=== PATIENT | male | born 1960 | race Caucasian/White ===

== ENCOUNTER → 2019-08-29 11:00 | Outpatient (CLI) | payer BC, SELFPAY ==
--- NOTE | 2019-08-29 11:55 | NEURO_ITS ---
NCS and/or EMG Patient Report Ordering Doctor: Garrett Arora DATE OF SERVICE: 08/29/19 Breezy Smith is a 58-year-old male presents for electrodiagnostic testing of the left upper limb. He reports pain in the left wrist for the past 3 months. Electrodiagnostic findings: Left median motor nerve demonstrates prolonged di stal latency with normal amplitude and reduced conduction velocity. Left ulnar motor nerve demonstrates normal distal latency with an almost 20% drop in conduction across the elbow. Borderline prolonged left median F-wave. Prolonged left median sensory latency at the wrist. On needle EMG, all muscles tested in the left upper limb showed no evidence of denervation with normal motor unit action potentials. Electrodiagnostic impression: This is an abnormal study in the left upper limb. 1. Electrodiagnostic findings demonstrate left-sided median mononeuropathy. This is consistent with a mild to moderate left carpal tunnel syndrome 2. Electrodiagnostic findings demonstrate left-sided ulnar neuropathy, consistent with a mild cubital tunnel syndrome. 3. No electrodiagnostic evidence for cervical radiculopathy. If there are any further questions, please do not hesitate to contact me
== END ==
LOC: PSN 11:02
PROVIDERS: Family Provider Family Medicine; PCP Family Medicine; Referring Provider Family Medicine; Visit Provider Family Medicine
DX: M25.532 Pain in left wrist (principal); R20.0 Anesthesia of skin; R20.2 Paresthesia of skin; R29.898 Other symptoms and signs involving the musculoskeletal system
CPT/HCPCS: 95886; 95909

== ENCOUNTER → 2020-08-27 | Outpatient (CLI) | payer BC, SELFPAY ==
[2020-08-27 14:03] VITALS: BMI 32.3
== END | disposition home or self-care (01) ==
LOC: LABSPEC 15:09
PROVIDERS: PCP Family Medicine; Visit Provider Physician Assistant
DX: Z20.828 Contact with and (suspected) exposure to other viral communicable diseases (principal)
CPT/HCPCS: 87635; U0003

== ENCOUNTER 2023-09-01 23:32 | Emergency (ER) | payer BC, SELFPAY ==
[2023-09-01 23:32] VITALS: BP 150/92; PULSE 77; RESP 18; TEMP 36.6; O2SAT 98; BMI 32.6
--- NOTE | 2023-09-01 23:51 | ED.VIS.BACK ---
HPI History of Present Illness Chief Complaint: Back Detail of Chief Complaint: Left-sided back pain over the latissimus dorsi muscle. Informant: patient Onset/Context/Timing Onset: Days (Onset this past August 27) Context: Sudden Onset Chronic pain exacerbated by: Not applicable Injury: - (No injury the patient is aware of) Timing: Intermittent (Documented HPI narrative) Quality: Dull Location: Thoracic Current Severity: Mild Maximum Severity: Moderate Worsened by: improves with Movement, Bending and Lifting; worse with Ambulation or Night time pain Relieved by: Nothing (Initially ibuprofen now nothing) Associated Symptoms Associated Symptoms: Negative for Numbness, Tingling, Radiation to Right Leg, Radiation to Left Leg, Fever, Abdominal Pain, Dysuria, Unable to Ambulate, Unable to Transfer, Urinary Retention, Urinary Incontinence, Constipation or Fecal Incontinence Narrative Narrative: Patient is a 62-year-old male who lives alone. He presents with left-sided back pain over the latissimus dorsi muscle. Movement of his arm and torso increases pain. Nothing alleviates his pain presently. He states Tuesday evening he took several ibuprofen tablets that he was prescribed by his PCP. Tuesday upon awakening he was pain-free. He now presents because the pain has gotten worse and not improving with ibuprofen. He denies fever, chills night sweats. He denies recent upper respiratory symptoms. He denies history of VTE. He denies leg pain, swelling or discoloration. He denies dyspnea or dyspnea on exertion. He denies abdominal pain, nausea, vomiting or diarrhea. Denies constipation. He denies history of trauma. He has not noted a rash. Prior similar symptoms: No Recent Illness/Hospitalization: No [facility] Medical History Arthritis Chronic neck and back pain HTN (hypertension) Shoulder pain Stroke Home Medications Lisinopril 40 mg PO BID 05/11/17 [History Last Taken Unknown] Metoprolol Tartrate 200 mg PO BREAKFAST 05/11/17 [History Last Taken Unknown] hydrochlorothiazide 25 mg tablet 25 mg PO DAILY 05/11/17 [History Last Taken Unknown] paroxetine HCl 10 mg tablet (Paxil) 10 mg PO DAILY 05/11/17 [History Last Taken Unknown] hydrocodone-acetaminophen 5-325mg 5mg-325mg 1 tab PO Q6H PRN PRN Pain 3 days #10 TABLETS 09/01/23 [Rx Last Taken Unknown] Allergy/AdvReac Type Severity Reaction Status Date / Time Penicillins Allergy Unknown Verified 09/01/23 23:32 Family History Other Hypertension Social History (Updated 09/01/23 @ 23:[address] Chris Gorman MD) household members: none Smoking Status: Current every day smoker tobacco type: cigarettes alcohol intake: never ROS ROS ED Constitutional Constitutional ED: Denies chills, fever(s), subjective or sweats Cardiovascular Cardiovascular: Denies chest pain, orthopnea, palpitations, paroxysmal nocturnal dyspnea or racing heartbeat Respiratory/Chest Respiratory/Chest: Reports other Details: He denies pleuritic pain. ; Denies dyspnea, dyspnea on exertion, orthopnea, paroxysmal nocturnal dyspnea or sputum Gastrointestinal Gastrointestinal: Denies abdominal pain, constipation, diarrhea, melena, nausea or vomiting Genitourinary Genitourinary ED: Denies dysuria, hematuria or urinary frequency Musculoskeletal Musculoskeletal: Reports back pain; Denies arthralgias, myalgias or neck pain Integumentary Denies rash Hematologic/Lymphatic Hematologic/Lymphatic: Denies easy bleeding or easy bruising EXAM Physical Exam Const Vital Signs: 09/01/23 23:32 Temperature 97.9 F Temperature Source Temporal Pulse Rate 77 Respiratory Rate 18 Blood Pressure 150/92 H Blood Pressure Mean 111 Pulse Ox 98 Oxygen Delivery Method Room Air Positive well nourished, well developed and obese General Appearance ED: well developed and NAD; Negative for pallor Nutritional Appearance: obese HEENT Reports moist mucous membranes HEENT Narrative: Head is atraumatic normocephalic. Ears reveal dry skin. Nares patent. Eyes PERRL and EOMs intact bilaterally General Eye ED: Negative for pale conjunctiva or scleral icterus Neck no lymphadenopathy, supple and no JVD Resp normal respiratory effort and clear to auscultation bilaterally Resp Narrative: He does have pain ovation over the left latissimus dorsi muscle. Having him pulled down against resistance because of discomfort. Having him push and pull against resistance also causes some discomfort. Pain is reproducible. Cardio regular rate, regular rhythm, S1 normal heart sound, S2 normal heart sound and no murmurs GI normal to inspection, nondistended, normoactive bowel sounds, soft to palpation, non-tender, non-distended and no masses Back/Spine normal to inspection; Negative for no thoracic nor lumbar tenderness General Back: CVA tenderness; Negative for scar(s) Cervical Spine: Negative for cervical spine tenderness Lumbar Spine / Lower Back: Negative for ROM limited Extremity normal to inspection and no clubbing, cyanosis or edema Neuro oriented x3 and no sensory deficits noted Sensorium / Orientation: alert Psych mental status grossly normal Skin no rashes or lesions noted and no wounds General Skin Exam: Negative for jaundice or pallor MDM MDM MDM Narrative Medical decision making narrative: Patient has muscular pain that was initially alleviated with ibuprofen. He presents now because he is not getting relief. Pain is reproducible and worse with movement. Since he drove himself he was given a prescription for [place] which she can take at home. He also was encouraged apply ice. If he has no improvement after 2 to 3 days she follow-up with his PCP. He does have history of chronic back pain. Per prior records he has no contraindication to NSAIDs. History & Record Review Additional record(s) reviewed:: Prior ED visit and Prior labs Treatment and Re-Evaluation Narrative: Since patient drove himself and he already has already taken 800 mg ibuprofen he was prescribed [place]. Discharge Plan Triage Chief Complaint: Back ED Provider: Chris Gorman Dx/Rx/DC Orders Clinical Impression: Strain of latissimus dorsi muscle Instructions: ED Back Sprain/Strain Prescriptions: New hydrocodone-acetaminophen [hydrocodone-acetaminophen] 5-325 mg tablet 1 tab PO Q6H PRN PRN (Reason: Pain) 3 Days Qty: 10 0RF No Action hydrochlorothiazide 25 MG tablet 25 mg PO DAILY Lisinopril 40 mg PO BID Metoprolol Tartrate 200 mg PO BREAKFAST paroxetine HCl [Paxil] 10 MG tablet 10 mg PO DAILY Primary Care Provider: Garrett Arora Referrals: Garrett Arora MD [Primary Care Provider] - 3-5 Days if not improving Activity Restrictions/Additional Instructions: 1. Apply ice to your back 6-10 times a day 2. Continue taking the ibuprofen you were prescribed by your doctor 3. Take the hydrocodone as instructed. Disposition Disposition: Home, Self Care
[2023-09-02 00:24] VITALS: PULSE 75; RESP 16; O2SAT 98
== END 2023-09-02 00:24 | disposition home or self-care (01) ==
LOC: ED 09-02
PROVIDERS: Emergency Provider Emergency Medicine; PCP Family Medicine; Visit Provider Emergency Medicine
DX: S29.012A Strain of muscle and tendon of back wall of thorax, initial encounter (principal); X58.XXXA Exposure to other specified factors, initial encounter; I10 Essential (primary) hypertension; G89.29 Other chronic pain; Z79.899 Other long term (current) drug therapy; F17.210 Nicotine dependence, cigarettes, uncomplicated
CPT/HCPCS: 99282

== ENCOUNTER → 2025-02-07 | Outpatient (CLI) | payer BC, SELFPAY ==
[2025-02-07 11:42] LABS: Bacteria 0 SEEN /hpf (None Seen); Mucous, Urine 0 SEEN /hpf (<or=2+); Red Blood Cells-Urine 0 SEEN /hpf (0-5); Squamous Epithelial Cells - UA 0 SEEN /hpf (0-5); White Blood Cells 0 SEEN /hpf (0-5)
[2025-02-07 12:18] LABS: Absolute Lymphocyte Count 2.21 X10^3/uL (0.83-4.51); Absolute Neutrophil Count 4.2 X10^3/uL (2.0-7.7); Basophil# 0.05 X10^3/uL; Basophil% 0.7 % (0-1); Eosinophil# 0.38 X10^3/uL; Eosinophils% 5.1 % (0-5); Hematocrit 38.4 % (40-54); Hemoglobin 13.8 g/dL (13.0-16.5); Lymphocyte # 2.21 X10^3/ul (0.83-4.51); Lymphocyte % 29.7 % (19-41); Mean Corp Hgb Conc 35.9 g/dL (32-36); Mean Corpuscular Hgb 32.6 pg (27.0-32.0); Mean Corpuscular Volume 90.8 fL (80-94); Mean Platelet Vol. 9.9 fl (6.2-12.0); Monocyte% 8.1 % (0-10); NRBC Flagged by Analyzer 0 % (0-5); Neutrophil # 4.19 X10^3/uL (2.7-7.7); Neutrophil % 56.1 % (47-70); Platelet Count 228 K/mm3 (150-450); RBC Distribution Width CV 12.1 % (11.6-14.6); RBC Distribution Width SD 40.1 fl (35.1-43.9); Red Blood Count 4.23 M/mm3 (4.6-6.2); White Blood Count 7.5 K/mm3 (4.4-11.0)
[2025-02-07 13:05] LABS: Hemoglobin A1c 6.2 % (<=5.6)
[2025-02-07 13:13] LABS: ALB/GLOB Ratio 1.4 RATIO (0.9-2.4); AST(SGOT) 29 U/L (<=37); Alanine Aminotransfer ALT/SGPT 34 U/L (<=46); Albumin, Serum 4.2 g/dL (3.4-4.8); Alkaline Phosphatase 80 U/L (40-129); Anion Gap 12 (5-15); BUN 21 mg/dL (4-19); BUN/Creat Ratio 18.9 RATIO (10-20); Calcium,Total 9.2 mg/dL (7.6-11.0); Chloride 104 mmol/L (98-108); Cholesterol 149 mg/dL (<=200); Creatinine, Serum 1.13 mg/dL (0.70-1.20); EST Glomerular Filtration Rate 73 (>60); Globulin 3.1 g/dL (2.2-4.2); Glucose 155 mg/dL (70-99); High Density Lipoprotein 31 mg/dL; Low Density Lipoprotein Calc. 53 mg/dL; PSA,Total- Diagnostic 0.66 ng/mL (0.00-4.00); Potassium 3.8 mmol/L (3.3-5.1); Protein, Total 7.2 g/dL (5.9-8.4); Sodium Level 139 mmol/L (133-145); Total Bilirubin 0.47 mg/dL (0.00-1.30); Triglycerides 326 mg/dL; Very Low Density Lipoprotein 65 mg/dL (5-40); cholesterol:hdl ratio screen 4.76
[2025-02-07 13:31] LABS: Color, Urine Yellow (Yellow); Glucose, Dipstick Normal (Normal); Ketone-Dipstick Negative (Negative); Leukocyte Esterase-Dipstick Negative /ul (Negative); Nitrite-Dipstick Negative (Negative); Occult Blood-Urine Negative /ul (Negative); Protein-Dipstick 15 mg/dl (Negative); Urine Bilirubin Dipstick Negative (Negative); Urine Clarity Clear (Clear); Urine Urobilinogen Normal (Normal)
[2025-02-07 14:17] LABS: Microalbumin,Random Urine < 12.0 mg/L (NO RANGE EST.); Microalbumin:Creatinine Ratio UNABLE TO CALCULATE mg/g CRE
== END | disposition home or self-care (01) ==
PROVIDERS: PCP Family Medicine; Referring Provider Family Medicine; Visit Provider Family Medicine
DX: E11.9 Type 2 diabetes mellitus without complications (principal); I10 Essential (primary) hypertension; E78.5 Hyperlipidemia, unspecified; F41.1 Generalized anxiety disorder; Z79.899 Other long term (current) drug therapy
CPT/HCPCS: 36415; 80053; 80061; 81001; 82043; 82570; 83036; 84153; 84443; 85025

== ENCOUNTER 2025-04-12 17:54 | Emergency (ER) | payer BC, SELFPAY ==
[2025-04-12 17:55] VITALS: BP 154/78; PULSE 78; RESP 16; TEMP 37.3; O2SAT 94; BMI 33.9
--- OUTSIDE RECORDS SUMMARY | 2025-04-12 19:10 | XMS RPT_ITS | CCD ---
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 by: Garrett Andrews MD - Fully Assessed Reason for Visit: Results [95] Prescriptions as of 02/08/2025 - amLODIPine (NORVASC) 5 mg tablet Take 1 tablet by mouth once daily. - metoprolol succinate ER (TOPROL XL) 200 mg 24 hr tablet Take one tab a day with 100 mg dose for total of 300 mg a day. - PARoxetine (PAXIL) 10 mg tablet Take 1 tablet by mouth once daily. - triamterene-hydroCHL OROthiazide (DYAZIDE) 37.5-25 mg per capsule Take 1 capsule by mouth once daily. - metoprolol succinate ER (TOPROL XL) 100 mg Take one daily with the 200 mg strength for total of 300 mg a day - lisinopril (ZESTRIL) 40 mg tablet Take 1 tablet by mouth two times a day. - atorvastatin (LIPITOR) 40 mg tablet Take 1 tablet by mouth once daily. 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] 12/08/2016 Hypertensive retinopathy [H35.039] 12/08/2016 Leg cramp [R25.2] 06/02/2017 Well adult exam [Z00.00] 06/10/2017 Screening for colon cancer [Z12.11] 06/10/2017 Type 2 diabetes mellitus without complication, *10/16/2017 ED (erectile dysfunction) of organic origin [N5*01/24/2019 DESIRE (generalized anxiety disorder) [F41.1] 09/26/2014 Carpal tunnel syndrome, left [G56.02] 09/10/2019 Ulnar neuropathy of left upper extremity [G56.2*09/10/2019 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.816] 05/01/2020 History of COVID-19 [Z86.16] 09/29/2021 Ex-smoker [Z87.891] 12/10/2022 Seborrheic dermatitis of scalp [L21.9] 01/25/2024 Medication management [Z79.899] 08/01/2024 Foot callus [L84] 02/06/2025 Numbness and tingling in right hand [R20.0, R20*02/06/2025 Right wrist pain [M25.531] 02/06/2025 Encounter Status:Closed by KARIN YEAGER on 02/08/25 Normal [facility] Calculated very low density lipoprotein (VLDL) cholesterol measurementOrdered By: Garrett Andrews on 02-07-2025 Calculated very low density lipoprotein (VLDL) cholesterol measurement 65 mg/dL High 5-40 [facility] Carbon dioxide, total [Moles /volume] in Central venous bloodOrdered By: Garrett Andrews on 02-07-2025 CO2 [Moles/Vol] 23.0 mmol/L 21.0-32.0 [facility] Chloride assayOrdered By: Earl Andrews on 02-07-2025 Chloride [Moles/Vol] 104 mmol/L 98-108 [facility] Comprehensive Metabolic Prof ilon 02-07-2025 Albumin [Mass/Vol] 4.2 g/dL Normal 3.4-4.8 [facility] Comment on above: Performed By: #### L 100.0100, L400.0001, L502.0250, L501.9940, L501.9520, L500.4050, L500.4100, L501.9985 #### [facility] [address] [place], [address] Albumin/Globulin [Mass ratio] 1.4 {ratio} Normal 0.9-2.4 [facility] Comment on above: Performed By: #### L 100.0100, L400.0001, L502.0250, L501.9940, L501.9520, L500.4050, L500.4100, L501.9985 #### [facility] [address] [place], [address] ALK PHOS 80 U/L Normal 40-129 [facility] Comment on above: Performed By: #### L 100.0100, L400.0001, L502.0250, L501.9940, L501.9520, L500.4050, L500.4100, L501.9985 #### [facility] [address] [place], [address] ALT [Catalytic activity/Vol] 34 U/L Normal <=46 [facility] Comment on above: Performed By: #### L 100.0100, L400.0001, L502.0250, L501.9940, L501.9520, L500.4050, L500.4100, L501.9985 #### [facility] [address] [place], [address] AST [Catalytic activity/Vol] 29 U/L Normal <=37 [facility] Comment on above: Performed By: #### L 100.0100, L400.0001, L502.0250, L501.9940, L501.9520, L500.4050, L500.4100, L501.9985 #### [facility] [address] [place], [address] Bilirubin [Mass/Vol] 0.47 mg/dL Normal 0.00-1.30 [facility] Comment on above: Performed By: #### L 100.0100, L400.0001, L502.0250, L501.9940, L501.9520, L500.4050, L500.4100, L501.9985 #### [facility] [address] [place], [address] BUN/CRE 18.9 RATIO Normal 10-20 [facility] Comment on above: Performed By: #### L 100.0100, L400.0001, L502.0250, L501.9940, L501.9520, L500.4050, L500.4100, L501.9985 #### [facility] [address] [place], [address] Calcium [Mass/Vol] 9.2 mg/dL Normal 7.6-11.0 [facility] Comment on above: Performed By: #### L 100.0100, L400.0001, L502.0250, L501.9940, L501.9520, L500.4050, L500.4100, L501.9985 #### [facility] [address] [place], [address] Chloride [Moles/Vol] 104 mmol/L Normal 98-108 [facility] Comment on above: Performed By: #### L 100.0100, L400.0001, L502.0250, L501.9940, L501.9520, L500.4050, L500.4100, L501.9985 #### [facility] [address] [place], [address] CO2 [Moles/Vol] 23.0 mmol/L Normal 21.0-32.0 [facility] Comment on above: Performed By: #### L 100.0100, L400.0001, L502.0250, L501.9940, L501.9520, L500.4050, L500.4100, L501.9985 #### [facility] [address] [place], [address] Creatinine [Mass/Vol] 1.13 mg/dL Normal 0.70-1.20 [facility] Comment on above: Performed By: #### L 100.0100, L400.0001, L502.0250, L501.9940, L501.9520, L500.4050, L500.4100, L501.9985 #### [facility] [address] [place], [address] GAP 12 Normal 5-15 [facility] Comment on above: Performed By: #### L 100.0100, L400.0001, L502.0250, L501.9940, L501.9520, L500.4050, L500.4100, L501.9985 #### [facility] [address] [place], [address] GFR/1.73 sq M.predicted among non-blacks MDRD (S/P/Bld) [Vol rate/Area] 73 mL/min/{1.73_m2} Normal >60 [facility] Comment on above: Result Comment: mL/m in/1.73m2 CKD-EPI Creatinine Equation (2020) Performed By: #### L 100.0100, L400.0001, L502.0250, L501.9940, L501.9520, L500.4050, L500.4100, L501.9985 #### [facility] [address] [place], [address] Globulin (S) [Mass/Vol] 3.1 g/dL Normal 2.2-4.2 [facility] Comment on above: Performed By: #### L 100.0100, L400.0001, L502.0250, L501.9940, L501.9520, L500.4050, L500.4100, L501.9985 #### [facility] [address] [place], [address] Glucose [Mass/Vol] 155 mg/dL High 70-99 [facility] Comment on above: Performed By: #### L 100.0100, L400.0001, L502.0250, L501.9940, L501.9520, L500.4050, L500.4100, L501.9985 #### [facility] [address] [place], [address] Potassium [Moles/Vol] 3.8 mmol/L Normal 3.3-5.1 [facility] Comment on above: Performed By: #### L 100.0100, L400.0001, L502.0250, L501.9940, L501.9520, L500.4050, L500.4100, L501.9985 #### [facility] [address] [place], [address] Sodium [Moles/Vol] 139 mmol/L Normal 133-145 [facility] Comment on above: Performed By: #### L 100.0100, L400.0001, L502.0250, L501.9940, L501.9520, L500.4050, L500.4100, L501.9985 #### [facility] [address] [place], [address] T PROT 7.2 g/dL Normal 5.9-8.4 [facility] Comment on above: Performed By: #### L 100.0100, L400.0001, L502.0250, L501.9940, L501.9520, L500.4050, L500.4100, L501.9985 #### [facility] [address] [place], [address] Urea nitrogen [Mass/Vol] 21 mg/dL High 4-19 [facility] Comment on above: Performed By: #### L 100.0100, L400.0001, L502.0250, L501.9940, L501.9520, L500.4050, L500.4100, L501.9985 #### [facility] [address] [place], [address] Eosinophil percentageOrdered By: Garrett Andrews on 02-07-2025 Eosinophils/100 WBC (Bld) 5.1 % High 0-5 [facility] Erythrocyte distribution wid th ratioOrdered By: Garrettsimeon Andrews on 02-07-2025 Erythrocyte distribution width (RBC) [Ratio] 12.1 % 11.6-14.6 [facility] Erythrocyte distribution wid th standard deviationOrdered By: Garrett Andrews on 02-07-2025 Erythrocyte distribution width (RBC) [Ratio] 40.1 fl 35.1-43.9 [facility] Glomerular filtration rate ( GFR) estimation/1.73 sq m using serum, plasma, or whole bOrdered By: Garrett Andrews on 02-07-2025 GFR/1.73 sq M.predicted among non-blacks MDRD (S/P/Bld) [Vol rate/Area] 73 mL/min/{1.73_m2} >60 [facility] Comment on above: mL/min/1.73m2 CKD-EP I Creatinine Equation (2020) Hematocrit Auto (Bld) [Volum e fraction]Ordered By: Garrett Andrews on 02-07-2025 Hematocrit (Bld) [Volume fraction] 38.4 % Low 40-54 [facility] Hemoglobin A1con 02-07-2025 HbA1c (Bld) [Mass fraction] 6.2 % High <=5.6 [facility] Comment on above: Result Comment: Norm al < 5.7 % Prediabetic 5.7 - 6.4 % Diabetic >or= 6.5 % Please note range changes. Performed By: #### L 100.0100, L400.0001, L502.0250, L501.9940, L501.9520, L500.4050, L500.4100, L501.9985 #### [facility] [address] [place], [place], [id number] Hemoglobin A1c percentageOrd ered By: Garrett Andrews on 02-07-2025 HbA1c (Bld) [Mass fraction] 6.2 % High <5.7 [facility] Comment on above: Normal < 5.7 % Predi abetic 5.7 - 6.4 % Diabetic >or= 6.5 % Please note range changes. Hemoglobin measurementOrdere d By: Garrett Andrews on 02-07-2025 Hemoglobin (Bld) [Mass/Vol] 13.8 g/dL 13.0-16.5 [facility] Immature granulocytes/100 WB C Auto (Bld)Ordered By: Garrett Andrews on 02-07-2025 Immature granulocytes/100 WBC (Bld) 0.300 % 0.0-0.9 [facility] Comment on above: IG% - Immature Granu locytes (promyelocytes, myelocytes and metamyelocytes) > 1% indicates that a LEFT SHIFT is Present. Ketones Test strip Ql (U)Ord ered By: Garrett Andrews on 02-07-2025 Ketones Ql (U) Negative Negative [facility] LDL calc ser/plasOrdered By: Garrett Andrews on 02-07-2025 Cholesterol in LDL [Mass/Vol] 53 mg/dL [facility] Comment on above: Vwwsluhqnq=376-878 m g/dL & Higher Tkkr=043 mg/dL or greater Laboratory - Chemistry and C hemistry - challengeOrdered By: Garrett Andrews on 02-07-2025 AST [Catalytic activity/Vol] 29 U/L <38 [facility] Lipid Profileon 02-07-2025 CHOL:HDL 4.76 Normal [facility] Comment on above: Performed By: #### L 100.0100, L400.0001, L502.0250, L501.9940, L501.9520, L500.4050, L500.4100, L501.9985 #### [facility] [address] [place], [address] Cholesterol [Mass/Vol] 149 mg/dL Normal <=200 [facility] Comment on above: Result Comment: Chol esterol level, Desirable <200 mg/dL Borderline high cholesterol 200-239 mg/dL High cholesterol >=240 mg/dL Recommendations of the NCEP Adult Treatment Panel for the following risk-cutoff thresholds for the [place] population. Performed By: #### L 100.0100, L400.0001, L502.0250, L501.9940, L501.9520, L500.4050, L500.4100, L501.9985 #### [facility] [address] [place], [place], [id number] Cholesterol in HDL [Mass/Vol] 31 mg/dL Low [facility] Comment on above: Result Comment: Josie onal Cholesterol Education Program (NCEP) guidelines: <40 mg/dL: Low HDL-cholesterol (major risk factor for CHD) >= 60 mg/dL: High HDL-cholesterol (negative risk factor for CHD) HDL-cholesterol is affected by a number of factors, e.g. smoking, exercise, hormones, sex and age. Performed By: #### L 100.0100, L400.0001, L502.0250, L501.9940, L501.9520, L500.4050, L500.4100, L501.9985 #### [facility] [address] [place], [place], [id number] Cholesterol in LDL [Mass/Vol] 53 mg/dL Normal [facility] Comment on above: Result Comment: Bord sdepne=140-966 mg/dL Higher Idri=181 mg/dL or greater Performed By: #### L 100.0100, L400.0001, L502.0250, L501.9940, L501.9520, L500.4050, L500.4100, L501.9985 #### [facility] [address] [place], [address] Cholesterol in VLDL [Mass/Vol] 65 mg/dL High 5-40 [facility] Comment on above: Performed By: #### L 100.0100, L400.0001, L502.0250, L501.9940, L501.9520, L500.4050, L500.4100, L501.9985 #### [facility] [address] [place], [place], [id number] Triglyceride [Mass/Vol] 326 mg/dL High [facility] Comment on above: Result Comment: The drugs N-Acetylcysteine and Metamizole may falsely depress this assay. Normal range: <150 mg/dL Borderline High: 150-199 mg/dL High: 200-499 mg/dL Very High: >500 mg/dL Performed By: #### L 100.0100, L400.0001, L502.0250, L501.9940, L501.9520, L500.4050, L500.4100, L501.9985 #### [facility] [address] [place], [place], [id number] MCV (mean corpuscular volume ) determinationOrdered By: Garrett Andrews on 02-07-2025 MCV (RBC) [Entitic vol] 90.8 fL 80-94 [facility] Mean corpuscular hemoglobin (MCH) determinationOrdered By: Garrett Andrews on 02-07-2025 MCH (RBC) [Entitic mass] 32.6 pg High 27.0-32.0 [facility] Mean corpuscular hemoglobin concentration (MCHC) determinationOrdered By: Garrett Andrews on 02-07-2025 MCHC (RBC) [Mass/Vol] 35.9 g/dL 32-36 [facility] Mean platelet volume determi nationOrdered By: Garrett Andrews on 02-07-2025 Platelet mean volume (Bld) [Entitic vol] 9.9 fL 6.2-12.0 [facility] Microalb:Creat Ratio,Random URon 02-07-2025 Creatinine [Mass/Vol] 145.00 mg/dL Normal 39.00-259.00 [facility] Comment on above: Performed By: #### L 100.0100, L400.0001, L502.0250, L501.9940, L501.9520, L500.4050, L500.4100, L501.9985 #### [facility] [address] [place], [place], [id number] MALB:CREAT UNABLE TO CALCULATE Normal [facility] Comment on above: Performed By: #### L 100.0100, L400.0001, L502.0250, L501.9940, L501.9520, L500.4050, L500.4100, L501.9985 #### [facility] [address] [place], [place], [id number] MICROALBUMIN,UR < 12.0 Normal NO RANGE EST. [facility] Comment on above: Performed By: #### L 100.0100, L400.0001, L502.0250, L501.9940, L501.9520, L500.4050, L500.4100, L501.9985 #### [facility] [address] [place], [place], [id number] Microalbumin/creat ratio urO rdered By: Garrett Andrews on 02-07-2025 Urine microalbumin/creatinine ratio measurement UNABLE TO CALCULATE mg/g CRE [facility] Microscopic analysis of urin e for red blood cells (RBC)Ordered By: Garrett Andrews on 02-07-2025 Microscopic analysis of urine for red blood cells (RBC) 0 SEEN /hpf 0-5 [facility] Monocyte percentageOrdered B y: Garrett Andrews on 02-07-2025 Monocytes/100 WBC (Bld) 8.1 % 0-10 W [facility] Mucus LM Ql (Urine sed)Order ed By: Garrett Andrews on 02-07-2025 Mucus Ql (Urine sed) 0 SEEN /hpf [facility] Neutrophil percentageOrdered By: Garrett Andrews on 02-07-2025 Neutrophils/100 WBC (Bld) 56.1 % 47-70 [facility] Nitrite Test strip Ql (U)Ord ered By: Garrett Andrews on 02-07-2025 Nitrite Ql (U) Negative Negative [facility] Nucleated red blood cell per centageOrdered By: Garrett Andrews on 02-07-2025 Nucleated RBC/100 WBC (Bld) [Ratio] 0 % 0-5 [facility] PSA,Total- Diagnosticon 01-24 PSA, DIAGNOSTIC 0.66 ng/mL Normal 0.00-4.00 [facility] Comment on above: Result Comment: This test was performed using the [employer] tPSA method. Measured values of a patient??sample can vary depending on the testing procedure used. PSA values determined on patient samples by different testing procedures cannot be used interchangeably. If there is a change in PSA assays while monitoring therapy, sequential testing should be performed to confirm baseline values. Performed By: #### L 100.0100, L400.0001, L502.0250, L501.9940, L501.9520, L500.4050, L500.4100, L501.9985 #### [facility] [address] [place], [address] Platelet countOrdered By: Earl Andrews on 02-07-2025 Platelets (Bld) [#/Vol] 228 10*3/uL 150-450 [facility] Potassium measurement (mass/ volume)Ordered By: Garrett Andrews on 02-07-2025 Potassium (Unsp spec) [Mass/Vol] 3.8 mmol/L 3.3-5.1 [facility] Protein Test strip Ql (U)Ord ered By: Garrett Andrews on 02-07-2025 Protein Ql (U) 15 mg/dl High Negative [facility] RBC Auto (Bld) [#/Vol]Ordere d By: Garrett Andrews on 02-07-2025 RBC (Bld) [#/Vol] 4.23 10*6/uL Low 4.6-6.2 [facility] Random urine creatinine lux urement (mass/volume)Ordered By: Garrett Andrews on 02-07-2025 Creatinine Unsp time (U) [Mass/Vol] 145.00 mg/dL 39.00-259.00 [facility] Screening total cholesterol/ high density lipoprotein (HDL) cholesterol ratioOrdered By: Garrett Andrews on 02-07-2025 Cholesterol.total/Choles terol in HDL [Mass ratio] 4.76 {ratio} [facility] Serum creatinine measurement (mass/volume)Ordered By: Garrett Andrews on 02-07-2025 Creatinine [Mass/Vol] 1.13 mg/dL 0.70-1.20 [facility] Serum globulin measurementOr dered By: Garrett Andrews on 02-07-2025 Globulin (S) [Mass/Vol] 3.1 g/dL 2.2-4.2 [facility] Serum glucose measurement (m ass/volume)Ordered By: Garrett Andrews on 02-07-2025 Glucose [Mass/Vol] 155 mg/dL High 70-99 [facility] Serum or plasma alanine moyer otransferase (ALT) measurementOrdered By: Garrett Andrews on 02-07-2025 ALT [Catalytic activity/Vol] 34 U/L <47 [facility] Serum or plasma albumin lux urement (mass/volume)Ordered By: Garrett Andrews on 02-07-2025 Albumin [Mass/Vol] 4.2 g/dL 3.4-4.8 [facility] Serum or plasma albumin/glob ulin mass ratioOrdered By: Garrett Andrews on 02-07-2025 Albumin/Globulin [Mass ratio] 1.4 {ratio} 0.9-2.4 [facility] Serum or plasma alkaline sally sphatase measurementOrdered By: Garrett Andrews on 02-07-2025 ALP [Catalytic activity/Vol] 80 U/L 40-129 [facility] Serum or plasma calcium lux urement (mass/volume)Ordered By: Garrett Andrews on 02-07-2025 Calcium [Mass/Vol] 9.2 mg/dL 7.6-11.0 [facility] Serum or plasma cholesterol in HDL measurement (mass/volume)Ordered By: Garrett Andrews on 02-07-2025 Cholesterol in HDL [Mass/Vol] 31 mg/dL Low >40 [facility] Comment on above: National Cholesterol Education Program (NCEP) guidelines:<40 mg/dL: Low HDL-cholesterol (major risk factor for CHD)>= 60 mg/dL: High HDL-cholesterol (negative risk factor for CHD)HDL-cholesterol is affected by a number of factors, e.g. smoking, exercise, hormones, sex and age. Serum or plasma cholesterol measurement (mass/volume)Ordered By: Garrett Andrews on 02-07-2025 Cholesterol [Mass/Vol] 149 mg/dL <201 [facility] Comment on above: Cholesterol level, D esirable <200 mg/dLBorderline high cholesterol 200-239 mg/dLHigh cholesterol >=240 mg/dLRecommendations of the NCEP Adult Treatment Panel for the following risk-cutoff thresholds for the [place] population. Serum or plasma urea nitroge n measurement (mass/volume)Ordered By: Garrett Andrews on 02-07-2025 Urea nitrogen [Mass/Vol] 21 mg/dL High 4-19 [facility] Sodium levelOrdered By: Kevyn Andrews on 02-07-2025 Sodium [Moles/Vol] 139 mmol/L 133-145 [facility] Squamous epithelial cells de tection in urine sediment by light microscopyOrdered By: Garrett Andrews on 02-07-2025 Epithelial cells.squamous LM Ql (Urine sed) 0 SEEN /hpf 0-5 [facility] TSH DL <= 0.005 mIU/L QnOrde red By: Garrett Andrews on 02-07-2025 TSH Qn 1.020 uIU/mL 0.300-4.200 [facility] Thyroid Stim Hormone (TSH)on 02-07-2025 TSH 1.020 uIU/mL Normal 0.300-4.200 [facility] Comment on above: Performed By: #### L 100.0100, L400.0001, L502.0250, L501.9940, L501.9520, L500.4050, L500.4100, L501.9985 #### [facility] [place], [address] Total proteinOrdered By: Monty Andrews on 02-07-2025 Protein [Mass/Vol] 7.2 g/dL 5.9-8.4 [facility] Triglycerides measurementOrd ered By: Garrett Andrews on 02-07-2025 Triglyceride [Mass/Vol] 326 mg/dL High <199 [facility] Comment on above: The drugs N-Acetylcy steine and Metamizole may falsely depress this assay. Normal range: <150 mg/dLBorderline High: 150-199 mg/dLHigh: 200-499 mg/dLVery High: >500 mg/dL Urinalysis, Completeon 02-07 BACTERIA 0 SEEN Normal None Seen [facility] Comment on above: Order Comment: Urine , Random Performed By: #### L 100.0100, L400.0001, L502.0250, L501.9940, L501.9520, L500.4050, L500.4100, L501.9985 #### [facility] [address] [place], [address] EPI,SQUAMOUS 0 SEEN Normal 0-5 [facility] Comment on above: Order Comment: Urine , Random Performed By: #### L 100.0100, L400.0001, L502.0250, L501.9940, L501.9520, L500.4050, L500.4100, L501.9985 #### [facility] [address] [place], [address] Mucus Ql (Urine sed) 0 SEEN Normal [facility] Comment on above: Order Comment: Urine , Random Performed By: #### L 100.0100, L400.0001, L502.0250, L501.9940, L501.9520, L500.4050, L500.4100, L501.9985 #### [facility] [address] [place], [address] RBC 0 SEEN Normal 0-5 [facility] Comment on above: Order Comment: Urine , Random Performed By: #### L 100.0100, L400.0001, L502.0250, L501.9940, L501.9520, L500.4050, L500.4100, L501.9985 #### [facility] [address] [place], [address] WBC 0 SEEN Normal 0-[address] [place] [address] Comment on above: Order Comment: Urine , Random Performed By: #### L 100.0100, L400.0001, L502.0250, L501.9940, L501.9520, L500.4050, L500.4100, L501.9985 #### [facility] [place], [address] Urine albumin measurement [facility] detection limit of 20 mg/L or less (mass/volume)Ordered By: Garrett Andrews on 02-07-2025 Albumin DL <= 20 mg/L (U) [Mass/Vol] < 12.0 mg/L NO RANGE EST. [facility] Urine clarityOrdered By: Monty Andrews on 02-07-2025 Clarity (U) Clear Clear [facility] Urine color determinationOrd ered By: Garrett Andrews on 02-07-2025 Color (U) Yellow Yellow [facility] Urine glucose detectionOrder ed By: Garrett Andrews on 02-07-2025 Glucose Ql (U) Normal mg/dl Normal [facility] Urine leukocyte esterase det ection by dipstickOrdered By: Garrett Andrews on 02-07-2025 Leukocyte esterase Test strip Ql (U) Negative Negative [facility] Urine pHOrdered By: Garrett Andrews on 02-07-2025 pH (U) 6.0 [pH] 5.0 - 8.0 [facility] Urine sediment bacteria coun t by microscopy (number/high power field)Ordered By: Garrett Andrews on 02-07-2025 Bacteria LM.HPF (Urine sed) [#/Area] 0 /[HPF] None Seen [facility] Urine specific gravity measu rementOrdered By: Garrett Andrews on 02-07-2025 Specific gravity (U) [Rel density] 1.020 1.002-1.030 [facility] Urine urobilinogen measureme ntOrdered By: Garrett Andrews on 02-07-2025 Urobilinogen Ql (U) Normal mg/dl Normal [facility] White blood cell (WBC) count Ordered By: Garrett Andrews on 02-07-2025 WBC (Bld) [#/Vol] 7.5 10*3/uL 4.4-11.0 [facility] White blood cell countOrdere d By: Garrett Andrews on 02-07-2025 White blood cell count 0 SEEN /hpf 0-5 W [facility] CNOVon 02-06-2025 CNOV Office Visit (FAMPWS) BREEZY SMITH ([id number]) 1960 M Date Time Provider Department 02/06/25 10:00 AM [facility] During your visit today, we recorded the following information about you: Pulse Respiration Blood pressure Weight 72/minute 16/minute 128/78 103 kg Height 1.715 m Garrett Andrews MD 02/06/2025 4:09 PM Signed Chief Complaint Patient presents with: Physical HPI Breezy Smith is a 64 year old male who presents here today for Physical. Patient with hx of DM2, HTN, hyperlipidemia, former smoker and those as below. Patient has been doing ok. No new issues or concerns. Past medical history, appointments, medications, allergies reviewed. 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 Mild concentric left ventricular hypertrophy (LVH) 04/16/2014 Seborrheic dermatitis of scalp 01/25/2024 Senile nuclear sclerosis 04/03/2014 Type 2 diabetes mellitus without complication, without long-term current use of insulin (HCC) 10/16/2017 a1c 6.5% oct 2020 Ulnar neuropathy of left upper extremity 09/10/2019 Previous Surgical History PAST SURGICAL HISTORY Procedure Laterality Date 2-D ECHO (TTE); COMPLETE 04/15/2014 EF=55%, mild concentric LVH and diastolic dysfunction TONSILLECTOMY HX Bilateral 1967 US CAROTID 03/28/2014 IC WNL, right carotid bulb mod stenosis near origin of Rt EC Family History FAMILY HISTORY Problem Relation Age of Onset No Ocular Disease Father Cancer Father Diabetes Father Hypertension Father No Ocular Disease Mother Cancer Mother Hypertension Mother Cataract Sister Diabetes Sister Hypertension Sister No Ocular Disease Brother Cancer Brother Hypertension Brother No Ocular Disease Maternal Grandmother Hypertension Maternal Grandmother Cataract Maternal Grandfather Cancer Maternal Grandfather Hypertension Maternal Grandfather No Ocular Disease Paternal Grandmother Hypertension Paternal Grandmother No Ocular Disease Paternal Grandfather Hypertension Paternal Grandfather No Ocular Disease Brother Cancer Brother Hypertension Brother Patient Allergies ALLERGIES Allergen Reactions Bees Anaphylaxis Wasps Anaphylaxis Penicillins Other: See Comments Pt states took when young just made him real sick Current Medications Current Outpatient Medications on File Prior to Visit Medication Sig metoprolol succinate ER (TOPROL XL) 100 mg Take one daily with the 200 mg strength for total of 300 mg a day lisinopril (ZESTRIL) 40 mg tablet Take 1 tablet by mouth two times a day. atorvastatin (LIPITOR) 40 mg tablet Take 1 tablet by mouth once daily. meloxicam (MOBIC) 7.5 mg tablet Take 1 tablet by mouth once daily. amLODIPine (NORVASC) 5 mg tablet Take 1 tablet by mouth once daily. metoprolol succinate ER (TOPROL XL) 200 mg 24 hr tablet Take one tab a day with 100 mg dose for total of 300 mg a day. PARoxetine (PAXIL) 10 mg tablet Take 1 tablet by mouth once daily. triamterene-hydroCHL OROthiazide (DYAZIDE) 37.5-25 mg per capsule Take 1 capsule by mouth once daily. ketoconazole (NIZORAL) 2 % shampoo Apply to affected area two times a week. ibuprofen (MOTRIN) 800 mg tablet TAKE 1 TABLET BY MOUTH EVERY 8 HOURS NEEDED FOR PAIN No current facility-administere d medications on file prior to visit. Social History Social History Tobacco Use Smoking status: Former Current packs/day: 0.00 Average packs/day: 0.5 packs/day for 15.0 years (7.5 ttl pk-yrs) Types: Cigarettes Start date: 09/2004 Quit date: 09/2019 Years since quittin.3 Smokeless tobacco: Never Vaping Use Vaping status: Never Used Substance Use Topics Alcohol use: Yes Alcohol/week: 2.0 standard drinks of alcohol Types: 2 Cans of Beer (12oz) per week Drug use: No Review of Symptoms REVIEW OF SYSTEMS GENERAL: No weight loss, malaise or fevers HEENT: Negative for frequent or significant headaches, No changes in hearing or vision, no nose bleeds or other nasal problems NECK: Negative for lumps, goiter, pain and significant neck swelling RESPIRATORY: Negative for cough, hemoptysis, wheezing, COPD, dyspnea or shortness of breath CARDIOVASCULAR: Negative for chest pain, leg swelling, hypertension, CHF (more content not included)... Normal [facility] CNNURSEon 10-31-2024 [facility] Nurse Visit (FAMPWS) BREEZY SMITH ([id number]) 1960 M Date Time Provider Department 10/31/24 10:00 AM [place] [facility] During your visit today, we recorded the following information about you: Ada Louise LPN 10/31/2024 10:14 AM Signed Patient presents for Shingrix vaccine. No problems at this time. Tolerated injection well. Ada Louise LPN Allergies As of Date: 10/31/2024 Noted Allergy Reaction BEES 03/26/2014 10 - Anaphylaxis WASPS 07/16/2014 10 - Anaphylaxis PENICILLINS 03/26/2014 14 - Other: See Comments Comments: Pt states took when young just made him real sick Date Reviewed: 09/20/2024 Reviewed by: Lucia Last MA - Fully Assessed Reason for Visit: Imm/Inj [58] Primary Visit Diagnosis:Encounter for immunization [Z23] Prescriptions as of 10/31/2024 - meloxicam (MOBIC) 7.5 mg tablet Take 1 tablet by mouth once daily. - amLODIPine (NORVASC) 5 mg tablet Take 1 tablet by mouth once daily. - lisinopril (ZESTRIL) 40 mg tablet Take 1 tablet by mouth two times a day. - metoprolol succinate ER (TOPROL XL) 100 mg Take one daily with the 200 mg strength for total of 300 mg a day - metoprolol succinate ER (TOPROL XL) 200 mg 24 hr tablet Take one tab a day with 100 mg dose for total of 300 mg a day. - PARoxetine (PAXIL) 10 mg tablet Take 1 tablet by mouth once daily. - triamterene-hydroCHL OROthiazide (DYAZIDE) 37.5-25 mg per capsule Take 1 capsule by mouth once daily. - atorvastatin (LIPITOR) 40 mg tablet Take 1 tablet by mouth once daily. - ketoconazole (NIZORAL) 2 % shampoo Apply to affected area two times a week. 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] 12/08/2016 Hypertensive retinopathy [H35.039] 12/08/2016 Leg cramp [R25.2] 06/02/2017 Well adult exam [Z00.00] 06/10/2017 Screening for colon cancer [Z12.11] 06/10/2017 Type 2 diabetes mellitus without complication, *10/16/2017 ED (erectile dysfunction) of organic origin [N5*01/24/2019 DESIRE (generalized anxiety disorder) [F41.1] 09/26/2014 Carpal tunnel syndrome, left [G56.02] 09/10/2019 Ulnar neuropathy of left upper extremity [G56.2*09/10/2019 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.816] 05/01/2020 History of COVID-19 [Z86.16] 09/29/2021 Ex-smoker [Z87.891] 12/10/2022 Seborrheic dermatitis of scalp [L21.9] 01/25/2024 Medication management [Z79.899] 08/01/2024 Encounter Status:Closed by ADA LOUISE on 10/31/24 [facility] ([id number]) 1960 Date Time Provider Department 09/24/24 [facility] During your visit today, we recorded the following information about you: Tip Jones APRN.[facility] 09/24/2024 11:59 AM Signed Please let patient know his xray show degenerative arthritis. Lucia Last MA 09/24/2024 1:34 PM Signed Pt notified and asking if you had any recommendations for the pain he is having- states he can hardly use his hand. Please advise JOVANNY Chang Danielle, APRN.[facility] 09/24/2024 2:12 PM Signed Please let patient know I have sent in a short course of meloxicam which is an antiinflammatory. DO not take with ibuprofen. I have also have ordered PT. Lucia Last MA 09/24/2024 2:21 PM Signed Pt notified and verbalized understanding Lucia Last MA Allergies As of Date: 09/24/2024 Noted Allergy Reaction BEES 03/26/2014 10 - Anaphylaxis WASPS 07/16/2014 10 - Anaphylaxis PENICILLINS 03/26/2014 14 - Other: See Comments Comments: Pt states took when young just made him real sick Date Reviewed: 09/20/2024 Reviewed by: Workman, Lucia, MA - Fully Assessed Reason for Visit: Results [95] Primary Visit Diagnosis:Right hand pain [M79.641] Order(s):meloxicam (MOBIC) 7.5 mg tabletTake 1 tablet by mouth once daily.Disp: 30 tabletRfl: 0 CONSULT TO PHYSICAL THERAPY [90] Order #: [id number]: 1 FUTURE Prescriptions as of 09/24/2024 - meloxicam (MOBIC) 7.5 mg tablet Take 1 tablet by mouth once daily. - amLODIPine (NORVASC) 5 mg tablet Take 1 tablet by mouth once daily. - lisinopril (ZESTRIL) 40 mg tablet Take 1 tablet by mouth two times a day. - metoprolol succinate ER (TOPROL XL) 100 mg Take one daily with the 200 mg strength for total of 300 mg a day - metoprolol succinate ER (TOPROL XL) 200 mg 24 hr tablet Take one tab a day with 100 mg dose for total of 300 mg a day. - PARoxetine (PAXIL) 10 mg tablet Take 1 tablet by mouth once daily. - triamterene-hydroCHL OROthiazide (DYAZIDE) 37.5-25 mg per capsule Take 1 capsule by mouth once daily. - atorvastatin (LIPITOR) 40 mg tablet Take 1 tablet by mouth once daily. - ketoconazole (NIZORAL) 2 % shampoo Apply to affected area two times a week. 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] 12/08/2016 Hypertensive retinopathy [H35.039] 12/08/2016 Leg cramp [R25.2] 06/02/2017 Well adult exam [Z00.00] 06/10/2017 Screening for colon cancer [Z12.11] 06/10/2017 Type 2 diabetes mellitus without complication, *10/16/2017 ED (erectile dysfunction) of organic origin [N5*01/24/2019 DESIRE (generalized anxiety disorder) [F41.1] 09/26/2014 Carpal tunnel syndrome, left [G56.02] 09/10/2019 Ulnar neuropathy of left upper extremity [G56.2*09/10/2019 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.816] 05/01/2020 History of COVID-19 [Z86.16] 09/29/2021 Ex-smoker [Z87.891] 12/10/2022 Seborrheic dermatitis of scalp [L21.9] 01/25/2024 Medication management [Z79.899] 08/01/2024 Prescriptions ordered this encounter Disp Refills Start End MELOXICAM 7.5 MG TABLET 30 t* 0 09/24/2024 Route: ORAL Sig: Take 1 tablet by mouth once daily. Encounter Status:Closed by WORKMAN LUCIA DELGADILLO on 09/24/24 [facility] CNOVon 09-20-2024 CNOV [facility] KULDIPBREEZY ([id number]) 1960 M Date Time Provider Department 09/20/24 9:00 AM TIP JONES During your visit today, we recorded the following information about you: Pulse Respiration Blood pressure Weight 60/minute 14/minute 131/76 102.1 kg Tip Jones APRN.[facility] 09/20/2024 9:00 AM Signed Chief Complaint Patient presents with: Wrist Pain: Right wrist X 6 months HPI Breezy Smith is a 63 year old male who presents here today for Above Complaints.. Patient presents for right hand pain x6 months. Reports shooting pains through his hands intermittently throughout the day. Patient reports he has been resting his hand and wrist but continues to have pain. Also reports weakness with lifting and physician internist and is unable to grasp even a coffee mug as well as swelling. Reports he had a similar situation a few years ago and was told one of the metacarpals was very degenerative. Currently using ibuprofen Past medical history, appointments, medications, allergies reviewed. 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 Mild concentric left ventricular hypertrophy (LVH) 04/16/2014 Seborrheic dermatitis of scalp 01/25/2024 Senile nuclear sclerosis 04/03/2014 Type 2 diabetes mellitus without complication, without long-term current use of insulin (HCC) 10/16/2017 a1c 6.5% oct 2020 Ulnar neuropathy of left upper extremity 09/10/2019 Previous Surgical History PAST SURGICAL HISTORY Procedure Laterality Date 2-D ECHO (TTE); COMPLETE 04/15/2014 EF=55%, mild concentric LVH and diastolic dysfunction TONSILLECTOMY HX Bilateral 1968 US CAROTID 03/28/2014 IC WNL, right carotid bulb mod stenosis near origin of Rt EC Family History FAMILY HISTORY Problem Relation Age of Onset No Ocular Disease Father Cancer Father Diabetes Father Hypertension Father No Ocular Disease Mother Cancer Mother Hypertension Mother Cataract Sister Diabetes Sister Hypertension Sister No Ocular Disease Brother Cancer Brother Hypertension Brother No Ocular Disease Maternal Grandmother Hypertension Maternal Grandmother Cataract Maternal Grandfather Cancer Maternal Grandfather Hypertension Maternal Grandfather No Ocular Disease Paternal Grandmother Hypertension Paternal Grandmother No Ocular Disease Paternal Grandfather Hypertension Paternal Grandfather No Ocular Disease Brother Cancer Brother Hypertension Brother Patient Allergies ALLERGIES Allergen Reactions Bees Anaphylaxis Wasps Anaphylaxis Penicillins Other: See Comments Pt states took when young just made him real sick Current Medications Current Outpatient Medications on File Prior to Visit Medication Sig amLODIPine (NORVASC) 5 mg tablet Take 1 tablet by mouth once daily. lisinopril (ZESTRIL) 40 mg tablet Take 1 tablet by mouth two times a day. metoprolol succinate ER (TOPROL XL) 100 mg Take one daily with the 200 mg strength for total of 300 mg a day metoprolol succinate ER (TOPROL XL) 200 mg 24 hr tablet Take one tab a day with 100 mg dose for total of 300 mg a day. PARoxetine (PAXIL) 10 mg tablet Take 1 tablet by mouth once daily. triamterene-hydroCHL OROthiazide (DYAZIDE) 37.5-25 mg per capsule Take 1 capsule by mouth once daily. atorvastatin (LIPITOR) 40 mg tablet Take 1 tablet by mouth once daily. ketoconazole (NIZORAL) 2 % shampoo Apply to affected area two times a week. ibuprofen (MOTRIN) 800 mg tablet TAKE 1 TABLET BY MOUTH EVERY 8 HOURS NEEDED FOR PAIN No current facility-administere d medications on file prior to visit. Social History Social History Tobacco Use Smoking status: Former Current packs/day: 0.00 Average packs/day: 0.5 packs/day for 15.0 years (7.5 ttl pk-yrs) Types: Cigarettes Start date: 09/2004 Quit date: 09/2019 Years since quittin.9 Smokeless tobacco: Never Vaping Use Vaping status: Never Used Substance Use Topics Alcohol use: Yes Alcohol/week: 2.0 standard drinks of alcohol Types: 2 Cans of Beer (12oz) per week Drug use: No Review of Symptoms REVIEW OF SYSTEMS SEE HPI EXAM: BP 131/76 Pulse 60 Resp 14 Wt 102.1 kg (225 lb) BMI 34.90 kg/m? General Appearance: Well appearing, alert, (more content not included)... Normal [facility] 09-20-2024 STEFAN Telephone (FAMPWS) BREEZY SMITH ([id number]) 1960 M Date Time Provider Department 09/20/24 GARRETT ANDREWS During your visit today, we recorded the following information about you: Cheyanne Malhotra RN 09/20/2024 8:18 AM Signed Patient calling with concern for right hand discomfort x 6 months. Has worsened over last month. Denies injury. Experiences right thumb numbness at times. Also experiences posterior hand discomfort when opens hand up; states it feels like it's burning like fire. No swelling, redness or temp change to right hand or arm. States he has been wearing an lawson bandage to his right hand and has been using his left hand mostly. Appt scheduled for today, for evaluation. Cheyanne Malhotra RN Allergies As of Date: 09/20/2024 Noted Allergy Reaction BEES 03/26/2014 10 - Anaphylaxis WASPS 07/16/2014 10 - Anaphylaxis PENICILLINS 03/26/2014 14 - Other: See Comments Comments: Pt states took when elijah just made him real sick Date Reviewed: 08/01/2024 Reviewed by: Garrett Andrews MD - Fully Assessed Prescriptions as of 09/20/2024 - amLODIPine (NORVASC) 5 mg tablet Take 1 tablet by mouth once daily. - lisinopril (ZESTRIL) 40 mg tablet Take 1 tablet by mouth two times a day. - metoprolol succinate ER (TOPROL XL) 100 mg Take one daily with the 200 mg strength for total of 300 mg a day - metoprolol succinate ER (TOPROL XL) 200 mg 24 hr tablet Take one tab a day with 100 mg dose for total of 300 mg a day. - PARoxetine (PAXIL) 10 mg tablet Take 1 tablet by mouth once daily. - triamterene-hydroCHL OROthiazide (DYAZIDE) 37.5-25 mg per capsule Take 1 capsule by mouth once daily. - atorvastatin (LIPITOR) 40 mg tablet Take 1 tablet by mouth once daily. - ketoconazole (NIZORAL) 2 % shampoo Apply to affected area two times a week. 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] 12/08/2016 Hypertensive retinopathy [H35.039] 12/08/2016 Leg cramp [R25.2] 06/02/2017 Well adult exam [Z00.00] 06/10/2017 Screening for colon cancer [Z12.11] 06/10/2017 Type 2 diabetes mellitus without complication, *10/16/2017 ED (erectile dysfunction) of organic origin [N5*01/24/2019 DESIRE (generalized anxiety disorder) [F41.1] 09/26/2014 Carpal tunnel syndrome, left [G56.02] 09/10/2019 Ulnar neuropathy of left upper extremity [G56.2*09/10/2019 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.816] 05/01/2020 History of COVID-19 [Z86.16] 09/29/2021 Ex-smoker [Z87.891] 12/10/2022 Seborrheic dermatitis of scalp [L21.9] 01/25/2024 Medication management [Z79.899] 08/01/2024 Encounter Status:Closed by CHEYANNE MALHOTRA on 09/20/24 [facility] XR WRIST 3V PA/LAT/OBL RTon 09-20-2024 XR WRIST 3V PA/LAT/OBL RT * * *Final Report* * * DATE OF EXAM: Sep 20 2024 9:20AM WOX [id number] - XR WRIST 3V PA/LAT/OBL RT / PROCEDURE REASON: multiple diagnoses * * * * Physician Interpretation * * * * PROCEDURE: Right wrist INDICATION: Right hand pain Right hand weakness .Pt. states Rt wrist pain, radial side, for 1 month. No injury. TECHNIQUE: XR WRIST 3V PA/LAT/OBL RT COMPARISON: None FINDINGS: Mild radiocarpal and moderate 1st CMC joint osteoarthrosis. No erosion or focal soft tissue swelling. No fracture or dislocation. IMPRESSION: Degenerative changes Landscape Contractor: QUINCY Transcribe Date/Time: Sep 24 2024 11:22A Dictated by : PEE WRIGHT MD This examination was interpreted and the report reviewed and electronically signed by: PEE WRIGHT MD on Sep 24 2024 11:23AM EST [id number] Normal [facility] BREEZY SMITH ([id number]) 1960 M Date Time Provider Department 08/02/24 NOEMI DICKENS [facility] During your visit today, we recorded the following information about you: Noemi Dickens PA-C 08/02/2024 8:11 AM Signed Let patient know that his A1c is 6.2% which is stable. Cholesterol looks good. His trigs have improved. LDL still in great range. Continue current management Thanks. RADHA Hernandez Sherill A, LPN 08/02/2024 8:42 AM Signed Patient notified of results and provider's instructions. Patient verbalizes understanding. Karin Yeager LPN Allergies As of Date: 08/02/2024 Noted Allergy Reaction BEES 03/26/2014 10 - Anaphylaxis WASPS 07/16/2014 10 - Anaphylaxis PENICILLINS 03/26/2014 14 - Other: See Comments Comments: Pt states took when young just made him real sick Date Reviewed: 08/01/2024 Reviewed by: Garrett Andrews MD - Fully Assessed Reason for Visit: Results [95] Prescriptions as of 08/02/2024 - amLODIPine (NORVASC) 5 mg tablet Take 1 tablet by mouth once daily. - lisinopril (ZESTRIL) 40 mg tablet Take 1 tablet by mouth two times a day. - metoprolol succinate ER (TOPROL XL) 100 mg Take one daily with the 200 mg strength for total of 300 mg a day - metoprolol succinate ER (TOPROL XL) 200 mg 24 hr tablet Take one tab a day with 100 mg dose for total of 300 mg a day. - PARoxetine (PAXIL) 10 mg tablet Take 1 tablet by mouth once daily. - triamterene-hydroCHL OROthiazide (DYAZIDE) 37.5-25 mg per capsule Take 1 capsule by mouth once daily. - atorvastatin (LIPITOR) 40 mg tablet Take 1 tablet by mouth once daily. - ketoconazole (NIZORAL) 2 % shampoo Apply to affected area two times a week. 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] 12/08/2016 Hypertensive retinopathy [H35.039] 12/08/2016 Leg cramp [R25.2] 06/02/2017 Well adult exam [Z00.00] 06/10/2017 Screening for colon cancer [Z12.11] 06/10/2017 Type 2 diabetes mellitus without complication, *10/16/2017 ED (erectile dysfunction) of organic origin [N5*01/24/2019 DESIRE (generalized anxiety disorder) [F41.1] 09/26/2014 Carpal tunnel syndrome, left [G56.02] 09/10/2019 Ulnar neuropathy of left upper extremity [G56.2*09/10/2019 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.816] 05/01/2020 History of COVID-19 [Z86.16] 09/29/2021 Ex-smoker [Z87.891] 12/10/2022 Seborrheic dermatitis of scalp [L21.9] 01/25/2024 Medication management [Z79.899] 08/01/2024 Encounter Status:Closed by KARIN YEAGER on 08/02/24 [facility] CNOVon 08-01-2024 CNOV Office Visit (FAMPWS) BREEZY SMITH ([id number]) 1960 M Date Time Provider Department 08/01/24 9:40 AM [facility] During your visit today, we recorded the following information about you: Pulse Respiration Blood pressure Weight 64/minute 16/minute 128/74 101.2 kg Garrett Andrews MD 08/01/2024 4:37 PM Signed Chief Complaint Patient presents with: F/U 6 months HPI Breezy Smith is a 63 year old male who presents here today for 6 month follow up. Patient has been doing well. No issues or concerns. Would like the shingrix and flu vaccinations. Patient with hx of DM2, HTN, hyperlipidemia, former smoker and those as below. Component Ref Range AND Units 6 mo ago (01/25/24) 11 mo ago (08/09/23) 1 yr ago (12/10/22) 2 yr ago (06/01/22) 2 yr ago (11/25/21) 3 yr ago (05/23/21) 3 yr ago (11/15/20) Hemoglobin A1C 4.3 - 5.6 % 6.2 High 6.0 High CM 6.0 High CM 6.3 High CM 6.2 High CM 6.4 High CM 6.5 High Patient sees Optometry Dr. Fuentes; Past medical history, appointments, medications, allergies reviewed. 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 Mild concentric left ventricular hypertrophy (LVH) 04/16/2014 Senile nuclear sclerosis 04/03/2014 Type 2 diabetes mellitus without complication, without long-term current use of insulin (HCC) 10/16/2017 a1c 6.5% oct 2020 Ulnar neuropathy of left upper extremity 09/10/2019 Previous Surgical History PAST SURGICAL HISTORY Procedure Laterality Date 2-D ECHO (TTE); COMPLETE 04/15/2014 EF=55%, mild concentric LVH and diastolic dysfunction TONSILLECTOMY HX Bilateral 1967 US CAROTID 03/28/2014 IC WNL, right carotid bulb mod stenosis near origin of Rt EC Family History FAMILY HISTORY Problem Relation Age of Onset No Ocular Disease Father Cancer Father Diabetes Father Hypertension Father No Ocular Disease Mother Cancer Mother Hypertension Mother Cataract Sister Diabetes Sister Hypertension Sister No Ocular Disease Brother Cancer Brother Hypertension Brother No Ocular Disease Maternal Grandmother Hypertension Maternal Grandmother Cataract Maternal Grandfather Cancer Maternal Grandfather Hypertension Maternal Grandfather No Ocular Disease Paternal Grandmother Hypertension Paternal Grandmother No Ocular Disease Paternal Grandfather Hypertension Paternal Grandfather No Ocular Disease Brother Cancer Brother Hypertension Brother Patient Allergies ALLERGIES Allergen Reactions Bees Anaphylaxis Wasps Anaphylaxis Penicillins Other: See Comments Pt states took when young just made him real sick Current Medications Current Outpatient Medications on File Prior to Visit Medication Sig atorvastatin (LIPITOR) 40 mg tablet Take 1 tablet by mouth once daily. amLODIPine (NORVASC) 5 mg tablet Take 1 tablet by mouth once daily. metoprolol succinate ER (TOPROL XL) 100 mg Take one daily with the 200 mg strength for total of 300 mg a day metoprolol succinate ER (TOPROL XL) 200 mg 24 hr tablet Take one tab a day with 100 mg dose for total of 300 mg a day. PARoxetine (PAXIL) 10 mg tablet Take 1 tablet by mouth once daily. triamterene-hydroCHL OROthiazide (DYAZIDE) 37.5-25 mg per capsule Take 1 capsule by mouth once daily. lisinopril (ZESTRIL) 40 mg tablet Take 1 tablet by mouth two times a day. ketoconazole (NIZORAL) 2 % shampoo Apply to affected area two times a week. ibuprofen (MOTRIN) 800 mg tablet TAKE 1 TABLET BY MOUTH EVERY 8 HOURS NEEDED FOR PAIN No current facility-administere d medications on file prior to visit. Social History Social History Tobacco Use Smoking status: Former Current packs/day: 0.00 Average packs/day: 0.5 packs/day for 15.0 years (7.5 ttl pk-yrs) Types: Cigarettes Start date: 09/2004 Quit date: 09/2019 Years since quittin.8 Smokeless tobacco: Never Vaping Use Vaping status: Never Used Substance Use Topics Alcohol use: Yes Alcohol/week: 2.0 standard drinks of alcohol Types: 2 Cans of Beer (12oz) per week Drug use: No Review of Symptoms REVIEW OF SYSTEMS GENERAL: No weight loss, malaise or fevers NECK: Negative for lumps, goiter, pain and significant neck swelling RESPIRATORY: Negative for cough, hemoptysi (more content not included)... Normal [facility] HbA1c (Bld)on 08-01-2024 Average glucose Estimated from glycated hemoglobin (Bld) [Mass/Vol] 131 mg/dL Normal [facility] Comment on above: Order Comment: Brynn mascorro Type: BLOOD SPECIMENOrdering Facility: [facility] Address: [address] [place] [address] Result Comment: eAG: (Estimated average glucose) is a calculated value from HgbA1c and is construction representative of the average blood glucose level in the last 2-3 month period. Performed By: #### 5 5454-3 ####[facility] LABCLIA [id number] [facility] [id number] [address] [place] HbA1c (Bld) [Mass fraction] 6.2 % High 4.3-5.6 [facility] Comment on above: Order Comment: Brynn mascorro Type: BLOOD SPECIMENOrdering Facility: [facility] Address: [address] [place] [address] Result Comment: Amer ican Diabetes Association guidelines indicate that patients with HgbA1c in the range 5.7-6.4% are at increased risk for development of diabetes, and intervention by lifestyle modification may be beneficial. HgbA1c greater or equal to 6.5% is considered diagnostic of diabetes. Performed By: #### 5 5454-3 ####[facility] LABCLIA [id number] [address] OF [place] LIPID PANEL, NONFASTINGon Cholesterol [Mass/Vol] 144 mg/dL Normal <200 [facility] Comment on above: Order Comment: Speci men Type: BLOOD SPECIMENOrdering Facility: [facility] Address: [address] [place] [address] Result Comment: <200 mg/dL, Desirable 200-239 mg/dL, Borderline high >239 mg/dL, High Performed By: #### L IPNF ####[facility] LABIA [id number] [address] STATES OF [facility] HDL CHOLESTEROL, NF 38 mg/dL Low >39 [facility] Comment on above: Order Comment: Brynn [facility] Type: BLOOD SPECIMENOrdering Facility: [facility] Address: [address] [place] [address] Result Comment: 40-5 9 mg/dL, Acceptable >59 mg/dL, High: Negative risk factor for coronary heart disease <40 mg/dL, Low: Positive risk factor for coronary heart disease Performed By: #### L IPNF ####[facility] LABIA [id number] [address] STATES OF [place] LDL CHOLESTEROL, NF 78 mg/dL Normal <100 [facility] Comment on above: Order Comment: Lini [facility] Type: BLOOD SPECIMENOrdering Facility: [facility] Address: [address] [place] [address] Result Comment: <100 mg/dL, Optimal 100-129 mg/dL, Near optimal/above optimal 130-159 mg/dL, Borderline high 160-189 mg/dL, High >189 mg/dL, Very high Secondary prevention optimal LDL Cholesterol levels are recommended to be < 70 mg/dL Performed By: #### L IPNF ####[facility] LABCLIA [id number] [place] [address] [place] LDL/HDL RATIO, NF 2.05 mg/dL Normal <2.54 [facility] Comment on above: Order Comment: Speci men Type: BLOOD SPECIMENOrdering Facility: [facility] Address: [address] [place] [address] Result Comment: Refe rence: 1. National Cholesterol Education Program ATP III Guideline At-A-Glance Quick Desk Reference: National Heart, Lung, and Blood [place]. National Institutes of Health. 2001: NIH Publication No. 01-3305. 2. An International Atherosclerosis Society position paper: global recommendations for the management of dyslipidemia: executive summary, Atherosclerosis. 2014: 232(2):410-413. Performed By: #### L IPNF ####[facility] LABIA [id number] [place] [address] [place] NON HDL CHOL, NF 106 mg/dL Normal <130 [facility] Comment on above: Order Comment: Speci men Type: BLOOD SPECIMENOrdering Facility: [facility] Address: [address] [place] [address] Result Comment: <130 mg/dL, Optimal 130-159 mg/dL, Near optimal/above optimal 160-189 mg/dL, Borderline high 190-219 mg/dL, High >219 mg/dL, Very high Secondary prevention optimal non HDL Cholesterol levels are recommended to be <100 mg/dL Performed By: #### L IPNF ####[facility] LABIA [id number] [address] STATES OF [place] T CHOL/HDL RATIO NF 3.79 mg/dL Normal <5.10 [facility] Comment on above: Order Comment: Speci men Type: BLOOD SPECIMENOrdering Facility: [facility] Address: [address] [place] [address] Performed By: #### L IPNF ####[facility] LABIA [id number] [place] [address] [place], [place] 141 mg/dL Normal <150 [facility] Comment on above: Order Comment: Speci men Type: BLOOD SPECIMENOrdering Facility: [facility] Address: [address] [place] [address] Result Comment: <150 mg/dL, Normal 150-199 mg/dL, Borderline high 200-499 mg/dL, High >499 mg/dL, Very high Performed By: #### L IPNF ####[facility] LABCLIA [id number] [address] STATES OF [facility] VLDL CHOLESTEROL, NF 28 mg/dL Normal <30 [facility] Comment on above: Order Comment: Speci men Type: BLOOD SPECIMENOrdering Facility: [facility] Address: [address] [place] [address] Performed By: #### L IPNF ####[facility] LABIA [id number] [address] OF [facility] Office Visit Reporton 2023 Office Visit Report [facility] [address] [place] [address] OFFICE VISIT Date of Service: 03/04/24 MR#: [id number] Acct: [id number] Patient: BREEZY SMITH Rep #: [id number] : 1960 Provider: ONEYDA roman Age/Sex: 63/M Location: [facility] Status: Signed Intake Vital Signs 09/01/23 23:32 Height 5 ft 8 in Intake Visit 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 Chief Complaint: Preemployment physical Allergies Penicillins Allergy (Verified 09/01/23 23:32) Unknown Office Procedures [facility] Billing Sheet Testing Breath Alcohol in [facility]: Yes Pre-Employment Drug Screen: Yes 06/29/24 145 Date 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 Signature: Date (if applicable) CC: Normal [facility] LIPID PANEL, NONFASTINGon Cholesterol [Mass/Vol] 142 mg/dL <200 mg/dL [facility] HDL Cholesterol, Nonfasting 38 mg/dL Low >39 mg/dL [facility] LDL Cholesterol, Nonfasting 74 mg/dL <100 mg/dL [facility] LDL/HDL Ratio, Nonfasting 1.95 mg/dL <2.54 mg/dL [facility] Non HDL Cholesterol, Nonfasting 104 mg/dL <130 mg/dL [facility] Total Chol/HDL Ratio, Nonfasting 3.74 mg/dL <5.10 mg/dL [facility] Triglycerides, Nonfasting 149 mg/dL <150 mg/dL [facility] VLDL Cholesterol, Nonfasting 30 mg/dL High <30 mg/dL [facility] HbA1c (Bld)on 08-09-2023 Average glucose Estimated from glycated hemoglobin (Bld) [Mass/Vol] 126 mg/dL [facility] HbA1c (Bld) [Mass fraction] 6.0 % High 4.3 - 5.6 % [facility] OCT OPTIC NERVE CIRRUS OU (B OTH EYES) [facility] Vital Signs Date Time Vital Sign Value Performing Clinician Karissai derrick 03-01-2025 11:53-0400 Body height 172.[address] Garrett Andrews MD Work Phone: [facility] 02-06-2025 10:35-0400 Diastolic blood pressure 78 mm[Hg] Garrett Andrews MD Work Phone: [facility] 02-06-2025 10:35-0400 Systolic blood pressure 128 mm[Hg] Garrett Andrews MD Work Phone: [facility] 02-06-2025 09:57-0400 Body height 171.5 cm Garrett Andrews MD Work Phone: [facility] 02-06-2025 09:57-0400 Body mass index (BMI) [Ratio] 35.03 kg/m2 Garrett Andrews MD Work Phone: [facility] 02-06-2025 09:57-0400 Body weight 102.97 kg Garrett Andrews MD Work Phone: [facility] 02-06-2025 09:57-0400 Heart rate 72 /min Garrett Andrews MD Work Phone: [facility] 02-06-2025 09:57-0400 Respiratory rate 16 /min Garrett Andrews MD Work Phone: [facility] 09-20-2024 08:49-0500 Body mass index (BMI) [Ratio] 34.9 kg/m2 Tip Jones PRECISION FARMING SPECIALIST.METEOROLOGY TEACHER Work Phone: [facility] 09-20-2024 08:49-0500 Body weight 102.06 kg Tip Jones PRECISION FARMING SPECIALIST.METEOROLOGY TEACHER Work Phone: [facility] 09-20-2024 08:49-0500 Diastolic blood pressure 76 mm[Hg] Tip Jones PRECISION FARMING SPECIALIST.METEOROLOGY TEACHER Work Phone: [facility] 09-20-2024 08:49-0500 Heart rate 60 /min Tip Jones PRECISION FARMING SPECIALIST.METEOROLOGY TEACHER Work Phone: [facility] 09-20-2024 08:49-0500 Respiratory rate 14 /min Tip Jones PRECISION FARMING SPECIALIST.METEOROLOGY TEACHER Work Phone: [facility] 09-20-2024 08:49-0500 Systolic blood pressure 131 mm[Hg] Tip Jones PRECISION FARMING SPECIALIST.METEOROLOGY TEACHER Work Phone: [facility] 08-01-2024 10:08-0500 Diastolic blood pressure 74 mm[Hg] Garrett Andrews MD Work Phone: [facility] 08-01-2024 10:08-0500 Systolic blood pressure 128 mm[Hg] Garrett Andrews MD Work Phone: [facility] 08-01-2024 09:32-0500 Body mass index (BMI) [Ratio] 34.59 kg/m2 Garrett Andrews MD Work Phone: [facility] 08-01-2024 09:32-0500 Body weight 101.15 kg Garrett Andrews MD Work Phone: [facility] 08-01-2024 09:32-0500 Heart rate 64 /min Garrett Andrews MD Work Phone: [facility] 08-01-2024 09:32-0500 Respiratory rate 16 /min Garrett Andrews MD Work Phone: [facility] 01-25-2024 12:38-0400 Body height 171 cm Noemi Dickens PA-C Work Phone: [facility] 01-25-2024 12:38-0400 Body mass index (BMI) [Ratio] 33.54 kg/m2 Noemi Dickens PA-C Work Phone: [facility] 01-25-2024 12:38-0400 Body weight 98.07 kg Noemi Dickens PA-C Work Phone: [facility] 01-25-2024 12:38-0400 Diastolic blood pressure 78 mm[Hg] Noemi Dickens PA-C Work Phone: [facility] 01-25-2024 12:38-0400 Heart rate 66 /min Noemi Dickens PA-C Work Phone: [facility] 01-25-2024 12:38-0400 Respiratory rate 16 /min Noemi Dickens PA-C Work Phone: [facility] 01-25-2024 12:38-0400 SaO2% (BldA) [Mass fraction] 95 % Noemi Dickens PA-C Work Phone: [facility] 01-25-2024 12:38-0400 Systolic blood pressure 136 mm[Hg] Noemi Dickens PA-C Work Phone: [facility] 09-07-2023 11:28-0500 Diastolic blood pressure 80 mm[Hg] Lucia Huitron PRECISION FARMING SPECIALISTELENITA Work Phone: [facility] 09-07-2023 11:28-0500 Systolic blood pressure 132 mm[Hg] Lucia GuadalupeTomy PRECISION FARMING SPECIALIST.METEOROLOGY TEACHER Work Phone: [facility] 09-07-2023 11:17-0500 Body weight 96.62 kg Lucia Tomy PRECISION FARMING SPECIALIST.METEOROLOGY TEACHER Work Phone: [facility] 09-07-2023 11:17-0500 Heart rate 61 /min [facility] Tomy PRECISION FARMING SPECIALIST.METEOROLOGY TEACHER Work Phone: [facility] 09-07-2023 11:17-0500 Respiratory rate 18 /min Lucia Tomy PRECISION FARMING SPECIALIST.METEOROLOGY TEACHER Work Phone: [facility] 09-07-2023 11:17-0500 SaO2% (BldA) [Mass fraction] 97 % [facility] PRECISION FARMING SPECIALIST.METEOROLOGY TEACHER Work Phone: [facility] 09-02-2023 00:24-0500 Heart rate 75 /min [facility] 09-02-2023 00:24-0500 Respiratory rate 16 /min [facility] 09-02-2023 00:24-0500 SaO2% (BldA) [Mass fraction] 98 % [facility] 09-01-2023 23:32-0500 Body height 172.72 cm [facility] 09-01-2023 23:32-0500 Body mass index (BMI) [Ratio] 32.6 kg/m2 [facility] 09-01-2023 23:32-0500 Body temperature 97.9 [degF] [facility] 09-01-2023 23:32-0500 Body weight 97.4 kg [facility] 09-01-2023 23:32-0500 Diastolic blood pressure 92 mm[Hg] [facility] 09-01-2023 23:32-0500 Systolic blood pressure 150 mm[Hg] [facility] 08-09-2023 11:41-0500 Diastolic blood pressure 72 mm[Hg] Garrett Andrews MD Work Phone: [facility] 08-09-2023 11:41-0500 Systolic blood pressure 122 mm[Hg] Garrett Andrews MD Work Phone: [facility] 08-09-2023 11:25-0500 Body weight 97.07 kg Garrett Andrews MD Work Phone: [facility] 08-09-2023 11:25-0500 Heart rate 60 /min Garrett Andrews MD Work Phone: [facility] 08-09-2023 11:25-0500 Respiratory rate 16 /min Garrett Andrews MD Work Phone: [facility] 12-10-2022 11:54-0400 Body height 172.1 cm Garrett Andrews MD Work Phone: [facility] 12-10-2022 11:54-0400 Body weight 95.25 kg Garrett Andrews MD Work Phone: [facility] 12-10-2022 11:54-0400 Diastolic blood pressure 82 mm[Hg] Garrett Andrews MD Work Phone: [facility] 12-10-2022 11:54-0400 Heart rate 62 /min Garrett Andrews MD Work Phone: [facility] 12-10-2022 11:54-0400 Respiratory rate 14 /min Garrett Andrews MD Work Phone: [facility] 12-10-2022 11:54-0400 Systolic blood pressure 126 mm[Hg] Garrett Andrews MD Work Phone: [facility] 10-25-2022 11:12-0500 Body temperature 98.71 [degF] Shasha Bolden APRN.METEOROLOGY TEACHER Work Phone: [facility] 10-25-2022 11:12-0500 Body weight 96.16 kg Shasha Bolden APRN.METEOROLOGY TEACHER Work Phone: [facility] 10-25-2022 11:12-0500 Diastolic blood pressure 80 mm[Hg] Shasha Bolden APRN.METEOROLOGY TEACHER Work Phone: [facility] 10-25-2022 11:12-0500 Heart rate 62 /min Shasha Bolden APRN.METEOROLOGY TEACHER Work Phone: [facility] 10-25-2022 11:12-0500 Respiratory rate 16 /min Shasha Bolden PRECISION FARMING SPECIALIST.METEOROLOGY TEACHER Work Phone: [facility] 10-25-2022 11:12-0500 SaO2% (BldA) [Mass fraction] 99 % Shasha Bolden PRECISION FARMING SPECIALIST.METEOROLOGY TEACHER Work Phone: [facility] 10-25-2022 11:12-0500 Systolic blood pressure 138 mm[Hg] Shasha Bolden PRECISION FARMING SPECIALIST.METEOROLOGY TEACHER Work Phone: [facility] 05-28-2022 12:44-0400 Body weight 90.72 kg Garrett Andrews MD Work Phone: [facility] 05-28-2022 12:44-0400 Diastolic blood pressure 76 mm[Hg] Garrett Andrews MD Work Phone: [facility] 05-28-2022 12:44-0400 Heart rate 70 /min Garrett Andrews MD Work Phone: [facility] 05-28-2022 12:44-0400 Respiratory rate 16 /min Garrett Andrews MD Work Phone: [facility] 05-28-2022 12:44-0400 Systolic blood pressure 116 mm[Hg] Garrett Andrews MD Work Phone: [facility] 03-08-2022 11:03-0400 Body temperature 98.4 [degF] Alison Hu PRECISION FARMING SPECIALIST.METEOROLOGY TEACHER Work Phone: [facility] 03-08-2022 11:03-0400 Body weight 94.62 kg Alison Hu PRECISION FARMING SPECIALIST.METEOROLOGY TEACHER Work Phone: [facility] 03-08-2022 11:03-0400 Diastolic blood pressure 84 mm[Hg] Alison Hu PRECISION FARMING SPECIALIST.METEOROLOGY TEACHER Work Phone: [facility] 03-08-2022 11:03-0400 Heart rate 62 /min Alison Hu PRECISION FARMING SPECIALIST.METEOROLOGY TEACHER Work Phone: [facility] 03-08-2022 11:03-0400 Respiratory rate 22 /min Alison Hu PRECISION FARMING SPECIALIST.METEOROLOGY TEACHER Work Phone: [facility] 03-08-2022 11:03-0400 SaO2% (BldA) [Mass fraction] 98 % Alison Hu PRECISION FARMING SPECIALIST.METEOROLOGY TEACHER Work Phone: [facility] 03-08-2022 11:03-0400 Systolic blood pressure 136 mm[Hg] Alison Hu PRECISION FARMING SPECIALIST.METEOROLOGY TEACHER Work Phone: [facility] Encounters Encounter Date Encounter Type Care Provider Facility Start: 03-01-2025 End: 03-01-2025 Patient encounter procedure Indio Lowery [facility] Work Phone: Start: 03-01-2025 End: 03-01-[address] Garrett Andrews MD Work Phone: [facility] Work Phone: Start: 02-07-2025 End: 02-08-2025 Telephone encounter Garrett Andrews MD Work Phone: [facility] Comment on above: Results Start: 02-07-2025 End: 02-07-[address] Garrett Andrews MD Work Phone: [facility] Work Phone: Start: 02-07-2025 End: 02-07-[address] Garrett Andrews MD -Laboratory Work Phone: Start: 02-06-2025 Encounter for genera l adult medical examination without abnormal findings GARRETT ANDREWS [facility] Start: 02-06-2025 End: 02-06-2025 Patient encounter procedure Garrett Andrews MD Work Phone: [facility] Comment on above: Well adult exam (Ary karissa Dx); Type 2 diabetes mellitus without complication, without long-term current use of insulin (HCC); Essential hypertension; Dyslipidemia; Mild concentric left ventricular hypertrophy (LVH); Left ventricular diastolic dysfunction with preserved systolic function; DESIRE (generalized anxiety disorder); Foot callus; Screening for depression; Right wrist pain; Numbness and tingling in right hand Start: 02-06-2025 End: 02-06-2025 Patient encounter status Garrett Andrews MD Work Phone: [facility] Start: 02-06-2025 End: 02-07-2025 ambulatory GARRETT ANDREWS Facility:[facility] Start: 02-03-2025 End: 02-04-2025 Refill Garrett Andrews MD Work Phone: [facility] Comment on above: Refill Request Start: 01-06-2025 End: 01-07-2025 Refill Garrett Andrews MD Work Phone: [facility] [place] Comment on above: Refill Request Start: 12-30-2024 End: 12-31-2024 ambulatory Garrett Andrews MD Work Phone: [facility] [place] Comment on above: REFILE Start: 10-31-2024 End: 11-01-2024 ambulatory Garrett Andrews MD Work Phone: [facility] [place] Comment on above: Handicap tag Start: 10-31-2024 End: 10-31-2024 Nursing evaluation of patient and report Mi Nurse Work Phone: [facility] [place] Comment on above: Encounter for immuni zation (Primary Dx) Start: 09-24-2024 End: 09-24-2024 Telephone encounter Tip Jones APRN.METEOROLOGY TEACHER Work Phone: [facility] [place] Comment on above: Results Start: 09-20-2024 End: 09-20-2024 Telephone encounter Garrett Andrews MD Work Phone: Family Medicine [place] Start: 09-20-2024 End: 09-20-2024 Subsequent hospital visit by physician Jose Enrique [facility] [place] Work Phone: Radiology Comment on above: Right hand pain [[id number] .641] Start: 09-20-2024 End: 09-20-2024 Patient encounter procedure Tip Jones APRN.METEOROLOGY TEACHER Work Phone: [facility] [place] Comment on above: Right hand pain (Ary karissa Dx); Right hand weakness Start: 09-20-2024 End: 09-20-2024 ambulatory GARRETT ANDREWS Facility:[facility] Start: 08-02-2024 End: 08-02-2024 Telephone encounter Noemi Dickens PA-C Work Phone: [facility] [place] Comment on above: Results Start: 08-01-2024 End: 08-01-2024 ambulatory GARRETT ANDREWS Facility:[facility] Start: 08-01-2024 End: 08-01-2024 Patient encounter procedure Garrett Andrews MD Work Phone: [facility] [place] Comment on above: Type 2 diabetes cris itus without complication, without long- term current use of insulin (HCC) (Primary Dx); Essential hypertension; Dyslipidemia; Mild concentric left ventricular hypertrophy (LVH); Left ventricular diastolic dysfunction with preserved systolic function; DESIRE (generalized anxiety disorder); Encounter for immunization; Need for vaccination; Prostate cancer screening; Medication management Start: 07-08-2024 End: 07-09-2024 Get Medical Advice Garrett Andrews MD Work Phone: [facility] [place] Comment on above: Refills Start: 05-04-2024 End: 05-04-2024 ambulatory GARRETT ANDREWS Facility:[facility] Start: 05-04-2024 End: 05-04-2024 Patient encounter procedure Ancelmo Fuentes OD Work Phone: Ophthalmology Comment on above: Central retinal aleisha ry occlusion, left eye (Primary Dx); Type 2 diabetes mellitus without complication, without long-term current use of insulin (HCC); 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; Hypertensive retinopathy, bilateral; Nuclear sclerosis of both eyes Start: 05-02-2024 ambulatory Garrett perez MD Work Phone: [facility] [place] Comment on above: Lisinopril Start: 01-26-2024 Telephone encounter Noemi dash PA-C Work Phone: [facility] [place] Comment on above: Results Start: 01-25-2024 End: 01-25-2024 Patient encounter procedure Noemi Dickens PA-C Work Phone: [facility] [place] Comment on above: Well adult exam ([facility] karissa Dx); Type 2 diabetes mellitus without complication, without long-term current use of insulin (HCC); Essential hypertension; Dyslipidemia; DESIRE (generalized anxiety disorder); ED (erectile dysfunction) of organic origin; Ex-smoker; Screening for colon cancer; Seborrheic dermatitis of scalp Start: 01-25-2024 End: 01-25-2024 Patient encounter status Noemi Dickens PA-C Work Phone: [facility] Work Phone: Start: 01-08-2024 Refill Garrett perez MD Work Phone: [facility] [place] Comment on above: Refill Request Start: 09-07-2023 End: 09-07-2023 Patient encounter procedure Lucai Huitron APRN.CNP Work Phone: Internal Medicine [place] Comment on above: Muscle strain of lef t upper back, subsequent encounter (Primary Dx) Start: 09-03-2023 Get Medical Advice Garrett Andrews MD Work Phone: [facility] Comment on above: Refill ER medication Start: 09-02-2023 Chart abstracting Garrett atwood MD Work Phone: Internal Medicine [place] Comment on above: ext document (ER Not e) Start: 09-01-2023 End: 09-02-2023 Emergency department patient visit [facility] Work Phone: Start: 08-10-2023 Telephone encounter Garrett Andrews MD Work Phone: [facility] Comment on above: Results Start: 08-09-2023 End: 08-09-2023 Patient encounter procedure Garrett Andrews MD Work Phone: [facility] Comment on above: Type 2 diabetes cris itus without complication, without long- term current use of insulin (HCC) (Primary Dx); Essential hypertension; Dyslipidemia; Mild concentric left ventricular hypertrophy (LVH); DESIRE (generalized anxiety disorder); Encounter for immunization; Prostate cancer screening Start: 07-08-2023 Refill Garrett perez MD Work Phone: Family Medicine [place] Comment on above: Refill Request Start: 05-15-2023 Refill Garrett perez MD Work Phone: [facility] [place] Comment on above: Refill Request Start: 02-01-2023 ambulatory Garrett perez MD Work Phone: [facility] [place] Comment on above: Dandruff Start: 12-29-2022 Telephone encounter Garrett Andrews MD Work Phone: [facility] [place] Comment on above: Orders Start: 12-20-2022 Telephone encounter Garrett Andrews MD Work Phone: [facility] [place] Comment on above: Results Start: 12-13-2022 End: 12-13-2022 Patient encounter procedure Ancelmo Fuentes OD Work Phone: Ophthalmology Comment on above: Central retinal aleisha ry occlusion, left eye (Primary Dx); Type 2 diabetes mellitus without retinopathy (HCC); 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; Hypertensive retinopathy, bilateral; Nuclear sclerosis of both eyes Start: 12-10-2022 Refill Tip ramirez APRN.METEOROLOGY TEACHER Work Phone: [facility] [place] Comment on above: Refill Request Start: 12-10-2022 End: 12-10-2022 Patient encounter procedure Garrett Andrews MD Work Phone: [facility] [place] Comment on above: Well adult exam ([facility] Dx); Essential hypertension; Type 2 diabetes mellitus without complication, without long-term current use of insulin (HCC); Dyslipidemia; Left ventricular diastolic dysfunction with preserved systolic function; Mild concentric left ventricular hypertrophy (LVH); DESIRE (generalized anxiety disorder); Screening for colon cancer; Encounter for immunization Start: 12-10-2022 End: 12-10-2022 Patient encounter status Garrett Andrews MD Work Phone: [facility] Work Phone: Start: 10-25-2022 End: 10-25-2022 Patient encounter procedure Shasha Bolden APRN.METEOROLOGY TEACHER Work Phone: [facility] Comment on above: Dry skin dermatitis (Primary Dx); Impacted cerumen of left ear Start: 10-01-2022 Telephone encounter Garrett Andrews MD Work Phone: [facility] [place] Comment on above: Patient Question Start: 09-21-2022 ambulatory Garrett perez MD Work Phone: [facility] [place] Comment on above: Ibuprofen 800 mg Start: 09-13-2022 ambulatory Garrett perez MD Work Phone: [facility] [place] Comment on above: Metoprolol 200mg Start: 09-05-2022 Refill Noemi Morriston on PA-C Work Phone: [facility] [place] Comment [place] above: Refill Request Start: 06-01-2022 Telephone encounter Garrett Andrews MD Work Phone: [facility] [place] Comment [place] above: Results Start: 05-28-2022 End: 05-28-2022 Patient encounter procedure Garrett Andrews MD Work Phone: [facility] [place] Comment on above: Type 2 diabetes cris itus without complication, without long- term current use of insulin (HCC) (Primary Dx); Essential hypertension; Dyslipidemia; DESIRE (generalized anxiety disorder); Left ventricular diastolic dysfunction with preserved systolic function; Prostate cancer screening Start: 05-16-2022 Refill Noemi Morriston on PA-C Work Phone: [facility] [place] Comment on above: Refill Request Start: 03-08-2022 ambulatory Garrett perez MD Work Phone: [facility] [place] Comment on above: Nasal Congestion; Fa tigue; questionable fever Start: 03-08-2022 End: 03-08-2022 Patient encounter procedure Alison Hu APRN.METEOROLOGY TEACHER Work Phone: [facility] Comment on above: URI, acute (Primary Dx) Start: 02-17-2022 ambulatory Garrett perez MD Work Phone: [facility] [place] Comment on above: Refile Start: 02-17-2022 Refill Kajal Vetovit z PA-C Work Phone: Orthopaedics Comment on above: Refill Request Start: 01-12-2022 Telephone encounter Garrett Andrews MD Work Phone: Family Medicine [place] Comment on above: Patient Question Start: 11-25-2021 Patient encounter status Garrett Andrews MD Work Phone: [facility] Work Phone: Procedures Date Procedure Procedure Detail Performing Clinician Start: 02-07-2025 Assay of prostate sp ecific antigen total Dr. Garrett Andrews MD Work Phone: Comment on above: This test was perfor med using the [employer] tPSA method. Measured values of a patient sample can vary depending on the testing procedure used. PSA values determined on patient samples by different testing procedures cannot be used interchangeably. If there is a change in PSA assays while monitoring therapy, sequential testing should be performed to confirm baseline values. Start: 02-07-2025 Urnls dip stick/tabl et reagent auto microscopy Dr. Garrett Andrews MD Work Phone: Start: 02-06-2025 Adult depression scr eening assessment Garrett Andrews MD Work Phone: Start: 01-25-2024 Adult depression scr eening assessment Garrett Andrews MD Work Phone: Start: 08-09-2023 INFLUENZA VACCINE, A GE 6 MO - 64 YR, QUADRIVALENT (AFLURIA, FLULAVAL, FLUZONE) Garrett Andrews MD Work Phone: Start: 12-13-2022 Computerized ophthal [place] imaging optic nerve Ancelmo Fuentes OD Work Phone: Plan of Treatment Date Care Activity Detail Author Start: 2035 RSV Vaccine (1 - 1-dose 75+ series) RSV Vaccine (1 - 1-dose 75+ series) [facility] Start: 01-24-2029 Prostate specific antigen measurement Prostate Cancer Screening Discussion [facility] Start: 12-11-2027 PROSTATE CANCER SCREENING DISCUSSION PROSTATE CANCER SCREENING DISCUSSION [facility] Start: 12-11-2027 Prostate specific antigen measurement Prostate Cancer Screening Discussion [facility] Start: 06-10-2027 Urine microalbumin profile [facility] Start: 11-25-2026 PROSTATE CANCER SCREENING DISCUSSION PROSTATE CANCER SCREENING DISCUSSION [facility] Start: 02-06-2026 Annual PCP Team Chronic Disease Visit Annual PCP Team Chronic Disease Visit [facility] Start: 02-06-2026 BP Controlled (<130/80) BP Controlled (<130/80) [facility] Start: 02-06-2026 Depression Screening Depression Screening [facility] Start: 02-06-2026 Diabetic foot examination Diabetic Foot Exam [facility] Start: 09-20-2025 Annual PCP Team Chronic Disease Visit Annual PCP Team Chronic Disease Visit [facility] Start: 08-14-2025 End: 08-14-2025 Patient encounter procedure 08/14/2025 1:00 PM EST Office Visit Family [facility] [address] [place] [address] Noemi Dickens PA-C [address] [facility] [place] [address] 6 month follow up Family [facility] [place] Comment on above: 6 month follow up Start: 08-01-2025 Annual PCP Team Chronic Disease Visit Annual PCP Team Chronic Disease Visit [facility] Start: 08-01-2025 BP Controlled (<130/80) BP Controlled (<130/80) [facility] Start: 08-01-2025 Hepatitis B surface antibody level LDL Cholesterol [facility] Start: 05-04-2025 Glaucoma screening Dilated Retinal Exam [facility] Start: 02-13-2025 End: 02-13-2025 Patient encounter procedure 02/13/2025 2:30 PM EDT Office Visit Family [facility] [address] [place] [address] Haja Bliss V, DO [address] [facility] [place] [address] Dx: Right wrist pain [M25.531]; Numbness and tingling in right hand [R20.0, R20.2] Family [facility] Comment on above: Dx: Right wrist pain [M25.531]; Numbness and tingling in right hand [R20.0, R20.2] Start: 02-06-2025 End: 02-06-2025 Patient encounter procedure [facility] [place] Comment on above: Physical Start: 01-29-2025 Hemoglobin A1c measurement HbA1C [facility] Start: 01-24-2025 Annual PCP Team Chronic Disease Visit Annual PCP Team Chronic Disease Visit [facility] Start: 01-24-2025 Depression Screening Depression Screening [facility] Start: 01-24-2025 Diabetic foot examination Diabetic Foot Exam [facility] Start: 01-24-2025 Hepatitis B screening Urine Albumin:Creatinine Ratio [facility] Start: 01-24-2025 Hepatitis B surface antibody level LDL Cholesterol [facility] Start: 01-18-2025 End: 04-19-2025 CBC W Auto Differential panel - Blood COMPLETE BLOOD COUNT AND DIFFERENTIAL Lab Routine Type 2 diabetes mellitus without complication, without long-term current use of insulin (HCC) Expected: 01/18/2025, Expires: 04/19/2025 [facility] Comment on above: Expected: 01/18/2025, Expires: Start: 01-18-2025 End: 04-19-2025 Comprehensive metabolic 2000 panel - Serum or Plasma COMPREHENSIVE METABOLIC PANEL Lab Routine Type 2 diabetes mellitus without complication, without long-term current use of insulin (HCC) Essential hypertension Dyslipidemia Expected: 01/18/2025, Expires: 04/19/2025 [facility] Comment on above: Expected: 01/18/2025, Expires: Start: 01-18-2025 End: 04-19-2025 Hemoglobin A1c in Blood HEMOGLOBIN A1C Lab Routine Type 2 diabetes mellitus without complication, without long-term current use of insulin (HCC) Expected: 01/18/2025, Expires: 04/19/2025 [facility] Comment on above: Expected: 01/18/2025, Expires: Start: 01-18-2025 End: 04-19-2025 LIPID PANEL, NONFASTING LIPID PANEL, NONFASTING Lab Routine Type 2 diabetes mellitus without complication, without long-term current use of insulin (HCC) Essential hypertension Dyslipidemia Expected: 01/18/2025, Expires: 04/19/2025 [facility] Comment on above: Expected: 01/18/2025, Expires: Start: 01-18-2025 End: 04-19-2025 Microalbumin/Creatinine [Mass Ratio] in Urine ALBUMIN/CREATININE RATIO, URINE Lab Routine Type 2 diabetes mellitus without complication, without long-term current use of insulin (HCC) Expected: 01/18/2025, Expires: 04/19/2025 [facility] Comment on above: Expected: 01/18/2025, Expires: Start: 01-18-2025 End: 04-19-2025 Prostate specific Ag [Mass/volume] in Serum or Plasma PROSTATE-SPECIFIC ANTIGEN DIAGNOSTIC Lab Routine Prostate cancer screening Expected: 01/18/2025, Expires: 04/19/2025 [facility] Comment on above: Expected: 01/18/2025, Expires: Start: 01-18-2025 End: 04-19-2025 Thyrotropin [Units/volume] in Serum or Plasma THYROID STIMULATING HORMONE Lab Routine DESIRE (generalized anxiety disorder) Medication management Expected: 01/18/2025, Expires: 04/19/2025 [facility] Comment on above: Expected: 01/18/2025, Expires: Start: 01-18-2025 End: 04-19-2025 Urinalysis complete panel - Urine URINALYSIS, WITH MICROSCOPIC Lab Routine Type 2 diabetes mellitus without complication, without long-term current use of insulin (HCC) Essential hypertension Dyslipidemia Expected: 01/18/2025, Expires: 04/19/2025 [facility] Comment on above: Expected: 01/18/2025, Expires: Start: 10-31-2024 End: 10-31-2024 Nursing evaluation of patient and report 10/31/2024 10:00 AM EST Nurse Visit Family [facility] [address] [place] [address] Nurse, Mo [address] [place] [address] Shingrix #2 [facility] [place] Comment on above: Shingrix #2 Start: 09-30-2024 Hzv zoster vacc recombinant adjuvanted im njx ZOSTER VACCINE, RECOMBINANT (SHINGRIX) Immunization/Injection Routine Need for vaccination Expected: 09/30/2024 (Approximate) [facility] Work Phone: Comment on above: Expected: 09/30/2024 (Approximate) Start: 09-26-2024 Shingrix Vaccine (2 of 2) Shingrix Vaccine (2 of 2) [facility] Start: 09-07-2024 Annual PCP Team Chronic Disease Visit Annual PCP Team Chronic Disease Visit [facility] Start: 08-09-2024 Annual PCP Team Chronic Disease Visit Annual PCP Team Chronic Disease Visit [facility] Start: 08-09-2024 BP Controlled (<130/80) BP Controlled (<130/80) [facility] Start: 08-09-2024 Hepatitis B surface antibody level LDL Cholesterol [facility] Start: 08-01-2024 End: 08-01-2024 Patient encounter procedure 08/01/2024 9:40 AM EST Office Visit Family [facility] Mercado [address] [place] [address] Garrett Andrews MD [address] [place] [address] 6 mo follow up [facility] Comment on above: 6 mo follow up Start: 07-27-2024 End: 10-26-2024 Hemoglobin A1c in Blood HEMOGLOBIN A1C Lab Routine Type 2 diabetes mellitus without complication, without long-term current use of insulin (HCC) Expected: 07/27/2024, Expires: 10/26/2024 [facility] Work Phone: Comment on above: Expected: 07/27/2024, Expires: Start: 07-27-2024 Hemoglobin A1c measurement HbA1C [facility] Start: 07-27-2024 End: 10-26-2024 LIPID PANEL, NONFASTING LIPID PANEL, NONFASTING Lab Routine Dyslipidemia Expected: 07/27/2024, Expires: 10/26/2024 [facility] Comment on above: Expected: 07/27/2024, Expires: 5 Start: 05-27-2024 Influenza vaccination Influenza Vaccine (#1) [facility] Start: 05-04-2024 End: 05-04-2024 Patient encounter procedure 05/04/2024 10:00 AM EDT Office Visit [facility] [address] [place], [place] [id number] Ancelmo Fuentes, OD [address] [place] [address] Just my yearly eye checkup. Ophthalmology Comment on above: Just my yearly eye checkup. Start: 02-21-2024 End: 02-21-2024 Patient encounter procedure 02/21/2024 11:00 AM EDT Office Visit [facility] [address] [place] [address] Marielena Vazquez, OD [address] [place] [address] Type 2 diabetes mellitus without complication, without long-term current use of insulin (HCC) [E11.9] Ophthalmology Comment on above: Type 2 diabetes mellitus without complic ation, without long-term current use of insulin (HCC) [E11.9] Start: 02-07-2024 Hemoglobin A1c measurement HbA1C [facility] Start: 02-07-2024 Hemoglobin A1c/Hemoglobin.total in Blood HbA1C [facility] Start: 01-27-2024 End: 04-27-2024 ALBUMIN/CREAT RATIO RND UR ALBUMIN/CREAT RATIO RND UR Lab Routine Type 2 diabetes mellitus without complication, without long-term current use of insulin (HCC) Expected: 01/27/2024, Expires: 04/27/2024 [facility] Work Phone: Comment on above: Expected: 01/27/2024, Expires: 4 Start: 01-27-2024 End: 04-27-2024 CBC W Auto Differential panel - Blood CBC + DIFF Lab Routine Type 2 diabetes mellitus without complication, without long-term current use of insulin (HCC) Expected: 01/27/2024, Expires: 04/27/2024 [facility] Work Phone: Comment on above: Expected: 01/27/2024, Expires: 4 Start: 01-27-2024 End: 04-27-2024 Comprehensive metabolic 2000 panel - Serum or Plasma COMP METABOLIC PANEL Lab Routine Type 2 diabetes mellitus without complication, without long-term current use of insulin (HCC) Essential hypertension Dyslipidemia Expected: 01/27/2024, Expires: 04/27/2024 [facility] Work Phone: Comment on above: Expected: 01/27/2024, Expires: Start: 01-27-2024 End: 04-27-2024 Hemoglobin A1c in Blood HGB A1C Lab Routine Type 2 diabetes mellitus without complication, without long-term current use of insulin (HCC) Expected: 01/27/2024, Expires: 04/27/2024 [facility] Work Phone: Comment on above: Expected: 01/27/2024, Expires: Start: 01-27-2024 End: 04-27-2024 LIPID PANEL, NONFASTING LIPID PANEL, NONFASTING Lab Routine Type 2 diabetes mellitus without complication, without long-term current use of insulin (HCC) Essential hypertension Dyslipidemia Expected: 01/27/2024, Expires: 04/27/2024 [facility] Work Phone: Comment on above: Expected: 01/27/2024, Expires: 4 Start: 01-27-2024 End: 04-27-2024 Prostate specific Ag [Mass/volume] in Serum or Plasma PSA/PROSTSPECAG DIAG Lab Routine Prostate cancer screening Expected: 01/27/2024, Expires: 04/27/2024 [facility] Work Phone: Comment on above: Expected: 01/27/2024, Expires: Start: 01-27-2024 End: 04-27-2024 Urinalysis complete panel - Urine URINALYSIS, WITH MICROSCOPIC Lab Routine Type 2 diabetes mellitus without complication, without long-term current use of insulin (HCC) Essential hypertension Dyslipidemia Expected: 01/27/2024, Expires: 04/27/2024 [facility] Work Phone: Comment on above: Expected: 01/27/2024, Expires: 4 Start: 01-18-2024 Hepatitis B screening URINE ALBUMIN:CREATININE RATIO [facility] Start: 12-14-2023 Glaucoma screening Dilated Retinal Exam [facility] Start: 12-14-2023 Hepatitis C antibody, confirmatory test DILATED RETINAL EXAM [facility] Start: 12-11-2023 3 comp foot exam completed DIABETIC FOOT EXAM [facility] Start: 12-11-2023 ANNUAL PCP TEAM CHRONIC DISEASE VISIT ANNUAL PCP TEAM CHRONIC DISEASE VISIT [facility] Start: 12-11-2023 BP CONTROLLED (<130/80) BP CONTROLLED (<130/80) [facility] in Start: 12-11-2023 COVID-19 VACCINE (#1) COVID-19 VACCINE (#1) [facility] Comment on above: Postponed from 05/06/1961 (Declined at t his time) Start: 12-11-2023 Diabetic foot examination Diabetic Foot Exam [facility] Start: 12-11-2023 Hepatitis B surface antibody level LDL CHOLESTEROL [facility] Start: 12-11-2023 SHINGRIX VACCINE (1 of 2) SHINGRIX VACCINE (1 of 2) [facility] Comment on above: Postponed from 2010 (Insurance Cov erage) Start: 09-26-2023 Behavioral Health Screening Behavioral Health Screening [facility] Start: 09-01-2023 [facility] Start: 06-12-2023 Hemoglobin A1c/Hemoglobin.total in Blood HBA1C [facility] Start: 06-01-2023 Hepatitis B surface antibody level LDL CHOLESTEROL [facility] Start: 05-28-2023 ANNUAL PCP TEAM CHRONIC DISEASE VISIT ANNUAL PCP TEAM CHRONIC DISEASE VISIT [facility] Start: 05-28-2023 BP CONTROLLED (<130/80) BP CONTROLLED (<130/80) [facility] Start: 05-27-2023 Covid-19 Vaccine () Covid-19 Vaccine () [facility] Start: 05-27-2023 Influenza vaccination [facility] Start: 11-29-2022 Hemoglobin A1c/Hemoglobin.total in Blood HBA1C [facility] Start: 11-25-2022 3 comp foot exam completed DIABETIC FOOT EXAM [facility] Start: 11-25-2022 ANNUAL PCP TEAM CHRONIC DISEASE VISIT ANNUAL PCP TEAM CHRONIC DISEASE VISIT [facility] Start: 11-25-2022 BP CONTROLLED (<130/80) BP CONTROLLED (<130/80) [facility] in Start: 11-25-2022 COLORECTAL CANCER SCREENING COLORECTAL CANCER SCREENING [facility] Comment on above: Postponed from 2005 (Declined at t his time) Start: 11-25-2022 COVID-19 VACCINE (#1) COVID-19 VACCINE (#1) [facility] Comment on above: Postponed from 1965 (Declined at t his time) Postponed from 05/06 (Declined at this time) Start: 11-25-2022 COVID-19 VACCINE (1) COVID-19 VACCINE (1) [facility] Comment on above: Postponed from 1965 (Declined at t his time) Start: 11-25-2022 Hepatitis B screening URINE ALBUMIN:CREATININE RATIO [facility] Start: 11-25-2022 Hepatitis B surface antibody level LDL CHOLESTEROL [facility] [facility] Start: 11-25-2022 SHINGRIX VACCINE (1 of 2) SHINGRIX VACCINE (1 of 2) [facility] Comment on above: Postponed from 2010 (Declined at t his time) Start: 11-12-2022 End: 01-12-2023 ALBUMIN/CREAT RATIO RND UR ALBUMIN/CREAT RATIO RND UR Lab Routine Type 2 diabetes mellitus without complication, without long-term current use of insulin (HCC) Expected: 11/12/2022, Expires: 01/12/2023 [facility] Work Phone: Comment on above: Expected: 11/12/2022, Expires: 3 Start: 11-12-2022 End: 01-12-2023 CBC W Auto Differential panel - Blood CBC + DIFF Lab Routine Type 2 diabetes mellitus without complication, without long-term current use of insulin (HCC) Expected: 11/12/2022, Expires: 01/12/2023 [facility] Work Phone: Comment on above: Expected: 11/12/2022, Expires: 3 Start: 11-12-2022 End: 01-12-2023 Comprehensive metabolic 2000 panel - Serum or Plasma COMP METABOLIC PANEL Lab Routine Essential hypertension Dyslipidemia Type 2 diabetes mellitus without complication, without long-term current use of insulin (HCC) Expected: 11/12/2022, Expires: 01/12/2023 [facility] Work Phone: Comment on above: Expected: 11/12/2022, Expires: 3 Start: 11-12-2022 End: 01-12-2023 Hemoglobin A1c in Blood HGB A1C Lab Routine Type 2 diabetes mellitus without complication, without long-term current use of insulin (HCC) Expected: 11/12/2022, Expires: 01/12/2023 [facility] Work Phone: Comment on above: Expected: 11/12/2022, Expires: 3 Start: 11-12-2022 End: 01-12-2023 LIPID PANEL, NONFASTING LIPID PANEL, NONFASTING Lab Routine Dyslipidemia Expected: 11/12/2022, Expires: 01/12/2023 [facility] Work Phone: Comment on above: Expected: 11/12/2022, Expires: 3 Start: 11-12-2022 End: 01-12-2023 Prostate specific Ag [Mass/volume] in Serum or Plasma PSA/PROSTSPECAG DIAG Lab Routine Prostate cancer screening Expected: 11/12/2022, Expires: 01/12/2023 [facility] Work Phone: Comment on above: Expected: 11/12/2022, Expires: 3 Start: 11-12-2022 End: 01-12-2023 Urinalysis complete panel - Urine URINALYSIS, WITH MICROSCOPIC Lab Routine Essential hypertension Dyslipidemia Type 2 diabetes mellitus without complication, without long-term current use of insulin (HCC) Expected: 11/12/2022, Expires: 01/12/2023 [facility] Work Phone: Comment on above: Expected: 11/12/2022, Expires: 3 Start: 09-26-2022 DEPRESSION ASSESSMENT DEPRESSION ASSESSMENT [facility] Start: 05-28-2022 End: 07-28-2022 Hemoglobin A1c in Blood HGB A1C Lab Routine Type 2 diabetes mellitus without complication, without long-term current use of insulin (HCC) Expected: 05/28/2022, Expires: 07/28/2022 [facility] Work Phone: Comment on above: Expected: 05/28/2022, Expires: 2 Start: 05-28-2022 Hemoglobin A1c/Hemoglobin.total in Blood HBA1C [facility] Start: 05-28-2022 End: 07-28-2022 LIPID PANEL, NONFASTING LIPID PANEL, NONFASTING Lab Routine Essential hypertension Dyslipidemia Type 2 diabetes mellitus without complication, without long-term current use of insulin (HCC) Expected: 05/28/2022, Expires: 07/28/2022 [facility] Work Phone: Comment on above: Expected: 05/28/2022, Expires: 2 Start: 05-27-2022 Influenza vaccination INFLUENZA (#1) [facility] Start: 03-08-2022 End: 03-22-2022 Influenza virus A and B RNA and SARS-CoV-2 (COVID-19) N gene panel - Respiratory specimen by MARLY with probe detection [facility] Work Phone: Comment on above: Expected: 03/08/2022, Expires: 2 Start: 11-14-2021 BP CONTROLLED (<130/80) BP CONTROLLED (<130/80) [facility] Start: 09-26-2021 DEPRESSION ASSESSMENT DEPRESSION ASSESSMENT [facility] Start: 2020 Hepatitis B Vaccine (1 of 3 - Risk 3-dose series) Hepatitis B Vaccine (1 of 3 - Risk 3-dose series) [facility] Start: 2020 RSV Vaccine (1 - 1-dose 60+ series) RSV Vaccine (1 - 1-dose 60+ series) [facility] Start: 02-09-2020 Hepatitis C antibody, confirmatory test DILATED RETINAL EXAM [facility] Start: 05-16-2016 PNEUMOCOCCAL (2 - PCV) PNEUMOCOCCAL (2 - PCV) [facility] Start: 2010 Shingrix Vaccine (1 of 2) Shingrix Vaccine (1 of 2) [facility] Start: 2005 COLOGUARD (FIT-DNA) COLOGUARD (FIT-DNA) [facility] Start: 2005 Colonoscopy COLONOSCOPY [facility] Start: 2005 COLORECTAL CANCER SCREENING COLORECTAL CANCER SCREENING [facility] Start: [address] COLONOGRAPHY [facility] Start: 2005 FECAL OCCULT BLOOD FECAL OCCULT BLOOD [facility] Start: 2005 Screening for malignant neoplasm of colon [facility] Start: 2005 SIGMOIDOSCOPY SIGMOIDOSCOPY [facility] Start: 1966 PNEUMOCOCCAL (1 - PCV) PNEUMOCOCCAL (1 - PCV) [facility] ic Hemoglobin.gastroint zechariah nal.lower [Presence] in Stool by Immunoassay FECAL OCCULT BLOOD TEST Lab Routine Screening for colon cancer Ordered: 12/10/2022 [facility] Work Phone: Comment on above: Ordered: 12/10/2022 Patient Education ED Back Sprain/Strain W [facility] Work Phone: Patient referral [facility] Work Phone: Removal impacted cer umen instrumentation unilat REMOVAL OF IMPACTED CERUMEN - INSTRUMENTATION Procedures Routine Ordered: 10/25/2022 [facility] Work Phone: Comment on above: Ordered: 10/25/2022 End: 10-20-2025 XR Wrist - right PA and Lateral and Oblique XR WRIST GENERAL 3V PA/LAT/OBL RIGHT Radiology Routine Right hand pain Right hand weakness 1 Occurrences starting 09/20/2024 until 10/20/2025 [facility] Work Phone: Comment on above: 1 Occurrences starting 09/20/2024 until 10/20/2025 XR Wrist - right PA and Lateral and Oblique XR WRIST GENERAL 3V PA/LAT/OBL RIGHT Radiology Routine Right hand pain Right hand weakness 09/20/2024 9:20 AM EST [facility] Immunizations Immunization Date Immunization Notes Care Provider Fa cility 10-31-2024 zoster vaccine recombinant Mi Nurse Work Phone: [facility] 08-01-2024 influenza, seasonal, injectable Garrett Andrews MD Work Phone: [facility] 08-01-2024 zoster vaccine recombinant Garrett Andrews MD Work Phone: [facility] 08-09-2023 influenza, injectabl e, quadrivalent, contains preservative Garrett Andrews MD Work Phone: [facility] 08-09-2023 influenza virus vacc ine, unspecified formulation Garrett Andrews MD Work Phone: [facility] 12-10-2022 pneumococcal (PCV20) vaccine, 20 valent (PREVNAR 20) Tip Jones APRN.CNP Work Phone: [facility] 12-10-2022 pneumococcal Conjuga te, unspecified formulation Garrett Andrews MD Work Phone: [facility] Work Phone: 08-10-2022 influenza virus vacc ine, unspecified formulation Garrett Andrews MD Work Phone: [facility] 07-05-2020 influenza, injectabl e, quadrivalent, contains preservative Garrett Andrews MD Work Phone: [facility] 06-03-2019 influenza, seasonal, injectable Garrett Andrews MD Work Phone: [facility] 06-24-2018 influenza, injectabl e, quadrivalent, contains preservative Garrett Andrews MD Work Phone: [facility] 07-06-2017 influenza, injectabl e, quadrivalent, contains preservative Garrett Andrews MD Work Phone: [facility] Work Phone: 06-10-2017 tetanus toxoid, redu alexander diphtheria toxoid, and acellular pertussis vaccine, adsorbed Garrett Andrews MD Work Phone: [facility] 06-19-2016 influenza, injectabl e, quadrivalent, contains preservative Garrett Andrews MD Work Phone: [facility] 06-28-2015 influenza, injectabl e, quadrivalent, contains preservative Garrett Andrews MD Work Phone: [facility] 05-16-2015 pneumococcal conjuga te vaccine, 13 valent Garrett Andrews MD Work Phone: [facility] Work Phone: 05-16-2015 pneumococcal polysaccharide vaccine, 23 valent Garrett Andrews MD Work Phone: [facility] Work Phone: 07-03-2014 influenza, seasonal, injectable Garrett Andrews MD Work Phone: [facility] Payers Date Payer Category Payer Self-pay [id number] 2024 [facility] JASON RODRIGEUZ O FRANCO [id number] 2022 Unknown [id number] 2020 Unknown JASON ROMO PPO [id number] 2020-Present [id number] [place] [id number] [id number] 2020 Unknown [id number] 2016 Private Health Insurance [facility] [id number] Unknown [id number] Unknown [id number] Social History Date Type Detail Facility Start: 03-11-2020 End: 08-01-2024 Tobacco smoking status NHIS Ex-smoker [facility] Work Phone: Start: 09-26-2004 End: 09-26-2019 History of tobacco use Current smoker [facility] Work Phone: Start: 09-26-2004 End: 09-26-2019 History of tobacco use Cigarette Smoker [facility] Work Phone: Start: 03-11-2020 End: 08-09-2023 Cigarettes smoked current (pack per day) - Reported 0.5 [facility] Start: 03-11-2020 End: 08-01-2024 Tobacco use and exposure Smokeless tobacco non-user [facility] Work Phone: Start: 11-25-2021 End: 02-06-2025 Alcohol intake Current drinker of alcohol (finding) [facility] Start: 11-12-2020 History SDOH Alcohol Frequency 1 [facility] Start: 11-12-2020 History SDOH Social Connections Phone 5 [facility] Start: 11-12-2020 History SDOH Social Connections Membership 2 [facility] Start: 11-12-2020 History SDOH Social Connections Living 3 [facility] Start: 11-12-2020 History SDOH Physical Activity MPS 6 [facility] Start: 11-12-2020 Education 12 [facility] Start: 1960 Sex Assigned At Male [facility] Start: 02-26-2022 End: 05-28-2022 Exposure to SARS-CoV-2 (event) Not sure [facility] Work Phone: Start: 11-12-2020 End: 08-09-2023 Social connection and isolation panel [facility] Do you belong to any clubs or organizations such as mu-ism groups, unions, fraternal or athletic groups, or school groups? No [facility] Are you now , , , , never or living with a partner? [facility] How often to you hav e a drink containing alcohol? Never [facility] How many standard dr inks containing alcohol do you have on a typical day? 1 or 2 [facility] How hard is it for y ou to pay for the very basics like food, housing, medical care, and heating Not hard at all [facility] Do you feel stress - tense, restless, nervous, or anxious, or unable to sleep at night because your mind is troubled all the time - these days [OSQ] Not at all [facility] (I/We) worried wheth er (my/our) food would run out before (I/we) got money to buy more. Never true [facility] Start: 02-15-2019 Gender identity Identifies as male gender (finding) [facility] Start: 09-15-2022 Sexual orientation Heterosexual (finding) [facility] Start: 09-01-2023 Tobacco smoking status PAIS Unknown if ever smoked [facility] Start: 09-01-2023 End: 03-01-2025 Tobacco smoking status NHIS Smokes tobacco daily (finding) [facility] Functional Status Date Assessment Result Facility 02-04-2015 Are you deaf, or do you have serious difficulty hearing No 02/04/2015 9:48 AM Karin Romero LPN No [facility] 02-04-2015 Are you blind, or do you have serious difficulty seeing, even when wearing glasses No 02/04/2015 9:48 AM Karin Romero LPN No [facility] 02-04-2015 Do you have serious difficulty walking or climbing stairs No 02/04/2015 9:48 AM Karin Romero LPN No [facility] 02-04-2015 Do you have difficul ty dressing or bathing No 02/04/2015 9:48 AM Karin Romero LPN No [facility] 02-04-2015 Because of a physica l, mental, or emotional condition, do you have difficulty doing errands alone such as visiting a physician's office or shopping No 02/04/2015 9:48 AM Karin Romero LPN No [facility] Mental Status Date Assessment Result Facility 02-04-2015 Because of a physica l, mental, or emotional condition, do you have serious difficulty concentrating, remembering, or making decisions No 02/04/2015 9:48 AM Karin Romero LPN No [facility] Clinical Notes 01-12-2022 to 02-08-2025 Telephone Encounter - Karin Yeager LPN - 02/08/2025 12:28 PM EDTTelephone Encounter - Karin Yeager LPN - 02/08/2025 12:28 PM EDGarrett Luque MD - 02/06/2025 10:00 AM EDT Note Date & Type Note Facility 02-08-2025 Telephone encounter Note Left message of same on pt's identified vm. Karin Yeager LPN [facility] 02-08-2025 Miscellaneous Notes Left message of same on pt's identified vm. Karin Yeager LPN Labs are all stable. Noemi Dickens PA-C Received lab results ordered by PCP and done at [facility]. Pt had ov 02/06/25. Karin Yeager LPN Scan on 02/07/2025 2:39 PM by Provider ExternalRADHA: Microbiology Scan on 02/07/2025 1:42 PM by Provider ExternalRADHA: Chemistry Scan on 02/07/2025 12:41 PM by Provider, ExternalRADHA: Hematology documented in this encounter [facility] 02-08-2025 Telephone encounter Note Labs are all stable. Noemi Dickens PA-C [facility] 02-07-2025 Telephone encounter Note Received lab results ordered by PCP and done at [facility]. Pt had ov 02/06/25. Karin Yeager LPN Scan on 02/07/2025 2:39 PM by Provider, RADHA Lyon: Microbiology Scan on 02/07/2025 1:42 PM by Provider, RADHA Lyon: Chemistry Scan on 02/07/2025 12:41 PM by Provider, RADHA Lyon: Hematology [facility] 02-06-2025 History of Present illness Narrative Images from the original note were not included. Chief Complaint Patient presents with: Physical HPI Breezy Smith is a 64 year old male who presents here today for Physical. Patient with hx of DM2, HTN, hyperlipidemia, former smoker and those as below. Patient has been doing ok. No new issues or concerns. Past medical history, appointments, medications, allergies reviewed. 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 Mild concentric left ventricular hypertrophy (LVH) 04/16/2014 Seborrheic dermatitis of scalp 01/25/2024 Senile nuclear sclerosis 04/03/2014 Type 2 diabetes mellitus without complication, without long-term current use of insulin (HCC) 10/16/2017 a1c 6.5% oct 2020 Ulnar neuropathy of left upper extremity 09/10/2019 Previous Surgical History PAST SURGICAL HISTORY Procedure Laterality Date 2-D ECHO (TTE); COMPLETE 04/15/2014 EF=55%, mild concentric LVH and diastolic dysfunction TONSILLECTOMY HX Bilateral 1968 US CAROTID 03/28/2014 IC WNL, right carotid bulb mod stenosis near origin of Rt EC Family History FAMILY HISTORY Problem Relation Age of Onset No Ocular Disease Father Cancer Father Diabetes Father Hypertension Father No Ocular Disease Mother Cancer Mother Hypertension Mother Cataract Sister Diabetes Sister Hypertension Sister No Ocular Disease Brother Cancer Brother Hypertension Brother No Ocular Disease Maternal Grandmother Hypertension Maternal Grandmother Cataract Maternal Grandfather Cancer Maternal Grandfather Hypertension Maternal Grandfather No Ocular Disease Paternal Grandmother Hypertension Paternal Grandmother No Ocular Disease Paternal Grandfather Hypertension Paternal Grandfather No Ocular Disease Brother Cancer Brother Hypertension Brother Patient Allergies ALLERGIES Allergen Reactions Bees Anaphylaxis Wasps Anaphylaxis Penicillins Other: See Comments Pt states took when young just made him real sick Current Medications Current Outpatient Medications on File Prior to Visit Medication Sig metoprolol succinate ER (TOPROL XL) 100 mg Take one daily with the 200 mg strength for total of 300 mg a day lisinopril (ZESTRIL) 40 mg tablet Take 1 tablet by mouth two times a day. atorvastatin (LIPITOR) 40 mg tablet Take 1 tablet by mouth once daily. meloxicam (MOBIC) 7.5 mg tablet Take 1 tablet by mouth once daily. amLODIPine (NORVASC) 5 mg tablet Take 1 tablet by mouth once daily. metoprolol succinate ER (TOPROL XL) 200 mg 24 hr tablet Take one tab a day with 100 mg dose for total of 300 mg a day. PARoxetine (PAXIL) 10 mg tablet Take 1 tablet by mouth once daily. triamterene-hydroCHLOROthiazide (DYAZIDE) 37.5-25 mg per capsule Take 1 capsule by mouth once daily. ketoconazole (NIZORAL) 2 % shampoo Apply to affected area two times a week. ibuprofen (MOTRIN) 800 mg tablet TAKE 1 TABLET BY MOUTH EVERY 8 HOURS NEEDED FOR PAIN No current facility-administered medications on file prior to visit. Social History Social History Tobacco Use Smoking status: Former Current packs/day: 0.00 Average packs/day: 0.5 packs/day for 15.0 years (7.5 ttl pk-yrs) Types: Cigarettes Start date: 09/2004 Quit date: 09/2019 Years since quittin.3 Smokeless tobacco: Never Vaping Use Vaping status: Never Used Substance Use Topics Alcohol use: Yes Alcohol/week: 2.0 standard drinks of alcohol Types: 2 Cans of Beer (12oz) per week Drug use: No Review of Symptoms REVIEW OF SYSTEMS GENERAL: No weight loss, malaise or fevers HEENT: Negative for frequent or significant headaches, No changes in hearing or vision, no nose bleeds or other nasal problems NECK: Negative for lumps, goiter, pain and significant neck swelling RESPIRATORY: Negative for cough, hemoptysis, wheezing, COPD, dyspnea or shortness of breath CARDIOVASCULAR: Negative for chest pain, leg swelling, hypertension, CHF or palpitations GI: No nausea, vomiting, or diarrhea, No heartburn or reflux symptoms, and no blood : No history of dysuria, frequency or blood MUSCULOSKELETAL: for the past 7 months has been having pain at the 1st carpal/metacarpal junction. Started after doing presses. Hurts to put any pressure on it. When he gets up each morning the left thumb, 1st and 2nd finger go numb. Saw a provider back in [facility] and x-ray showed destructive OA. Patient was placed on Mobic and advised to get PHYSICAL THERAPY. Patient talked with the of a friend who is a physical therapist and did a HEP with no improvement. Patient took the Mobic with no benefit. SKIN: Negative for lesions, rash, and itching PSYCH: Negative for sleep disturbance, mood disorder and recent psychosocial stressors, Paxil continues to be of benefit. HEMATOLOGY/LYMPHOLOGY: Negative for prolonged bleeding, bruising easily or swollen nodes ENDOCRINE: Negative for cold or heat intolerance, symptoms of low BS's NEURO: No history of headaches, syncope, paralysis, seizures or tremors EXAM: BP 128/92 Pulse 72 Resp 16 Ht 171.5 cm (5' 7.5) Wt 103 kg (227 lb) BMI 35.03 kg/m BP 128/78 Pulse 72 Resp 16 Ht 171.5 cm (5' 7.5) Wt 103 kg (227 lb) BMI 35.03 kg/m Last 5 Encounter Wt Readings: Date: Wt: 02/06/2025 103 kg (227 lb) 09/20/2024 102.1 kg (225 lb) 08/01/2024 101.2 kg (223 lb) 01/25/2024 98.1 kg (216 lb 3.2 oz) 09/07/2023 96.6 kg (213 lb) General Appearance: Well appearing, alert, in no acute distress, well-hydrated, well nourished.. Skin: Skin color, texture, turgor normal, no suspicious rashes or lesions. Head: Normocephalic, no masses, lesions, tenderness or abnormalities. Eyes: Anicteric sclera. Pupils are equally round and reactive to light. Extraocular movements are intact. . Ears: External ears, TM's normal, canals clear. Nose/Sinuses: Nares normal, septum midline, mucosa normal, no drainage or sinus tenderness. Oropharynx: Lips, mucosa, and tongue normal, teeth and gums normal, oropharynx normal. Neck: Supple, no adenopathy; thyroid symmetric, normal size, no bruits. Lungs: Lungs clear to auscultation. No wheezing, rhonchi, rales.. Heart: RRR without murmur, gallop, or rubs. No ectopy. Abdomen: Normal abdominal exam, Abdomen soft, non-tender. Bowel sounds normal. No masses, organomegaly. Extremities: No deformities, edema, skin discoloration, clubbing or cyanosis. Good capillary refill. . Musculoskeletal: Muscular strength intact, No joint swelling, deformity, or tenderness. Peripheral Pulses: Normal. Neurologic: Gait normal. Reflexes normal and symmetric. Sensation to light touch and crainal nerves 2-12 intact.. Genitalia: Normal, Penis normal. No urethral discharge. Scrotum normal to palpation. No hernia.. Rectal: Normal exam. Diabetic Foot Exam: Feet: Shoes and socks removed, normal distal pulses, sensitive to 10 gm microfilament, vibratory exam within normal limits, and calluses noted bilaterally Skin: warm, dry, and normal hair growth Vascular Pulses: Normal SEMMES-KAYLIE MONOFILAMENT TESTING Left Foot Right Foot Dorsal Surface Intact Dorsal Surface Intact Plantar Surface Intact Plantar Surface Intact Health Maintenance List BP Controlled (<130/80) due on 12/11/2023 HbA1C due on 01/29/2025 Urine Albumin:Creatinine Ratio due on 01/24/2025 Diabetic Foot Exam due on 01/24/2025 Depression Screening due on 01/24/2025 Dilated Retinal Exam due on 05/04/2025 LDL Cholesterol due on 08/01/2025 Annual PCP Team Chronic Disease Visit due on 09/20/2025 DTaP,Tdap,Td Vaccine(2 - Td or Tdap) due on 06/10/2027 Prostate Cancer Screening Discussion due on 01/24/2029 RSV Vaccine(1 - 1-dose 75+ series) due on 2035 Influenza Vaccine Completed Shingrix Vaccine Completed Pneumococcal Vaccine: 50+ Completed Colorectal Cancer Screening Discontinued Hepatitis C Screening Discontinued HIV Screening Discontinued Covid-19 Vaccine Discontinued Data reviewed Results XR WRIST GENERAL 3V PA/LAT/OBL RIGHT (Acc#[id number]) (Order [id number]) Patient Info Patient Name Sex Breezy Mejia ([id number]) Male 1960 09/24/2024 11:25 AM - Radiology, [place] In Impression IMPRESSION: Degenerative changes Landscape Contractor: QUINCY Transcribe Date/Time: Sep 24 2024 11:22A Dictated by : PEE WRIGHT MD This examination was interpreted and the report reviewed and electronically signed by: PEE WRIGHT MD on Sep 24 2024 11:23AM EST Results-Findings * * *Final Report* * * DATE OF EXAM: Sep 20 2024 9:20AM WOX [id number] - XR WRIST 3V PA/LAT/OBL RT / PROCEDURE REASON: multiple diagnoses * * * * Physician Interpretation * * * * PROCEDURE: Right wrist INDICATION: Right hand pain Right hand weakness .Pt. states Rt wrist pain, radial side, for 1 month. No injury. TECHNIQUE: XR WRIST 3V PA/LAT/OBL RT COMPARISON: None FINDINGS: Mild radiocarpal and moderate 1st CMC joint osteoarthrosis. No erosion or focal soft tissue swelling. No fracture or dislocation. A/P ASSESSMENT/PLAN: 1. Well adult exam - ICD9: V70.0, ICD10: Z00.00 (primary diagnosis) - Counseled on healthy diet and regular exercise - Discussed need for and benefit of weight loss. BMI 35.03 kg/(m^2) - Follow up for annual exam in one year 2. Type 2 diabetes mellitus without complication, without long-term current use of insulin (HCC) - ICD9: 250.00, ICD10: E11.9 - Control undetermined, due for labs - Continue current medications - Counseled on healthy diet and regular exercise - Discussed need for and benefit of weight loss. BMI 35.03 kg/(m^2) 3. Essential hypertension - ICD9: 401.9, ICD10: I10 - Controlled - Continue current medications - Recommend home blood pressure monitoring, to bring results to next visit - Encouraged sodium restriction, DASH or Mediterranean diet - Recommend regular aerobic exercise - Discussed need for and benefit of weight loss. BMI 35.03 kg/(m^2) 4. Dyslipidemia - ICD9: 272.4, ICD10: E78.5 - Control undetermined, due for labs - Continue current medications - Counseled on healthy diet and regular exercise - Discussed need for and benefit of weight loss. BMI 35.03 kg/(m^2) 5. Mild concentric left ventricular hypertrophy (LVH) - ICD9: 429.3, ICD10: I51.7 - clinically stable no changes. 6. Left ventricular diastolic dysfunction with preserved systolic function - ICD9: 429.9, ICD10: I51.89 - as per #5 7. DESIRE (generalized anxiety disorder) - ICD9: 300.02, ICD10: F41.1 - stable on Paxil. 8. Foot callus - ICD9: 700, ICD10: L84 - discussed care to prevent ulcers. 9. Screening for depression - ICD9: V79.0, ICD10: Z13.31 - done: neg. 10. Right wrist pain - ICD9: 719.43, ICD10: M25.531 - consult to Ortho 11. Numbness and tingling in right hand - ICD9: 782.0, ICD10: R20.0, R20.2 - consult to ortho Requested Prescriptions Signed Prescriptions Disp Refills amLODIPine (NORVASC) 5 mg tablet 90 tablet 1 Sig: Take 1 tablet by mouth once daily. metoprolol succinate ER (TOPROL XL) 200 mg 24 hr tablet 90 tablet 1 Sig: Take one tab a day with 100 mg dose for total of 300 mg a day. PARoxetine (PAXIL) 10 mg tablet 90 tablet 1 Sig: Take 1 tablet by mouth once daily. triamterene-hydroCHLOROthiazide (DYAZIDE) 37.5-25 mg per capsule 90 capsule 1 Sig: Take 1 capsule by mouth once daily. F/u 6 months routine Garrett Andrews MD documented in this encounter [facility] 02-06-2025 Note HNO ID: [id number] Author: GARRETT ANDREWS MD Service: ? Author Type: Physician Type: Progress Notes Filed: 02/06/2025 16:09 Note Text: Chief Complaint Patient presents with: Physical HPI Breezy Smith is a 64 year old male who presents here today for Physical. Patient with hx of DM2, HTN, hyperlipidemia, former smoker and those as below. Patient has been doing ok. No new issues or concerns. Past medical history, appointments, medications, allergies reviewed. 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 Mild concentric left ventricular hypertrophy (LVH) 04/16/2014 Seborrheic dermatitis of scalp 01/25/2024 Senile nuclear sclerosis 04/03/2014 Type 2 diabetes mellitus without complication, without long-term current use of insulin (HCC) 10/16/2017 a1c 6.5% oct 2020 Ulnar neuropathy of left upper extremity 09/10/2019 Previous Surgical History PAST SURGICAL HISTORY Procedure Laterality Date 2-D ECHO (TTE); COMPLETE 04/15/2014 EF=55%, mild concentric LVH and diastolic dysfunction TONSILLECTOMY HX Bilateral 1968 US CAROTID 03/28/2014 IC WNL, right carotid bulb mod stenosis near origin of Rt EC Family History FAMILY HISTORY Problem Relation Age of Onset No Ocular Disease Father Cancer Father Diabetes Father Hypertension Father No Ocular Disease Mother Cancer Mother Hypertension Mother Cataract Sister Diabetes Sister Hypertension Sister No Ocular Disease Brother Cancer Brother Hypertension Brother No Ocular Disease Maternal Grandmother Hypertension Maternal Grandmother Cataract Maternal Grandfather Cancer Maternal Grandfather Hypertension Maternal Grandfather No Ocular Disease Paternal Grandmother Hypertension Paternal Grandmother No Ocular Disease Paternal Grandfather Hypertension Paternal Grandfather No Ocular Disease Brother Cancer Brother Hypertension Brother Patient Allergies ALLERGIES Allergen Reactions Bees Anaphylaxis Wasps Anaphylaxis Penicillins Other: See Comments Pt states took when young just made him real sick Current Medications Current Outpatient Medications on File Prior to Visit Medication Sig metoprolol succinate ER (TOPROL XL) 100 mg Take one daily with the 200 mg strength for total of 300 mg a day lisinopril (ZESTRIL) 40 mg tablet Take 1 tablet by mouth two times a day. atorvastatin (LIPITOR) 40 mg tablet Take 1 tablet by mouth once daily. meloxicam (MOBIC) 7.5 mg tablet Take 1 tablet by mouth once daily. amLODIPine (NORVASC) 5 mg tablet Take 1 tablet by mouth once daily. metoprolol succinate ER (TOPROL XL) 200 mg 24 hr tablet Take one tab a day with 100 mg dose for total of 300 mg a day. PARoxetine (PAXIL) 10 mg tablet Take 1 tablet by mouth once daily. triamterene-hydroCHLOROthiazide (DYAZIDE) 37.5-25 mg per capsule Take 1 capsule by mouth once daily. ketoconazole (NIZORAL) 2 % shampoo Apply to affected area two times a week. ibuprofen (MOTRIN) 800 mg tablet TAKE 1 TABLET BY MOUTH EVERY 8 HOURS NEEDED FOR PAIN No current facility-administered medications on file prior to visit. Social History Social History Tobacco Use Smoking status: Former Current packs/day: 0.00 Average packs/day: 0.5 packs/day for 15.0 years (7.5 ttl pk-yrs) Types: Cigarettes Start date: 09/2004 Quit date: 09/2019 Years since quittin.3 Smokeless tobacco: Never Vaping Use Vaping status: Never Used Substance Use Topics Alcohol use: Yes Alcohol/week: 2.0 standard drinks of alcohol Types: 2 Cans of Beer (12oz) per week Drug use: No Review of Symptoms REVIEW OF SYSTEMS GENERAL: No weight loss, malaise or fevers HEENT: Negative for frequent or significant headaches, No changes in hearing or vision, no nose bleeds or other nasal problems NECK: Negative for lumps, goiter, pain and significant neck swelling RESPIRATORY: Negative for cough, hemoptysis, wheezing, COPD, dyspnea or shortness of breath CARDIOVASCULAR: Negative for chest pain, leg swelling, hypertension, CHF or palpitations GI: No nausea, vomiting, or diarrhea, No heartburn or reflux symptoms, and no blood : No history of dysuria, frequency or blood MUSCULOSKELETAL: for the past 7 months has been having pain at the 1st carpal/metacarpal junction. Started after doing presse (more content not included)... [facility] 01-07-2025 Miscellaneous Notes Prescription was sent 12/31/2024. Lexis Bolden MA documented in this encounter [facility] 01-07-2025 Telephone encounter Note Prescription was sent 12/31/2024. Lexis Bolden MA [facility] 12-31-2024 Telephone encounter Note The following approved medication requests have been transmitted electronically. Requested Prescriptions Signed Prescriptions Disp Refills atorvastatin (LIPITOR) 40 mg tablet 90 tablet 1 Sig: Take 1 tablet by mouth once daily. Garrett Andrews MD [facility] 12-31-2024 Miscellaneous Notes The following approved medication requests have been transmitted electronically. Requested Prescriptions Signed Prescriptions Disp Refills atorvastatin (LIPITOR) 40 mg tablet 90 tablet 1 Sig: Take 1 tablet by mouth once daily. Garrett Andrews MD Prescription Refill Information The patient has been identified by name and date of : Yes Caregiver verified no other encounters exist for this prescription request: Yes Caregiver confirmed with patient/requestor that no other refills are due, in the near future, with this provider at this time: Yes The last office visit in the department: 07/2024 Does the patient have a future office visit with this provider/department: Yes Requested Prescriptions Pending Prescriptions Disp Refills atorvastatin (LIPITOR) 40 mg tablet 90 tablet 1 Sig: Take 1 tablet by mouth once daily. Lexis Bolden MA December 31, 2024 8:10 AM documented in this encounter [facility] 12-31-2024 Telephone encounter Note Prescription Refill Information The patient has been identified by name and date of : Yes Caregiver verified no other encounters exist for this prescription request: Yes Caregiver confirmed with patient/requestor that no other refills are due, in the near future, with this provider at this time: Yes The last office visit in the department: 07/2024 Does the patient have a future office visit with this provider/department: Yes Requested Prescriptions Pending Prescriptions Disp Refills atorvastatin (LIPITOR) 40 mg tablet 90 tablet 1 Sig: Take 1 tablet by mouth once daily. Lexis Bolden MA December 31, 2024 8:10 AM [facility] 11-01-2024 Telephone encounter Note Spoke with pt. He will poultry picker rx. Rx placed in Med Rec for poultry picker. Karin Yeager LPN [facility] 11-01-2024 Miscellaneous Notes Spoke with pt. He will poultry picker rx. Rx placed in Med Rec for poultry picker. Karin Yeager LPN Rx at nurse's desk in Noemi's office, waiting on pt's response. Karin Yeager LPN ready Pt is requesting a new rx for handicap placard. Asked pt to respond via MC as to what he would like done with the Rx. Karin Yeager LPN documented in this encounter [facility] 10-31-2024 Telephone encounter Note Rx at nurse's desk in Noemi's office, waiting on pt's response. Karin Yeager LPN [facility] 10-31-2024 Telephone encounter Note ready [facility] 10-31-2024 Telephone encounter Note Pt is requesting a new rx for handicap placard. Asked pt to respond via MC as to what he would like done with the Rx. Karin Yeager LPN [facility] 10-31-2024 Note HNO ID: [id number] Author: ADA LOUISE LPN Service: ? Author Type: LICENSED NURSE Type: Progress Notes Filed: 10/31/2024 10:14 Note Text: Patient presents for Shingrix vaccine. No problems at this time. Tolerated injection well. Ada Louise LPN [facility] 10-31-2024 History of Present illness Narrative Patient presents for Shingrix vaccine. No problems at this time. Tolerated injection well. Ada Louise LPN documented in this encounter [facility] 09-24-2024 Telephone encounter Note Pt notified and verbalized understanding Lucia Last MA [facility] 09-24-2024 Miscellaneous Notes Pt notified and verbalized understanding Lucia Last MA Please let patient know I have sent in a short course of meloxicam which is an antiinflammatory. DO not take with ibuprofen. I have also have ordered PT. Pt notified and asking if you had any recommendations for the pain he is having- states he can hardly use his hand. Please advise Lucia Last MA Please let patient know his xray show degenerative arthritis. documented in this encounter [facility] 09-24-2024 Telephone encounter Note Please let patient know I have sent in a short course of meloxicam which is an antiinflammatory. DO not take with ibuprofen. I have also have ordered PT. [facility] 09-24-2024 Telephone encounter Note Pt notified and asking if you had any recommendations for the pain he is having- states he can hardly use his hand. Please advise Lucia Last MA [facility] 09-24-2024 Telephone encounter Note Please let patient know his xray show degenerative arthritis. [facility] 09-20-2024 History of Present illness Narrative Radiology Service Progress Note PATIENT NAME: Breezy Smith DATE OF SERVICE: September 20, 2024 TIME: 9:15 AM PATIENT IDENTITY VERIFICATION COMPLETED USING TWO (2) IDENTIFIERS: Name and Date of confirmed by patient verbally. FALL SCREENING: Has the patient had 2 falls in the last year or 1 fall with injury or currently using an Ambulatory Assistive Device (Walker, Cane, Wheelchair, Crutches, etc.)? No PATIENT GENDER DATA: Male PATIENT RELEVANT IMPLANT DATA REVIEWED: Not Applicable PATIENT PRESENTS WITH AN IMPLANTABLE OR ATTACHED LATHE MACHINE OPERATOR: No RADIOLOGY DEPARTMENT: General X-ray: Exam(s) Completed: Upper Extremity X-Ray(s): Wrist, right PERIPHERAL IV DATA: Not applicable SIGNED BY: RT Edvin(R) September 20, 2024 9:15 AM documented in this encounter [facility] 09-20-2024 Note HNO ID: [id number] Author: GENO QUEZADA RT(R) Service: ? Author Type: Technologist Type: Progress Notes Filed: 09/20/2024 09:20 Note Text: Radiology Service Progress Note PATIENT NAME: Breezy Smith DATE OF SERVICE: September 20, 2024 TIME: 9:15 AM PATIENT IDENTITY VERIFICATION COMPLETED USING TWO (2) IDENTIFIERS: Name and Date of confirmed by patient verbally. FALL SCREENING: Has the patient had 2 falls in the last year or 1 fall with injury or currently using an Ambulatory Assistive Device (Walker, Cane, Wheelchair, Crutches, etc.)? No PATIENT GENDER DATA: Male PATIENT RELEVANT IMPLANT DATA REVIEWED: Not Applicable PATIENT PRESENTS WITH AN IMPLANTABLE OR ATTACHED LATHE MACHINE OPERATOR: No RADIOLOGY DEPARTMENT: General X-ray: Exam(s) Completed: Upper Extremity X-Ray(s): Wrist, right PERIPHERAL IV DATA: Not applicable SIGNED BY: RT Edvin(R) September 20, 2024 9:15 AM [facility] 09-20-2024 Note HNO ID: [id number] Author: TIP JONES APRN.METEOROLOGY TEACHER Service: ? Author Type: Nurse Practitioner Type: Progress Notes Filed: 09/20/2024 09:00 Note Text: Chief Complaint Patient presents with: Wrist Pain: Right wrist X 6 months HPI Breezy Smith is a 63 year old male who presents here today for Above Complaints.. Patient presents for right hand pain x6 months. Reports shooting pains through his hands intermittently throughout the day. Patient reports he has been resting his hand and wrist but continues to have pain. Also reports weakness with lifting and physician internist and is unable to grasp even a coffee mug as well as swelling. Reports he had a similar situation a few years ago and was told one of the metacarpals was very degenerative. Currently using ibuprofen Past medical history, appointments, medications, allergies reviewed. 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 Mild concentric left ventricular hypertrophy (LVH) 04/16/2014 Seborrheic dermatitis of scalp 01/25/2024 Senile nuclear sclerosis 04/03/2014 Type 2 diabetes mellitus without complication, without long-term current use of insulin (HCC) 10/16/2017 a1c 6.5% oct 2020 Ulnar neuropathy of left upper extremity 09/10/2019 Previous Surgical History PAST SURGICAL HISTORY Procedure Laterality Date 2-D ECHO (TTE); COMPLETE 04/15/2014 EF=55%, mild concentric LVH and diastolic dysfunction TONSILLECTOMY HX Bilateral 1968 US CAROTID 03/28/2014 IC WNL, right carotid bulb mod stenosis near origin of Rt EC Family History FAMILY HISTORY Problem Relation Age of Onset No Ocular Disease Father Cancer Father Diabetes Father Hypertension Father No Ocular Disease Mother Cancer Mother Hypertension Mother Cataract Sister Diabetes Sister Hypertension Sister No Ocular Disease Brother Cancer Brother Hypertension Brother No Ocular Disease Maternal Grandmother Hypertension Maternal Grandmother Cataract Maternal Grandfather Cancer Maternal Grandfather Hypertension Maternal Grandfather No Ocular Disease Paternal Grandmother Hypertension Paternal Grandmother No Ocular Disease Paternal Grandfather Hypertension Paternal Grandfather No Ocular Disease Brother Cancer Brother Hypertension Brother Patient Allergies ALLERGIES Allergen Reactions Bees Anaphylaxis Wasps Anaphylaxis Penicillins Other: See Comments Pt states took when young just made him real sick Current Medications Current Outpatient Medications on File Prior to Visit Medication Sig amLODIPine (NORVASC) 5 mg tablet Take 1 tablet by mouth once daily. lisinopril (ZESTRIL) 40 mg tablet Take 1 tablet by mouth two times a day. metoprolol succinate ER (TOPROL XL) 100 mg Take one daily with the 200 mg strength for total of 300 mg a day metoprolol succinate ER (TOPROL XL) 200 mg 24 hr tablet Take one tab a day with 100 mg dose for total of 300 mg a day. PARoxetine (PAXIL) 10 mg tablet Take 1 tablet by mouth once daily. triamterene-hydroCHLOROthiazide (DYAZIDE) 37.5-25 mg per capsule Take 1 capsule by mouth once daily. atorvastatin (LIPITOR) 40 mg tablet Take 1 tablet by mouth once daily. ketoconazole (NIZORAL) 2 % shampoo Apply to affected area two times a week. ibuprofen (MOTRIN) 800 mg tablet TAKE 1 TABLET BY MOUTH EVERY 8 HOURS NEEDED FOR PAIN No current facility-administered medications on file prior to visit. Social History Social History Tobacco Use Smoking status: Former Current packs/day: 0.00 Average packs/day: 0.5 packs/day for 15.0 years (7.5 ttl pk-yrs) Types: Cigarettes Start date: 09/2004 Quit date: 09/2019 Years since quittin.9 Smokeless tobacco: Never Vaping Use Vaping status: Never Used Substance Use Topics Alcohol use: Yes Alcohol/week: 2.0 standard drinks of alcohol Types: 2 Cans of Beer (12oz) per week Drug use: No Review of Symptoms REVIEW OF SYSTEMS SEE HPI EXAM: BP 131/76 Pulse 60 Resp 14 Wt 102.1 kg (225 lb) BMI 34.90 kg/m? General Appearance: Well appearing, alert, in no acute distress, well-hydrated, well nourished. Musculoskeletal: Positive findings: Tenderness and swelling of PIP and MCP joint right thumb. Peripheral Pulses: Normal. Neurologic: Gait normal. Reflexes normal and symmetric. Sensation grossly intac (more content not included)... [facility] 09-20-2024 History of Present illness Narrative Chief Complaint Patient presents with: Wrist Pain: Right wrist X 6 months HPI Breezy Smith is a 63 year old male who presents here today for Above Complaints.. Patient presents for right hand pain x6 months. Reports shooting pains through his hands intermittently throughout the day. Patient reports he has been resting his hand and wrist but continues to have pain. Also reports weakness with lifting and physician internist and is unable to grasp even a coffee mug as well as swelling. Reports he had a similar situation a few years ago and was told one of the metacarpals was very degenerative. Currently using ibuprofen Past medical history, appointments, medications, allergies reviewed. 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 Mild concentric left ventricular hypertrophy (LVH) 04/16/2014 Seborrheic dermatitis of scalp 01/25/2024 Senile nuclear sclerosis 04/03/2014 Type 2 diabetes mellitus without complication, without long-term current use of insulin (HCC) 10/16/2017 a1c 6.5% oct 2020 Ulnar neuropathy of left upper extremity 09/10/2019 Previous Surgical History PAST SURGICAL HISTORY Procedure Laterality Date 2-D ECHO (TTE); COMPLETE 04/15/2014 EF=55%, mild concentric LVH and diastolic dysfunction TONSILLECTOMY HX Bilateral 1968 US CAROTID 03/28/2014 IC WNL, right carotid bulb mod stenosis near origin of Rt EC Family History FAMILY HISTORY Problem Relation Age of Onset No Ocular Disease Father Cancer Father Diabetes Father Hypertension Father No Ocular Disease Mother Cancer Mother Hypertension Mother Cataract Sister Diabetes Sister Hypertension Sister No Ocular Disease Brother Cancer Brother Hypertension Brother No Ocular Disease Maternal Grandmother Hypertension Maternal Grandmother Cataract Maternal Grandfather Cancer Maternal Grandfather Hypertension Maternal Grandfather No Ocular Disease Paternal Grandmother Hypertension Paternal Grandmother No Ocular Disease Paternal Grandfather Hypertension Paternal Grandfather No Ocular Disease Brother Cancer Brother Hypertension Brother Patient Allergies ALLERGIES Allergen Reactions Bees Anaphylaxis Wasps Anaphylaxis Penicillins Other: See Comments Pt states took when young just made him real sick Current Medications Current Outpatient Medications on File Prior to Visit Medication Sig amLODIPine (NORVASC) 5 mg tablet Take 1 tablet by mouth once daily. lisinopril (ZESTRIL) 40 mg tablet Take 1 tablet by mouth two times a day. metoprolol succinate ER (TOPROL XL) 100 mg Take one daily with the 200 mg strength for total of 300 mg a day metoprolol succinate ER (TOPROL XL) 200 mg 24 hr tablet Take one tab a day with 100 mg dose for total of 300 mg a day. PARoxetine (PAXIL) 10 mg tablet Take 1 tablet by mouth once daily. triamterene-hydroCHLOROthiazide (DYAZIDE) 37.5-25 mg per capsule Take 1 capsule by mouth once daily. atorvastatin (LIPITOR) 40 mg tablet Take 1 tablet by mouth once daily. ketoconazole (NIZORAL) 2 % shampoo Apply to affected area two times a week. ibuprofen (MOTRIN) 800 mg tablet TAKE 1 TABLET BY MOUTH EVERY 8 HOURS NEEDED FOR PAIN No current facility-administered medications on file prior to visit. Social History Social History Tobacco Use Smoking status: Former Current packs/day: 0.00 Average packs/day: 0.5 packs/day for 15.0 years (7.5 ttl pk-yrs) Types: Cigarettes Start date: 09/2004 Quit date: 09/2019 Years since quittin.9 Smokeless tobacco: Never Vaping Use Vaping status: Never Used Substance Use Topics Alcohol use: Yes Alcohol/week: 2.0 standard drinks of alcohol Types: 2 Cans of Beer (12oz) per week Drug use: No Review of Symptoms REVIEW OF SYSTEMS SEE HPI EXAM: BP 131/76 Pulse 60 Resp 14 Wt 102.1 kg (225 lb) BMI 34.90 kg/m General Appearance: Well appearing, alert, in no acute distress, well-hydrated, well nourished. Musculoskeletal: Positive findings: Tenderness and swelling of PIP and MCP joint right thumb. Peripheral Pulses: Normal. Neurologic: Gait normal. Reflexes normal and symmetric. Sensation grossly intact.. Health Maintenance List Shingrix Vaccine(2 of 2) due on 09/26/2024 Urine Albumin:Creatinine Ratio due on 01/24/2025 Diabetic Foot Exam due on 01/24/2025 Depression Screening due on 01/24/2025 HbA1C due on 01/29/2025 Dilated Retinal Exam due on 05/04/2025 LDL Cholesterol due on 08/01/2025 Annual PCP Team Chronic Disease Visit due on 08/01/2025 BP Controlled (<130/80) due on 08/01/2025 DTaP,Tdap,Td Vaccine(2 - Td or Tdap) due on 06/10/2027 Prostate Cancer Screening Discussion due on 01/24/2029 RSV Vaccine(1 - 1-dose 75+ series) due on 2035 Influenza Vaccine Completed Pneumococcal Vaccine: 50+ Completed Colorectal Cancer Screening Discontinued Hepatitis C Screening Discontinued HIV Screening Discontinued Covid-19 Vaccine Discontinued ASSESSMENT/PLAN: 1. Right hand pain - ICD9: 729.5, ICD10: M79.641 (primary diagnosis) - XR WRIST GENERAL 3V PA/LAT/OBL RIGHT 2. 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 Tip Jones APRN.METEOROLOGY TEACHER documented in this encounter [facility] 09-20-2024 Telephone encounter Note Patient calling with concern for right hand discomfort x 6 months. Has worsened over last month. Denies injury. Experiences right thumb numbness at times. Also experiences posterior hand discomfort when opens hand up; states it feels like it's burning like fire. No swelling, redness or temp change to right hand or arm. States he has been wearing an lawson bandage to his right hand and has been using his left hand mostly. Appt scheduled for today, for evaluation. Cheyanne Malhotra RN [facility] 09-20-2024 Miscellaneous Notes Patient calling with concern for right hand discomfort x 6 months. Has worsened over last month. Denies injury. Experiences right thumb numbness at times. Also experiences posterior hand discomfort when opens hand up; states it feels like it's burning like fire. No swelling, redness or temp change to right hand or arm. States he has been wearing an lawson bandage to his right hand and has been using his left hand mostly. Appt scheduled for today, for evaluation. Cheyanne Malhotra RN documented in this encounter [facility] 08-02-2024 Telephone encounter Note Patient notified of results and provider's instructions. Patient verbalizes understanding. Karin Yeager LPN [facility] 08-02-2024 Miscellaneous Notes Patient notified of results and provider's instructions. Patient verbalizes understanding. Karin Yeager LPN Let patient know that his A1c is 6.2% which is stable. Cholesterol looks good. His trigs have improved. LDL still in great range. Continue current management Thanks. Noemi Dickens PA-C documented in this encounter [facility] 08-02-2024 Telephone encounter Note Let patient know that his A1c is 6.2% which is stable. Cholesterol looks good. His trigs have improved. LDL still in great range. Continue current management Thanks. Noemi Dickens PA-C [facility] 08-01-2024 Instructions Garrett Andrews MD - 08/01/2024 10:16 AM EST Please get labs and urine test done on or after 01/18/2025 prior to your next visit. documented in this encounter [facility] 08-01-2024 History of Present illness Narrative Chief Complaint Patient presents with: F/U 6 months HPI Breezy Smith is a 63 year old male who presents here today for 6 month follow up. Patient has been doing well. No issues or concerns. Would like the shingrix and flu vaccinations. Patient with hx of DM2, HTN, hyperlipidemia, former smoker and those as below. Component Ref Range & Units 6 mo ago (01/25/24) 11 mo ago (08/09/23) 1 yr ago (12/10/22) 2 yr ago (06/01/22) 2 yr ago (11/25/21) 3 yr ago (05/23/21) 3 yr ago (11/15/20) Hemoglobin A1C 4.3 - 5.6 % 6.2 High 6.0 High CM 6.0 High CM 6.3 High CM 6.2 High CM 6.4 High CM 6.5 High Patient sees Optometry Dr. Fuentes; Past medical history, appointments, medications, allergies reviewed. 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 Mild concentric left ventricular hypertrophy (LVH) 04/16/2014 Senile nuclear sclerosis 04/03/2014 Type 2 diabetes mellitus without complication, without long-term current use of insulin (HCC) 10/16/2017 a1c 6.5% oct 2020 Ulnar neuropathy of left upper extremity 09/10/2019 Previous Surgical History PAST SURGICAL HISTORY Procedure Laterality Date 2-D ECHO (TTE); COMPLETE 04/15/2014 EF=55%, mild concentric LVH and diastolic dysfunction TONSILLECTOMY HX Bilateral 1968 US CAROTID 03/28/2014 IC WNL, right carotid bulb mod stenosis near origin of Rt EC Family History FAMILY HISTORY Problem Relation Age of Onset No Ocular Disease Father Cancer Father Diabetes Father Hypertension Father No Ocular Disease Mother Cancer Mother Hypertension Mother Cataract Sister Diabetes Sister Hypertension Sister No Ocular Disease Brother Cancer Brother Hypertension Brother No Ocular Disease Maternal Grandmother Hypertension Maternal Grandmother Cataract Maternal Grandfather Cancer Maternal Grandfather Hypertension Maternal Grandfather No Ocular Disease Paternal Grandmother Hypertension Paternal Grandmother No Ocular Disease Paternal Grandfather Hypertension Paternal Grandfather No Ocular Disease Brother Cancer Brother Hypertension Brother Patient Allergies ALLERGIES Allergen Reactions Bees Anaphylaxis Wasps Anaphylaxis Penicillins Other: See Comments Pt states took when young just made him real sick Current Medications Current Outpatient Medications on File Prior to Visit Medication Sig atorvastatin (LIPITOR) 40 mg tablet Take 1 tablet by mouth once daily. amLODIPine (NORVASC) 5 mg tablet Take 1 tablet by mouth once daily. metoprolol succinate ER (TOPROL XL) 100 mg Take one daily with the 200 mg strength for total of 300 mg a day metoprolol succinate ER (TOPROL XL) 200 mg 24 hr tablet Take one tab a day with 100 mg dose for total of 300 mg a day. PARoxetine (PAXIL) 10 mg tablet Take 1 tablet by mouth once daily. triamterene-hydroCHLOROthiazide (DYAZIDE) 37.5-25 mg per capsule Take 1 capsule by mouth once daily. lisinopril (ZESTRIL) 40 mg tablet Take 1 tablet by mouth two times a day. ketoconazole (NIZORAL) 2 % shampoo Apply to affected area two times a week. ibuprofen (MOTRIN) 800 mg tablet TAKE 1 TABLET BY MOUTH EVERY 8 HOURS NEEDED FOR PAIN No current facility-administered medications on file prior to visit. Social History Social History Tobacco Use Smoking status: Former Current packs/day: 0.00 Average packs/day: 0.5 packs/day for 15.0 years (7.5 ttl pk-yrs) Types: Cigarettes Start date: 09/2004 Quit date: 09/2019 Years since quittin.8 Smokeless tobacco: Never Vaping Use Vaping status: Never Used Substance Use Topics Alcohol use: Yes Alcohol/week: 2.0 standard drinks of alcohol Types: 2 Cans of Beer (12oz) per week Drug use: No Review of Symptoms REVIEW OF SYSTEMS GENERAL: No weight loss, malaise or fevers NECK: Negative for lumps, goiter, pain and significant neck swelling RESPIRATORY: Negative for cough, hemoptysis, wheezing, COPD, dyspnea or shortness of breath CARDIOVASCULAR: Negative for chest pain, leg swelling, hypertension, CHF or palpitations GI: No nausea, vomiting, or diarrhea and No heartburn or reflux symptoms : No history of dysuria, blood ENDOCRINE: Negative for symptoms of low BS's NEURO: No history of headaches, syncope, paralysis, seizures or tremors EXAM: BP 138/84 Pulse 64 Resp 16 Wt 101.2 kg (223 lb) BMI 34.59 kg/m BP 128/74 Pulse 64 Resp 16 Wt 101.2 kg (223 lb) BMI 34.59 kg/m Last 5 Encounter Wt Readings: Date: Wt: 08/01/2024 101.2 kg (223 lb) 01/25/2024 98.1 kg (216 lb 3.2 oz) 09/07/2023 96.6 kg (213 lb) 08/09/2023 97.1 kg (214 lb) 12/10/2022 95.3 kg (210 lb) General Appearance: Well appearing, alert, in no acute distress, well-hydrated, well nourished.. Eyes: Anicteric sclera. Pupils are equally round and reactive to light. Extraocular movements are intact. . Neck: Supple, no adenopathy; thyroid symmetric, normal size, no bruits. Lungs: Lungs clear to auscultation. No wheezing, rhonchi, rales.. Heart: RRR without murmur, gallop, or rubs. No ectopy. Abdomen: Normal abdominal exam, Abdomen soft, non-tender. Bowel sounds normal. No masses, organomegaly. Extremities: No deformities, edema, skin discoloration, Good capillary refill. .. Peripheral Pulses: Normal. Neurologic: Gait normal. Sensation to light touch and crainal nerves 2-12 intact.. Health Maintenance List Shingrix Vaccine(1 of 2) Never done BP Controlled (<130/80) due on 12/11/2023 Influenza Vaccine(1) due on 05/27/2024 HbA1C due on 07/27/2024 Urine Albumin:Creatinine Ratio due on 01/24/2025 LDL Cholesterol due on 01/24/2025 Diabetic Foot Exam due on 01/24/2025 Depression Screening due on 01/24/2025 Dilated Retinal Exam due on 05/04/2025 Annual PCP Team Chronic Disease Visit due on 08/01/2025 DTaP,Tdap,Td Vaccine(2 - Td or Tdap) due on 06/10/2027 Prostate Cancer Screening Discussion due on 01/24/2029 RSV Vaccine(1 - 1-dose 75+ series) due on 2035 Pneumococcal Vaccine Completed Colorectal Cancer Screening Discontinued Hepatitis C Screening Discontinued HIV Screening Discontinued Covid-19 Vaccine Discontinued Data reviewed Latest Ref Rng 01/25/2024 WBC 3.70 - 11.00 k/uL 8.58 RBC 4.20 - 6.00 m/uL 4.63 Hemoglobin 13.0 - 17.0 g/dL 14.8 Hematocrit 39.0 - 51.0 % 42.5 MCV 80.0 - 100.0 fL 91.8 MCH 26.0 - 34.0 pg 32.0 MCHC 30.5 - 36.0 g/dL 34.8 RDW-CV 11.5 - 15.0 % 12.2 Platelet Count 150 - 400 k/uL 262 MPV 9.0 - 12.7 fL 10.2 Neut% % 59.0 Abs Neut (ANC) 1.45 - 7.50 k/uL 5.06 Lymph% % 25.9 Abs Lymph 1.00 - 4.00 k/uL 2.22 [place]% % 8.[address] [place] <0.87 k/uL 0.70 Eosin% % 5.7 Abs Eosin <0.46 k/uL 0.49 (H) Baso% % 0.9 Abs Baso <0.11 k/uL 0.08 Immature Gran % % 0.3 IMMATURE GRANS (ABS) <0.10 k/uL 0.03 NRBC /100 WBC 0.0 Absolute nRBC <0.01 k/uL <0.01 DTYPE Auto Color Yellow Yellow Clarity Clear Clear Glucose, Urine Negative Negative Bilirubin, Urine Negative Negative Ketones, Urine Negative Negative Specific [place], Ur 1.005 - 1.030 1.021 Hemoglobin/Blood,Ur Negative Negative pH, Urine <8.5 5.5 Protein, Urine Negative Negative Urobilinogen 0.2-1.0 EU/dL 0.2 EU/dL Nitrites Negative Negative Leukest Negative Negative WBC, Urine 0-5 /HPF 0-5 /HPF RBC, Urine 0-2 /HPF 0-2 /HPF Bacteria Negative /HPF Negative Epithelial Cells /HPF None Seen Hyaline Cast 0 /LPF 0 /LPF Protein, Total 6.3 - 8.0 g/dL 7.9 Albumin 3.9 - 4.9 g/dL 4.4 Calcium 8.5 - 10.2 mg/dL 9.9 Bilirubin, Total 0.2 - 1.3 mg/dL 0.6 Alkaline Phosphatase 38 - 113 U/L 86 AST 14 - 40 U/L 29 ALT 10 - 54 U/L 34 Glucose 74 - 99 mg/dL 95 BUN 9 - 24 mg/dL 20 Creatinine 0.73 - 1.22 mg/dL 0.99 Sodium 136 - 144 mmol/L 138 Potassium 3.7 - 5.1 mmol/L 4.1 Chloride 97 - 105 mmol/L 104 CO2 22 - 30 mmol/L 22 Anion Gap 9 - 18 mmol/L 12 eGFR >=60 mL/min/1.73m 86 Total Cholesterol, Nonfasting <200 mg/dL 150 Triglycerides, Nonfasting <150 mg/dL 248 (H) HDL Cholesterol, Nonfasting >39 mg/dL 37 (L) LDL Cholesterol, Nonfasting <100 mg/dL 63 Non HDL Cholesterol, Nonfasting <130 mg/dL 113 VLDL Cholesterol, Nonfasting <30 mg/dL 50 (H) Total Chol/HDL Ratio, Nonfasting <5.10 mg/dL 4.05 LDL/HDL Ratio, Nonfasting <2.54 mg/dL 1.70 Creatinine, Ur Random (UCRR) 20.0 - 300.0 mg/dL 75.6 Albumin, Urine Random mg/L <12.0 Albumin/Creat Ratio <30 mg/g <16 Hemoglobin A1C 4.3 - 5.6 % 6.2 (H) Estimated Average Glucose mg/dL 131 PSA <2.60 ng/mL 0.69 A/P ASSESSMENT/PLAN: 1. Type 2 diabetes mellitus without complication, without long-term current use of insulin (HCC) - ICD9: 250.00, ICD10: E11.9 (primary diagnosis) - Control undetermined, due for labs - Counseled on healthy diet and regular exercise - Discussed need for and benefit of weight loss. BMI 34.59 kg/(m^2) - controlled with diet. 2. Essential hypertension - ICD9: 401.9, ICD10: I10 - Controlled - Continue current medications - Recommend home blood pressure monitoring, to bring results to next visit - Encouraged sodium restriction, DASH or Mediterranean diet - Recommend regular aerobic exercise - Discussed need for and benefit of weight loss. BMI 34.59 kg/(m^2) 3. Dyslipidemia - ICD9: 272.4, ICD10: E78.5 - Control undetermined, due for labs - Continue current medications - Counseled on healthy diet and regular exercise 4. Mild concentric left ventricular hypertrophy (LVH) - ICD9: 429.3, ICD10: I51.7 - clinically stable no changes. 5. Left ventricular diastolic dysfunction with preserved systolic function - ICD9: 429.9, ICD10: I51.89 - as per #5 6. DESIRE (generalized anxiety disorder) - ICD9: 300.02, ICD10: F41.1 - stable with the paxil. No changes. 7. Encounter for immunization - ICD9: V03.89, ICD10: Z23 - INFLUENZA VACCINE, AGE 6MO-64YR, TRIVALENT (AFLURIA, FLULAVAL, FLUVIRIN, FLUZONE): given 8. Need for vaccination - ICD9: V05.9, ICD10: Z23 - ZOSTER VACCINE, RECOMBINANT (SHINGRIX): #1 given today - ZOSTER VACCINE, RECOMBINANT (SHINGRIX): #2 in 2-3 months Requested Prescriptions Pending Prescriptions Disp Refills amLODIPine (NORVASC) 5 mg tablet 90 tablet 1 Sig: Take 1 tablet by mouth once daily. lisinopril (ZESTRIL) 40 mg tablet 180 tablet 1 Sig: Take 1 tablet by mouth two times a day. metoprolol succinate ER (TOPROL XL) 100 mg 90 tablet 1 Sig: Take one daily with the 200 mg strength for total of 300 mg a day metoprolol succinate ER (TOPROL XL) 200 mg 24 hr tablet 90 tablet 1 Sig: Take one tab a day with 100 mg dose for total of 300 mg a day. PARoxetine (PAXIL) 10 mg tablet 90 tablet 1 Sig: Take 1 tablet by mouth once daily. triamterene-hydroCHLOROthiazide (DYAZIDE) 37.5-25 mg per capsule 90 capsule 1 Sig: Take 1 capsule by mouth once daily. F/u 6 months WAE check CMP, Lipid, UA, urine micro albumin, A1c, CBC, TSH, PSA prior. Garrett Andrews MD documented in this encounter [facility] 08-01-2024 Note HNO ID: [id number] Author: GARRETT ANDREWS MD Service: ? Author Type: Physician Type: Progress Notes Filed: 08/01/2024 16:37 Note Text: Chief Complaint Patient presents with: F/U 6 months HPI Breezy Smith is a 63 year old male who presents here today for 6 month follow up. Patient has been doing well. No issues or concerns. Would like the shingrix and flu vaccinations. Patient with hx of DM2, HTN, hyperlipidemia, former smoker and those as below. Component Ref Range AND Units 6 mo ago (01/25/24) 11 mo ago (08/09/23) 1 yr ago (12/10/22) 2 yr ago (06/01/22) 2 yr ago (11/25/21) 3 yr ago (05/23/21) 3 yr ago (11/15/20) Hemoglobin A1C 4.3 - 5.6 % 6.2 High 6.0 High CM 6.0 High CM 6.3 High CM 6.2 High CM 6.4 High CM 6.5 High Patient sees Optometry Dr. Fuentes; Past medical history, appointments, medications, allergies reviewed. 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 Mild concentric left ventricular hypertrophy (LVH) 04/16/2014 Senile nuclear sclerosis 04/03/2014 Type 2 diabetes mellitus without complication, without long-term current use of insulin (HCC) 10/16/2017 a1c 6.5% oct 2020 Ulnar neuropathy of left upper extremity 09/10/2019 Previous Surgical History PAST SURGICAL HISTORY Procedure Laterality Date 2-D ECHO (TTE); COMPLETE 04/15/2014 EF=55%, mild concentric LVH and diastolic dysfunction TONSILLECTOMY HX Bilateral 1968 US CAROTID 03/28/2014 IC WNL, right carotid bulb mod stenosis near origin of Rt EC Family History FAMILY HISTORY Problem Relation Age of Onset No Ocular Disease Father Cancer Father Diabetes Father Hypertension Father No Ocular Disease Mother Cancer Mother Hypertension Mother Cataract Sister Diabetes Sister Hypertension Sister No Ocular Disease Brother Cancer Brother Hypertension Brother No Ocular Disease Maternal Grandmother Hypertension Maternal Grandmother Cataract Maternal Grandfather Cancer Maternal Grandfather Hypertension Maternal Grandfather No Ocular Disease Paternal Grandmother Hypertension Paternal Grandmother No Ocular Disease Paternal Grandfather Hypertension Paternal Grandfather No Ocular Disease Brother Cancer Brother Hypertension Brother Patient Allergies ALLERGIES Allergen Reactions Bees Anaphylaxis Wasps Anaphylaxis Penicillins Other: See Comments Pt states took when young just made him real sick Current Medications Current Outpatient Medications on File Prior to Visit Medication Sig atorvastatin (LIPITOR) 40 mg tablet Take 1 tablet by mouth once daily. amLODIPine (NORVASC) 5 mg tablet Take 1 tablet by mouth once daily. metoprolol succinate ER (TOPROL XL) 100 mg Take one daily with the 200 mg strength for total of 300 mg a day metoprolol succinate ER (TOPROL XL) 200 mg 24 hr tablet Take one tab a day with 100 mg dose for total of 300 mg a day. PARoxetine (PAXIL) 10 mg tablet Take 1 tablet by mouth once daily. triamterene-hydroCHLOROthiazide (DYAZIDE) 37.5-25 mg per capsule Take 1 capsule by mouth once daily. lisinopril (ZESTRIL) 40 mg tablet Take 1 tablet by mouth two times a day. ketoconazole (NIZORAL) 2 % shampoo Apply to affected area two times a week. ibuprofen (MOTRIN) 800 mg tablet TAKE 1 TABLET BY MOUTH EVERY 8 HOURS NEEDED FOR PAIN No current facility-administered medications on file prior to visit. Social History Social History Tobacco Use Smoking status: Former Current packs/day: 0.00 Average packs/day: 0.5 packs/day for 15.0 years (7.5 ttl pk-yrs) Types: Cigarettes Start date: 09/2004 Quit date: 09/2019 Years since quittin.8 Smokeless tobacco: Never Vaping Use Vaping status: Never Used Substance Use Topics Alcohol use: Yes Alcohol/week: 2.0 standard drinks of alcohol Types: 2 Cans of Beer (12oz) per week Drug use: No Review of Symptoms REVIEW OF SYSTEMS GENERAL: No weight loss, malaise or fevers NECK: Negative for lumps, goiter, pain and significant neck swelling RESPIRATORY: Negative for cough, hemoptysis, wheezing, COPD, dyspnea or shortness of breath CARDIOVASCULAR: Negative for chest pain, leg swelling, hypertension, CHF or palpitations GI: No nausea, vomiting, or diarrhea and No heartburn or reflux symptoms : No history of dysuria, blood ENDOCRINE: Negativ (more content not included)... [facility] 07-09-2024 Telephone encounter Note The following approved medication requests have been transmitted electronically. Requested Prescriptions Signed Prescriptions Disp Refills atorvastatin (LIPITOR) 40 mg tablet 90 tablet 1 Sig: Take 1 tablet by mouth once daily. Garrett Andrews MD [facility] 07-09-2024 Miscellaneous Notes The following approved medication requests have been transmitted electronically. Requested Prescriptions Signed Prescriptions Disp Refills atorvastatin (LIPITOR) 40 mg tablet 90 tablet 1 Sig: Take 1 tablet by mouth once daily. Garrett Andrews MD Prescription Refill Information The patient has been identified by name and date of : Yes Caregiver verified no other encounters exist for this prescription request: Yes Caregiver confirmed with patient/requestor that no other refills are due, in the near future, with this provider at this time: Yes The last office visit in the department: 01/2024 Does the patient have a future office visit with this provider/department: Yes 07/2024 Requested Prescriptions Pending Prescriptions Disp Refills atorvastatin (LIPITOR) 40 mg tablet 90 tablet 1 Sig: Take 1 tablet by mouth once daily. Lexis Bolden MA July 09, 2024 7:46 AM documented in this encounter [facility] 07-09-2024 Telephone encounter Note Prescription Refill Information The patient has been identified by name and date of : Yes Caregiver verified no other encounters exist for this prescription request: Yes Caregiver confirmed with patient/requestor that no other refills are due, in the near future, with this provider at this time: Yes The last office visit in the department: 01/2024 Does the patient have a future office visit with this provider/department: Yes 07/2024 Requested Prescriptions Pending Prescriptions Disp Refills atorvastatin (LIPITOR) 40 mg tablet 90 tablet 1 Sig: Take 1 tablet by mouth once daily. Lexis Bolden MA July 09, 2024 7:46 AM [facility] 05-04-2024 Note HNO ID: [id number] Author: ANCELMO FUENTES OD Service: ? Author Type: FLAMER SEALER Type: Progress Notes Filed: 05/04/2024 10:49 Note Text: 1. Central retinal artery occlusion, left eye - with cilioretinal artery sparing - March 2014 with normal carotid US, TTE, ESR and CRP - no signs of neovascularization at this time Continue to monitor 2. Type 2 diabetes mellitus without complication, without long-term current use of insulin (HCC) Risk of diabetic changes and vision loss can be minimized by tight control of blood sugar, blood pressure, and cholesterol levels. Educated patient to continue care with primary care doctor and/or equipment mechanic specialist to maintain optimum levels as they are important to avoid ocular complications. Encouraged patient to call the office immediately with any changes to vision or visual concerns. Advised to not wait until the next scheduled exam. 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 Hypertensive retinopathy, bilateral Continue regular follow-up with PCP 5. Nuclear sclerosis of both eyes Mild- monitor Follow-up in 1 year or sooner as needed Ancelmo Fuentes, OD May 04, 2024 10:48 AM [facility] 05-04-2024 History of Present illness Narrative 1. Central retinal artery occlusion, left eye - with cilioretinal artery sparing - March 2014 with normal carotid US, TTE, ESR and CRP - no signs of neovascularization at this time Continue to monitor 2. Type 2 diabetes mellitus without complication, without long-term current use of insulin (HCC) Risk of diabetic changes and vision loss can be minimized by tight control of blood sugar, blood pressure, and cholesterol levels. Educated patient to continue care with primary care doctor and/or equipment mechanic specialist to maintain optimum levels as they are important to avoid ocular complications. Encouraged patient to call the office immediately with any changes to vision or visual concerns. Advised to not wait until the next scheduled exam. 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 Hypertensive retinopathy, bilateral Continue regular follow-up with PCP 5. Nuclear sclerosis of both eyes Mild- monitor Follow-up in 1 year or sooner as needed Ancelmo Fuentes, OD May 04, 2024 10:48 AM documented in this encounter [facility] 05-02-2024 Telephone encounter Note Last refill 01/25/24 Qty: 180 with 1 refill. Spoke with Juan J Lopez who confirms refill was picked up on 04/26/24. Advised pt via My Chart and to contact office when he needs refills in Oct. Karin Yeager LPN [facility] 05-02-2024 Miscellaneous Notes Last refill 01/25/24 Qty: 180 with 1 refill. Spoke with Juan J Lopez who confirms refill was picked up on 04/26/24. Advised pt via My Chart and to contact office when he needs refills in Jun. Karin Yeager LPN documented in this encounter [facility] 01-26-2024 Telephone encounter Note Pt notified. Arianna Gurrola MA [facility] 01-26-2024 Miscellaneous Notes Pt notified. Arianna Gurrola MA Let patient know thathis A1c is at 6.2%. this is up compared to previous but overall stable. Continue to watch diet and increase exercise. Trigs were elevated at time of lab draw. Decrease fatty food intake. LDL otherwise normal. PSA normal. Urine normal. Cbc normal. documented in this encounter [facility] 01-26-2024 Telephone encounter Note Let patient know thathis A1c is at 6.2%. this is up compared to previous but overall stable. Continue to watch diet and increase exercise. Trigs were elevated at time of lab draw. Decrease fatty food intake. LDL otherwise normal. PSA normal. Urine normal. Cbc normal. [facility] 01-25-2024 Instructions Noemi Dickens PA-C - 01/25/2024 12:49 PM EDT Check with insurance on coverage for shingles vaccine and if can get at Dr. Office or pharmacy. Also consider RSV vaccine for this coming fall. Can try OTC ear wax removal. If any issues or not feeling like things are improving, schedule visit with us to try. documented in this encounter [facility] 01-25-2024 History of Present illness Narrative Chief Complaint Patient presents with: Yearly Exam HPI Breezy Smith is a 63 year old male who presents here today for physical. Patient with hx of DM2, HTN, hyperlipidemia, former smoker and those as below. Patient denies concerns today. Past medical history, appointments, medications, allergies reviewed. 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 Mild concentric left ventricular hypertrophy (LVH) 04/16/2014 Senile nuclear sclerosis 04/03/2014 Type 2 diabetes mellitus without complication, without long-term current use of insulin (HCC) 10/16/2017 a1c 6.5% oct 2020 Ulnar neuropathy of left upper extremity 09/10/2019 Previous Surgical History PAST SURGICAL HISTORY Procedure Laterality Date 2-D ECHO (TTE); COMPLETE 04/15/2014 EF=55%, mild concentric LVH and diastolic dysfunction TONSILLECTOMY HX Bilateral 1967 US CAROTID 03/28/2014 IC WNL, right carotid bulb mod stenosis near origin of Rt EC Family History FAMILY HISTORY Problem Relation Age of Onset No Ocular Disease Father Cancer Father Diabetes Father Hypertension Father No Ocular Disease Mother Cancer Mother Hypertension Mother Cataract Sister Diabetes Sister Hypertension Sister No Ocular Disease Brother Cancer Brother Hypertension Brother No Ocular Disease Maternal Grandmother Hypertension Maternal Grandmother Cataract Maternal Grandfather Cancer Maternal Grandfather Hypertension Maternal Grandfather No Ocular Disease Paternal Grandmother Hypertension Paternal Grandmother No Ocular Disease Paternal Grandfather Hypertension Paternal Grandfather No Ocular Disease Brother Cancer Brother Hypertension Brother Patient Allergies ALLERGIES Allergen Reactions Bees Anaphylaxis Wasps Anaphylaxis Penicillins Other: See Comments Pt states took when young just made him real sick Current Medications Current Outpatient Medications on File Prior to Visit Medication Sig atorvastatin (LIPITOR) 40 mg tablet Take 1 tablet by mouth once daily. ibuprofen (MOTRIN) 800 mg tablet TAKE 1 TABLET BY MOUTH EVERY 8 HOURS NEEDED FOR PAIN No current facility-administered medications on file prior to visit. Social History Social History Tobacco Use Smoking status: Former Packs/day: 0.50 Years: 15.00 Additional pack years: 0.00 Total pack years: 7.50 Types: Cigarettes Quit date: 09/2019 Years since quittin.3 Smokeless tobacco: Never Vaping Use Vaping Use: Never used Substance Use Topics Alcohol use: Yes Alcohol/week: 2.0 standard drinks of alcohol Types: 2 Cans of Beer (12oz) per week Drug use: No Review of Symptoms REVIEW OF SYSTEMS GENERAL: No weight loss, malaise or fevers HEENT: Negative for frequent or significant headaches, No changes in hearing or vision, no nose bleeds or other nasal problems NECK: Negative for lumps, goiter, pain and significant neck swelling RESPIRATORY: Negative for cough, hemoptysis, wheezing, COPD, dyspnea or shortness of breath CARDIOVASCULAR: Negative for chest pain, leg swelling, hypertension, CHF or palpitations GI: Negative for abdominal discomfort, blood in stools or black stools, change in bowel habit, heart burn, nausea, vomiting : No history of dysuria, frequency or incontinence MUSCULOSKELETAL: Negative for joint pain or swelling, back pain or muscle pain SKIN: Negative for lesions, rash, and itching PSYCH: Negative for sleep disturbance, mood disorder and recent psychosocial stressors HEMATOLOGY/LYMPHOLOGY: Negative for prolonged bleeding, bruising easily or swollen nodes ENDOCRINE: Negative for cold or heat intolerance, polyuria, polydipsia and goiter NEURO: No history of headaches, syncope, paralysis, seizures or tremors EXAM: BP 136/78 Pulse 66 Resp 16 Ht 171 cm (5' 7.32) Wt 98.1 kg (216 lb 3.2 oz) SpO2 95% BMI 33.54 kg/m General Appearance: Well appearing, alert, in no acute distress, well-hydrated, well nourished. and Obese. Skin: scaling noted with erythema on scalp, behind ears and on wolf line. no suspicious rashes or lesions on exposed skin. Head: Normocephalic, no masses, lesions, tenderness or abnormalities. Eyes: Anicteric sclera. Pupils are equally round and reactive to light. Extraocular movements are intact. . Ears: cerumen present. Nose/Sinuses: Nares normal, septum midline, mucosa normal, no drainage or sinus tenderness. Oropharynx: Lips, mucosa, and tongue normal, teeth and gums normal, oropharynx normal. Neck: Supple, no adenopathy; thyroid symmetric, normal size, no bruits. Lungs: Lungs clear to auscultation. No wheezing, rhonchi, rales.. Heart: RRR without murmur, gallop, or rubs. No ectopy. Abdomen: Normal abdominal exam, Abdomen soft, non-tender. Bowel sounds normal. No masses, organomegaly. Extremities: No deformities, edema, skin discoloration, clubbing or cyanosis. Good capillary refill. . Peripheral Pulses: Normal. Neurologic: Gait normal. Reflexes normal and symmetric. Sensation grossly intact.. Feet:Shoes and socks removed, No deformities, ulcers, calluses, normal distal pulses, sensitive to 10 gm monofilament, vibratory perception normal, and nails notable for Hypertrophic or Yellowish Health Maintenance List Shingrix Vaccine(1 of 2) Never done RSV Vaccine(1 - 1-dose 60+ series) Never done Behavioral Health Screening Never done Diabetic Foot Exam due on 12/11/2023 BP Controlled (<130/80) due on 12/11/2023 Dilated Retinal Exam due on 12/14/2023 Urine Albumin:Creatinine Ratio due on 01/18/2024 HbA1C due on 02/07/2024 LDL Cholesterol due on 08/09/2024 Annual PCP Team Chronic Disease Visit due on 09/07/2024 DTaP,Tdap,Td Vaccine(2 - Td or Tdap) due on 06/10/2027 Prostate Cancer Screening Discussion due on 12/11/2027 Influenza Vaccine Completed Pneumococcal Vaccine Completed Colorectal Cancer Screening Discontinued Hepatitis C Screening Discontinued HIV Screening Discontinued Covid-19 Vaccine Discontinued Data reviewed N/a ASSESSMENT/PLAN: 1. Well adult exam - ICD9: V70.0, ICD10: Z00.00 (primary diagnosis) - Counseled on healthy diet and regular exercise - Discussed need for and benefit of weight loss. BMI 33.54 kg/(m^2) - Colorectal cancer screening recommended - screening declined 2. Type 2 diabetes mellitus without complication, without long-term current use of insulin (HCC) - ICD9: 250.00, ICD10: E11.9 - Control undetermined, due for labs - Continue current medications - Statin prescribed - atorvastatin - Counseled on healthy diet and regular exercise - Discussed need for and benefit of weight loss. BMI 33.54 kg/(m^2) - CONSULT TO OPHTHALMOLOGY - HEMOGLOBIN A1C 3. Essential hypertension - ICD9: 401.9, ICD10: I10 - Controlled - Continue current medications - Recommend home blood pressure monitoring, to bring results to next visit - Encouraged sodium restriction, DASH or Mediterranean diet - Recommend regular aerobic exercise 4. Dyslipidemia - ICD9: 272.4, ICD10: E78.5 - Control undetermined, due for labs - Continue current medications - Counseled on healthy diet and regular exercise - LIPID PANEL, NONFASTING 5. DESIRE (generalized anxiety disorder) - ICD9: 300.02, ICD10: F41.1 stable 6. ED (erectile dysfunction) of organic origin - ICD9: 607.84, ICD10: N52.9 No new issues 7. Ex-smoker - ICD9: V15.82, ICD10: Z87.891 8. Screening for colon cancer - ICD9: V76.51, ICD10: Z12.11 Patient declines. Requests to take it off his health maintenance list. He will let us know if he changes his mind 9. Seborrheic dermatitis of scalp - ICD9: 690.18, ICD10: L21.9 Will start ketoconazole shampoo. Noemi Dickens PA-C documented in this encounter [facility] 01-09-2024 Miscellaneous Notes Patient has been identified by name and date of : Yes, Provider Dr Andrews Date 01/09/2024 Time 8:45 am Requested Prescriptions Pending Prescriptions Disp Refills atorvastatin (LIPITOR) 40 mg tablet 90 tablet 1 Sig: Take 1 tablet by mouth once daily. RX INSTRUCTIONS: Patient aware RX will be sent to pharmacy. No need to notify patient. Lexis Bolden MA Isabella 07/2023 Nov 01/25/2024 Last refill; 06/2023 documented in this encounter [facility] 09-07-2023 History of Present illness Narrative CC: Patient presents with: Follow Up: Pulled muscle - back pain HPI Breezy Smith is a 62 year old male who presents today for above. Patient presented to [facility] ER on 09/01 for a three day history of severe left sided back pain. No diagnostic testing was performed. Pain attributed to muscle strain and he was treated with hydrocodone and ibuprofen. Severe pain persisted for a few more days after that so PCP prescribed Valium in addition to the hydrocodone. Today patient reports he has been virtually pain free for the past two days. There are no new or worsening symptoms. He is not longer taking pain medication. Denies any other concerns today. Review of Systems Constitutional: Negative for chills and fever. Respiratory: Negative for cough, shortness of breath and wheezing. Cardiovascular: Negative for chest pain and palpitations. Gastrointestinal: Negative for abdominal pain. PAST MEDICAL HISTORY Diagnosis Date Amaurosis fugax 04/03/2014 left Arthritis of lumbar spine 05/01/2020 Carpal tunnel syndrome, left 09/10/2019 Central artery occlusion of retina Central artery occlusion of retina 12/08/2016 Dyslipidemia 11/26/2014 ED (erectile dysfunction) of organic origin 01/24/2019 Essential hypertension 12/08/2016 Ex-smoker 12/10/2022 DESIRE (generalized anxiety disorder) 2014 History of amaurosis fugax 04/03/2014 left History of COVID-19 09/29/2021 09/24/2021 Hypertensive retinopathy 12/08/2016 Left ventricular diastolic dysfunction with preserved systolic function 04/16/2014 Leg cramp 06/02/2017 left lateral calf. Mild concentric left ventricular hypertrophy (LVH) 04/16/2014 Senile nuclear sclerosis 04/03/2014 Type 2 diabetes mellitus without complication, without long-term current use of insulin ([facility]) 10/16/2017 a1c 6.5% oct 2020 Ulnar neuropathy of left upper extremity 09/10/2019 PAST SURGICAL HISTORY Procedure Laterality Date 2-D ECHO (TTE); COMPLETE 04/15/2014 EF=55%, mild concentric LVH and diastolic dysfunction TONSILLECTOMY HX Bilateral 1967 US CAROTID 03/28/2014 IC WNL, right carotid bulb mod stenosis near origin of Rt EC ALLERGIES Bees, Wasps, and Penicillins MEDICATIONS HYDROcodone-Acetaminophen (NORCO) 7.5-325 mg per tablet Take 1-2 tabs every 8 hrs as crow for back pain diazePAM (VALIUM) 2 mg tablet Take 1 tablet by mouth every 12 hours as needed (low back pain) for up to 7 days. amLODIPine (NORVASC) 5 mg tablet Take 1 tablet by mouth once daily. metoprolol succinate ER (TOPROL XL) 100 mg Take one daily with the 200 mg strength for total of 300 mg a day metoprolol succinate ER (TOPROL XL) 200 mg 24 hr tablet Take one tab a day with 100 mg dose for total of 300 mg a day. PARoxetine (PAXIL) 10 mg tablet Take 1 tablet by mouth once daily. triamterene-hydroCHLOROthiazide (DYAZIDE) 37.5-25 mg per capsule Take 1 capsule by mouth once daily. lisinopril (ZESTRIL) 40 mg tablet Take 1 tablet by mouth two times a day. atorvastatin (LIPITOR) 40 mg tablet Take 1 tablet by mouth once daily. ibuprofen (MOTRIN) 800 mg tablet TAKE 1 TABLET BY MOUTH EVERY 8 HOURS NEEDED FOR PAIN FAMILY HISTORY Problem Relation Age of Onset No Ocular Disease Father Cancer Father Diabetes Father Hypertension Father No Ocular Disease Mother Cancer Mother Hypertension Mother Cataract Sister Diabetes Sister Hypertension Sister No Ocular Disease Brother Cancer Brother Hypertension Brother No Ocular Disease Maternal Grandmother Hypertension Maternal Grandmother Cataract Maternal Grandfather Cancer Maternal Grandfather Hypertension Maternal Grandfather No Ocular Disease Paternal Grandmother Hypertension Paternal Grandmother No Ocular Disease Paternal Grandfather Hypertension Paternal Grandfather No Ocular Disease Brother Cancer Brother Hypertension Brother Social History Tobacco Use Smoking status: Former Packs/day: 0.50 Years: 15.00 Additional pack years: 0.00 Total pack years: 7.50 Types: Cigarettes Quit date: 09/2019 Years since quittin.9 Smokeless tobacco: Never Vaping Use Vaping Use: Never used Substance Use Topics Alcohol use: Yes Alcohol/week: 2.0 standard drinks of alcohol Types: 2 Cans of Beer (12oz) per week Drug use: No BP 132/80 Pulse 61 Resp 18 Wt 96.6 kg (213 lb) SpO2 97% BMI 32.63 kg/m Physical Exam Vitals reviewed. Constitutional: General: He is not in acute distress. Appearance: He is not ill-appearing. Cardiovascular: Rate and Rhythm: Normal rate and regular rhythm. Heart sounds: Normal heart sounds. Pulmonary: Effort: Pulmonary effort is normal. Breath sounds: Normal breath sounds. Musculoskeletal: Thoracic back: No swelling, deformity, spasms, tenderness or bony tenderness. Normal range of motion. Neurological: Mental Status: He is alert. DATA REVIEWED: Outside chart from [facility] ER reviewed. ASSESSMENT/PLAN: 1. Muscle strain of left upper back, subsequent encounter - ICD9: V58.89, 847.1, ICD10: S29.012D Pain has almost completely resolved, no longer requiring pain medications. No new or worsening symptoms. Follow-up in the office as needed for any reoccurring symptoms. Prescription instructions reviewed with patient as applicable. Potential red flag symptoms discussed with the patient. Reviewed appropriate action plan to take if red flag symptoms occur. Patient agreeable to treatment plan. Lucia Huitron APRN.METEOROLOGY TEACHER documented in this encounter [facility] 09-05-2023 Miscellaneous Notes The following approved medication requests have been transmitted electronically. Requested Prescriptions Signed Prescriptions Disp Refills HYDROcodone-Acetaminophen (NORCO) 7.5-325 mg per tablet 42 tablet 0 Sig: Take 1-2 tabs every 8 hrs as crow for back pain diazePAM (VALIUM) 2 mg tablet 14 tablet 0 Sig: Take 1 tablet by mouth every 12 hours as needed (low back pain) for up to 7 days. Garrett Andrews MD This note was from another [employer] message. I also wanted to tell you you take one every 6 hours one usually last about 5 hours and then it starts to wear off. Also could it be more than just a pulled muscle I have never had one hurt this bad in my life. Lexis Bolden MA documented in this encounter [facility] 09-02-2023 History of Present illness Narrative Scan on 09/02/2023 12:03 AM by Provider, RADHA Lyon: Consultation - Emergency Medicine documented in this encounter [facility] 09-01-2023 Discharge summary Note Date/Time September 01, 2023 11:57pm [facility] Medical Records Department [address] [place] [address] Emergency Department Summary 09/01/23 MR#: [id number] Acct: [id number] Name: BREEZY SMITH Rep #:[id number] : 1960 62 From: Chris Gorman MD PCP: Dr. Garrett Andrews MD Status:PRE ER Location: ED HPI History of Present Illness Chief Complaint: Back Detail of Chief Complaint: Left-sided back pain over the latissimus dorsi muscle. Informant: patient Onset/Context/Timing Onset: Days (Onset this past August 27) Context: Sudden Onset Chronic pain exacerbated by: Not applicable Injury: - (No injury the patient is aware of) Timing: Intermittent (Documented HPI narrative) Quality: Dull Location: Thoracic Current Severity: Mild Maximum Severity: Moderate Worsened by: improves with Movement, Bending and Lifting; worse with Ambulation or Night time pain Relieved by: Nothing (Initially ibuprofen now nothing) Associated Symptoms Associated Symptoms: Negative for Numbness, Tingling, Radiation to Right Leg, Radiation to Left Leg, Fever, Abdominal Pain, Dysuria, Unable to Ambulate, Unable to Transfer, Urinary Retention, Urinary Incontinence, Constipation or Fecal Incontinence Narrative Narrative: Patient is a 62-year-old male who lives alone. He presents with left-sided backpain over the latissimus dorsi muscle. Movement of his arm and torso increases pain. Nothing alleviates his pain presently. He states Tuesday evening he took several ibuprofen tablets that he was prescribed by his PCP. Tuesday upon awakening he was pain-free. He now presents because the pain has gotten worse and not improving with ibuprofen. He denies fever, chills night sweats. He denies recent upper respiratory symptoms. He denies history of VTE. He denies leg pain, swelling or discoloration. He denies dyspnea or dyspnea on exertion. He denies abdominal pain, nausea, vomiting or diarrhea. Denies constipation. He denies history of trauma. He has not noted a rash. Prior similar symptoms: No Recent Illness/Hospitalization: No PFSH PFSH Medical History Arthritis Chronic neck and back pain HTN (hypertension) Shoulder pain Stroke Home Medications Lisinopril 40 mg PO BID 05/11/17 [History Last Taken Unknown] Metoprolol Tartrate 200 mg PO BREAKFAST 05/11/17 [History Last Taken Unknown] hydrochlorothiazide 25 mg tablet 25 mg PO DAILY 05/11/17 [History Last Taken Unknown] paroxetine HCl 10 mg tablet (Paxil) 10 mg PO DAILY 05/11/17 [History Last Taken Unknown] hydrocodone-acetaminophen 5-325mg 5mg-325mg 1 tab PO Q6H PRN PRN Pain 3 days #10TABLETS 09/01/23 [Rx Last Taken Unknown] Allergy/AdvReac Type Severity Reaction Status Date / Time Penicillins Allergy Unknown Verified 09/01/23 23:32 Family History Other Hypertension Social History (Updated 09/01/23 @ 23:[address] Chris Gorman MD) household members: none Smoking Status: Current every day smoker tobacco type: cigarettes alcohol intake: never ROS ROS ED Constitutional Constitutional ED: Denies chills, fever(s), subjective or sweats Cardiovascular Cardiovascular: Denies chest pain, orthopnea, palpitations, paroxysmal nocturnaldyspnea or racing heartbeat Respiratory/Chest Respiratory/Chest: Reports other Details: He denies pleuritic pain. ; Denies dyspnea, dyspnea on exertion, orthopnea, paroxysmal nocturnal dyspnea or sputum Gastrointestinal Gastrointestinal: Denies abdominal pain, constipation, diarrhea, melena, nausea or vomiting Genitourinary Genitourinary ED: Denies dysuria, hematuria or urinary frequency Musculoskeletal Musculoskeletal: Reports back pain; Denies arthralgias, myalgias or neck pain Integumentary Denies rash Hematologic/Lymphatic Hematologic/Lymphatic: Denies easy bleeding or easy bruising EXAM Physical Exam Const Vital Signs: 09/01/23 23:32 Temperature 97.9 F Temperature Source Temporal Pulse Rate 77 Respiratory Rate 18 Blood Pressure 150/92 H Blood Pressure Mean 111 Pulse Ox 98 Oxygen Delivery Method Room Air Positive well nourished, well developed and obese General Appearance ED: well developed and NAD; Negative for pallor Nutritional Appearance: obese HEENT Reports moist mucous membranes HEENT Narrative: Head is atraumatic normocephalic. Ears reveal dry skin. Nares patent. Eyes PERRL and EOMs intact bilaterally General Eye ED: Negative for pale conjunctiva or scleral icterus Neck no lymphadenopathy, supple and no JVD Resp normal respiratory effort and clear to auscultation bilaterally Resp Narrative: He does have pain ovation over the left latissimus dorsi muscle. Having him pulled down against resistance because of discomfort. Having him push and pull against resistance also causes some discomfort. Pain is reproducible. Cardio regular rate, regular rhythm, S1 normal heart sound, S2 normal heart sound and no murmurs GI normal to inspection, nondistended, normoactive bowel sounds, soft to palpation,non-tender, non-distended and no masses Back/Spine normal to inspection; Negative for no thoracic nor lumbar tenderness General Back: CVA tenderness; Negative for scar(s) Cervical Spine: Negative for cervical spine tenderness Lumbar Spine / Lower Back: Negative for ROM limited Extremity normal to inspection and no clubbing, cyanosis or edema Neuro oriented x3 and no sensory deficits noted Sensorium / Orientation: alert Psych mental status grossly normal Skin no rashes or lesions noted and no wounds General Skin Exam: Negative for jaundice or pallor MDM MDM MDM Narrative Medical decision making narrative: Patient has muscular pain that was initially alleviated with ibuprofen. He presents now because he is not getting relief. Pain is reproducible and worse with movement. Since he drove himself he was given a prescription for Arab which she can take at home. He also was encouraged apply ice. If he has no improvement after 2 to 3 days she follow-up with his PCP. He does have history of chronic back pain. Per prior records he has no contraindication to NSAIDs. History & Record Review Additional record(s) reviewed:: Prior ED visit and Prior labs Treatment and Re-Evaluation Narrative: Since patient drove himself and he already has already taken 800 mg ibuprofen hewas prescribed Arab. Discharge Plan Triage Chief Complaint: Back ED Provider: Chris Gorman Dx/Rx/DC Orders Clinical Impression: Strain of latissimus dorsi muscle Instructions: ED Back Sprain/Strain Prescriptions: New hydrocodone-acetaminophen [hydrocodone-acetaminophen] 5-325 mg tablet 1 tab PO Q6H PRN PRN (Reason: Pain) 3 Days Qty: 10 0RF No Action hydrochlorothiazide 25 MG tablet 25 mg PO DAILY Lisinopril 40 mg PO BID Metoprolol Tartrate 200 mg PO BREAKFAST paroxetine HCl [Paxil] 10 MG tablet 10 mg PO DAILY Primary Care Provider: Garrett Andrews Referrals: Garrett Andrews MD [Primary Care Provider] - 3-5 Days if not improving Activity Restrictions/Additional Instructions: 1. Apply ice to your back 6-10 times a day 2. Continue taking the ibuprofen you were prescribed by your doctor 3. Take the hydrocodone as instructed. Disposition Disposition: Home, Self Care What to do if you have Problems For any increased pain, shortness of breath, bleeding, nausea or vomiting, chestpain, or any unexpected problems, contact your Primary Care Provider. Call [facility] ([phone]) or report to the closest Emergency Room. Call 911 if necessary. 09/01/23 [id number] <Electronically signed by Chris Gorman MD> Cosigner Signature (if applicable): CC: Dr. Garrett Andrews MD ~ Signed [facility] Work Phone: 1(118) 954-338311-15-2023 Miscellaneous Notes* Telephone Encounter - Karin Yeager LPN - 08/10/2023 4:18 PM EST Patient notified of results and provider's instructions. Patient verbalizes understanding. Karin Yeager LPN * Telephone Encounter - Garrett Andrews MD - 08/10/2023 3:04 PM EST Let patient know A1c is good at 6%. His lipid panel was ok except for his good cholesterol being low and increased exercise can help. [facility] Instructions* Patient Instructions* Garrett Andrews MD - 08/09/2023 11:47 AM EST Please get labs and urine test done on or after 01/27/2024 prior to your next visit. [facility] History of Present illness Narrative* Garrett Andrews MD - 08/09/2023 11:03 AM EST Chief Complaint Patient presents with: F/U 6 months HPI Breezy Smith is a 62 year old male who presents here today for 6 month follow up. Patient with Hx of HTN, Hyperlipidemia, elevated A1c, DESIRE, LVH, Hx of central artery occlusion, ED as well as those reviewed and addressed below and in ROS. Patient has been doing well. No new issues or concerns. Just retired. How is jail? 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 [place] that. Any other concerns today? No concerns. Past medical history, appointments, medications, allergies reviewed. 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 Mild concentric left ventricular hypertrophy (LVH) 04/16/2014 Senile nuclear sclerosis 04/03/2014 Type 2 diabetes mellitus without complication, without long-term current use of insulin (HCC) 10/16/2017 a1c 6.5% oct 2020 Ulnar neuropathy of left upper extremity 09/10/2019 Previous Surgical History PAST SURGICAL HISTORY Procedure Laterality Date 2-D ECHO (TTE); COMPLETE 04/15/2014 EF=55%, mild concentric LVH and diastolic dysfunction TONSILLECTOMY HX Bilateral 1968 US CAROTID 03/28/2014 IC WNL, right carotid bulb mod stenosis near origin of Rt EC Family History FAMILY HISTORY Problem Relation Age of Onset No Ocular Disease Father Cancer Father Diabetes Father Hypertension Father No Ocular Disease Mother Cancer Mother Hypertension Mother Cataract Sister Diabetes Sister Hypertension Sister No Ocular Disease Brother Cancer Brother Hypertension Brother No Ocular Disease Maternal Grandmother Hypertension Maternal Grandmother Cataract Maternal Grandfather Cancer Maternal Grandfather Hypertension Maternal Grandfather No Ocular Disease Paternal Grandmother Hypertension Paternal Grandmother No Ocular Disease Paternal Grandfather Hypertension Paternal Grandfather No Ocular Disease Brother Cancer Brother Hypertension Brother Patient Allergies ALLERGIES Allergen Reactions Bees Anaphylaxis Wasps Anaphylaxis Penicillins Other: See Comments Pt states took when young just made him real sick Current Medications Current Outpatient Medications on File Prior to Visit Medication Sig atorvastatin (LIPITOR) 40 mg tablet Take 1 tablet by mouth once daily. amLODIPine (NORVASC) 5 mg tablet Take 1 tablet by mouth once daily. ibuprofen (MOTRIN) 800 mg tablet TAKE 1 TABLET BY MOUTH EVERY 8 HOURS NEEDED FOR PAIN metoprolol succinate ER (TOPROL XL) 100 mg Take one daily with the 200 mg strength for total of 300mg a day metoprolol succinate ER (TOPROL XL) 200 mg 24 hr tablet Take one tab a day with 100 mg dose for total of 300 mg a day. PARoxetine (PAXIL) 10 mg tablet Take 1 tablet by mouth once daily. triamterene-hydroCHLOROthiazide (DYAZIDE) 37.5-25 mg per capsule Take 1 capsule by mouth once daily. lisinopril (ZESTRIL) 40 mg tablet Take 1 tablet by mouth twice daily. sildenafil (REVATIO) 20 mg tablet Take 2-5 tablets by mouth as needed. Take only once in 24 hour period. No current facility-administered medications on file prior to visit. Social History Social History Tobacco Use Smoking status: Former Packs/day: 0.50 Years: 15.00 Additional pack years: 0.00 Total pack years: 7.50 Types: Cigarettes Quit date: 09/2019 Years since quittin.8 Smokeless tobacco: Never Vaping Use Vaping Use: Never used Substance Use Topics Alcohol use: Yes Alcohol/week: 5.0 standard drinks of alcohol Types: 2 Cans of Beer (12oz) per week Drug use: No Review of Symptoms REVIEW OF SYSTEMS GENERAL: No weight loss, malaise or fevers NECK: Negative for lumps, goiter, pain and significant neck swelling RESPIRATORY: Negative for cough, hemoptysis, wheezing, COPD, dyspnea or shortness of breath CARDIOVASCULAR: Negative for chest pain, leg swelling, hypertension, CHF or palpitations GI: No nausea, vomiting, or diarrhea and No heartburn or reflux symptoms : No history of dysuria, frequency or blood PSYCH: Negative for sleep disturbance, mood disorder and recent psychosocial stressors ENDOCRINE: Negative for symptoms of low BS's NEURO: No history of headaches, syncope, paralysis, seizures or tremors EXAM: BP 128/86 (BP Site: Left Arm, BP Position: Sitting, BP Cuff Size: Large Adult) Pulse 60 Resp 16 Wt 97.1 kg (214 lb) BMI 32.78 kg/m BP 122/72 Pulse 60 Resp 16 Wt 97.1 kg (214 lb) BMI 32.78 kg/m Last 4 Encounter Wt Readings: Date: Wt: 08/09/2023 97.1 kg (214 lb) 12/10/2022 95.3 kg (210 lb) 10/25/2022 96.2 kg (212 lb) 05/28/2022 90.7 kg (200 lb) General Appearance: Well appearing, alert, in no acute distress, well-hydrated, well nourished.. Eyes: Anicteric sclera. Pupils are equally round and reactive to light. Extraocular movements are intact. . Neck: Supple, no adenopathy; thyroid symmetric, normal size, no bruits. Lungs: Lungs clear to auscultation. No wheezing, rhonchi, rales.. Heart: RRR without murmur, gallop, or rubs. No ectopy. Abdomen: Normal abdominal exam, Abdomen soft, non-tender. Bowel sounds normal. No masses, organomegaly. Extremities: No deformities, edema, skin discoloration, Good capillary refill. . Musculoskeletal: Muscular strength intact, No joint swelling, deformity, or tenderness. Peripheral Pulses: Normal. Neurologic: Gait normal. Reflexes normal and symmetric. Sensation to light touch and crainal nerves2-12 intact.. Health Maintenance List Colorectal Cancer Screening Never done Hepatitis B Vaccine(1 of 3 - Risk 3-dose series) Never done RSV Vaccine(1 - 1-dose 60+ series) Never done Influenza Vaccine(1) due on 05/27/2023 HbA1C due on 06/12/2023 Shingrix Vaccine(1 of 2) due on 12/11/2023 Covid-19 Vaccine(1) due on 12/11/2023 LDL Cholesterol due on 12/11/2023 Diabetic Foot Exam due on 12/11/2023 Annual PCP Team Chronic Disease Visit due on 12/11/2023 BP Controlled (<130/80) due on 12/11/2023 Dilated Retinal Exam due on 12/14/2023 Urine Albumin:Creatinine Ratio due on 01/18/2024 DTaP,Tdap,Td Vaccine(2 - Td or Tdap) due on 06/10/2027 Prostate Cancer Screening Discussion due on 12/11/2027 Depression Assessment Completed Pneumococcal Vaccine Completed Hepatitis C Screening Discontinued HIV Screening Discontinued Data reviewed A/P ASSESSMENT/PLAN: 1. Type 2 diabetes mellitus without complication, without long-term current use of insulin (HCC) - ICD9: 250.00, ICD10: E11.9 (primary diagnosis) - await labs to eval control. - Counseled on healthy diet and regular exercise - Discussed need for and benefit of weight loss. BMI 32.78 kg/(m^2) - managed through diet at this point. Check - HGB A1C 2. Essential hypertension - ICD9: 401.9, ICD10: I10 - Controlled - Continue current medications - Recommend home blood pressure monitoring, to bring results to next visit - Encouraged sodium restriction, DASH or Mediterranean diet - Recommend regular aerobic exercise - LIPID PANEL, NONFASTING 3. Dyslipidemia - ICD9: 272.4, ICD10: E78.5 - await labs - Continue current medications - Counseled on healthy diet and regular exercise - LIPID PANEL, NONFASTING 4. Mild concentric left ventricular hypertrophy (LVH) - ICD9: 429.3, ICD10: I51.7 - cont maximization of lipid and BP control. 5. DESIRE (generalized anxiety disorder) - ICD9: 300.02, ICD10: F41.1 - stable with Tx. 6. Encounter for immunization - ICD9: V03.89, ICD10: Z23 - INFLUENZA VACCINE, AGE 6 MO - 64 YR, QUADRIVALENT (AFLURIA, FLULAVAL, FLUZONE): given Requested Prescriptions Signed Prescriptions Disp Refills amLODIPine (NORVASC) 5 mg tablet 90 tablet 1 Sig: Take 1 tablet by mouth once daily. metoprolol succinate ER (TOPROL XL) 100 mg 90 tablet 1 Sig: Take one daily with the 200 mg strength for total of 300 mg a day metoprolol succinate ER (TOPROL XL) 200 mg 24 hr tablet 90 tablet 1 Sig: Take one tab a day with 100 mg dose for total of 300 mg a day. PARoxetine (PAXIL) 10 mg tablet 90 tablet 1 Sig: Take 1 tablet by mouth once daily. triamterene-hydroCHLOROthiazide (DYAZIDE) 37.5-25 mg per capsule 90 capsule 1 Sig: Take 1 capsule by mouth once daily. lisinopril (ZESTRIL) 40 mg tablet 180 tablet 1 Sig: Take 1 tablet by mouth two times a day. F/u 6 months WAE check CMP, Lipid, UA, A1c, urine micro albumin, CBC, PSA prior Garrett Andrews MD documented [facility] Miscellaneous Notes* Telephone Encounter - Garrett Andrews MD - 07/08/2023 8:46 AM EDT The following approved medication requests have been transmitted electronically. Requested Prescriptions Signed Prescriptions Disp Refills atorvastatin (LIPITOR) 40 mg tablet 90 tablet 1 Sig: Take 1 tablet by mouth once daily. Authorizing Provider: GARRETT ANDREWS MD * Telephone Encounter - Veronique Silva - 07/08/2023 8:38 AM EDT Patient has been identified by name and date of : Yes Requested Prescriptions Pending Prescriptions Disp Refills atorvastatin (LIPITOR) 40 mg tablet 90 tablet 1 Sig: Take 1 tablet by mouth once daily. ISABELLA:12/10/22 NOV:08/09/23 RX INSTRUCTIONS: Patient aware RX will be sent to pharmacy. No need to notify patient. Veronique Silva documented [facility]08-[facility]23 Miscellaneous Notes* Telephone Encounter - Lexis Bolden MA - 05/16/2023 7:48 AM EDT Patient has been identified by name and date of : Yes Requested Prescriptions Pending Prescriptions Disp Refills amLODIPine (NORVASC) 5 mg tablet 90 tablet 1 Sig: Take 1 tablet by mouth once daily. RX INSTRUCTIONS: Patient aware RX will be sent to pharmacy. No need to notify patient. Lexis Bolden MA [facility] 11/2022 Patient needs scheduled for 6 month routine with Tip. Last refill; 11/2022 documented in [facility]Paul[facility]04-05-2023 Miscellaneous Notes* Telephone Encounter - Ludmila Cooper LPN - 12/29/2022 8:53 AM EDT Pt calling and tried to do Urine test and was turned away d/t no order. I called down to lab order is in there Pt. will come back in ;the next day or two. documented in [facility] encounterPaul[facility]03-28-2023 Miscellaneous Notes* Telephone Encounter - Kylie Painting Ma - 12/21/2022 8:36 AM EDT Left detailed message on confidential vm Kylie Painting Ma * Telephone Encounter - Garrett Andrews MD - 12/20/2022 8:47 PM EDT Let patient know he still needs to complete his urine albumin test and stool test. His regular UA, CBC, prostate test, electrolytes, liver and kidney functions and A1c were all good. Lipid panel showed Trigs slightly elevated at 172 (goal<150), HDL good at 43 and LDL good at 68.Working on less fat in diet can help lower Trigs. documented in [facility] encounterPaul[facility]03-20-2023 History of Present illness Narrative* Ancelmo Fuentes, OD - 12/13/2022 1:37 PM EDT 1. Central retinal artery occlusion, left eye - with cilioretinal artery sparing - March 2014 with normal carotid US, TTE, ESR and CRP - no signs of neovascularization at this time 2. Type 2 diabetes mellitus without retinopathy (HCC) Risk of diabetic changes and vision loss can be minimized by tight control of blood sugar, blood pressure, and cholesterol levels. Educated patient to continue care with primary care doctor and/or equipment mechanic specialist to maintain optimum levels as they are important to avoid ocular complications. Encouraged patient to call the office immediately with any changes to vision or visual concerns. Advised to not wait until the next scheduled exam. 3. 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 Hypertensive retinopathy, bilateral Continue good control 5. Nuclear sclerosis of both eyes Mild-monitor Follow-up in 1 year or sooner as needed Ancelmo Fuentes, OD December 13, 2022 1:37 PM documented in [facility] encounterPaul[facility]03-17-2023 History of Present illness Narrative* aGrrett Andrews MD - 12/10/2022 11:52 AM EDT Images from the original note were not included. Chief Complaint Patient presents with: Physical HPI Breezy Smith is a 62 year old male who presents here today for Physical. Patient with Hx of HTN, Hyperlipidemia, elevated A1c, DESIRE, LVH, Hx of central artery occlusion, ED as well as those reviewed and addressed below and in ROS. Patient has been doing well. No new issues or concerns. Just retired. Past medical history, appointments, medications, allergies reviewed. 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 Mild concentric left ventricular hypertrophy (LVH) 04/16/2014 Senile nuclear sclerosis 04/03/2014 Type 2 diabetes mellitus without complication, without long-term current use of insulin (HCC) 10/16/2017 a1c 6.5% oct 2020 Ulnar neuropathy of left upper extremity 09/10/2019 Previous Surgical History PAST SURGICAL HISTORY Procedure Laterality Date 2-D ECHO (TTE); COMPLETE 04/15/2014 EF=55%, mild concentric LVH and diastolic dysfunction TONSILLECTOMY HX Bilateral 1967 US CAROTID 03/28/2014 IC WNL, right carotid bulb mod stenosis near origin of Rt EC Family History FAMILY HISTORY Problem Relation Age of Onset No Ocular Disease Father Cancer Father Diabetes Father Hypertension Father No Ocular Disease Mother Cancer Mother Hypertension Mother Cataract Sister Diabetes Sister Hypertension Sister No Ocular Disease Brother Cancer Brother Hypertension Brother No Ocular Disease Maternal Grandmother Hypertension Maternal Grandmother Cataract Maternal Grandfather Cancer Maternal Grandfather Hypertension Maternal Grandfather No Ocular Disease Paternal Grandmother Hypertension Paternal Grandmother No Ocular Disease Paternal Grandfather Hypertension Paternal Grandfather No Ocular Disease Brother Cancer Brother Hypertension Brother Patient Allergies ALLERGIES Allergen Reactions Bees Anaphylaxis Wasps Anaphylaxis Penicillins Other: See Comments Pt states took when young just made him real sick Current Medications Current Outpatient Medications on File Prior to Visit Medication Sig metoprolol succinate ER (TOPROL XL) 100 mg Take one daily with the 200 mg strength for total of 300mg a day metoprolol succinate ER (TOPROL XL) 200 mg 24 hr tablet Take one tab a day with 100 mg dose for total of 300 mg a day. amLODIPine (NORVASC) 5 mg tablet Take 1 tablet by mouth once daily. PARoxetine (PAXIL) 10 mg tablet Take 1 tablet by mouth once daily. atorvastatin (LIPITOR) 40 mg tablet Take 1 tablet by mouth once daily. triamterene-hydroCHLOROthiazide (DYAZIDE) 37.5-25 mg per capsule Take 1 capsule by mouth once daily. lisinopril (ZESTRIL, PRINIVIL) 40 mg tablet Take 1 tablet by mouth twice daily. sildenafil (REVATIO) 20 mg tablet Take 2-5 tablets by mouth as needed. Take only once in 24 hour period. No current facility-administered medications on file prior to visit. Social History Social History Tobacco Use Smoking status: Former Packs/day: 0.50 Years: 15.00 Pack years: 7.50 Types: Cigarettes Quit date: 09/2019 Years since quittin.2 Smokeless tobacco: Never Vaping Use Vaping Use: Never used Substance Use Topics Alcohol use: Yes Alcohol/week: 5.0 standard drinks Types: 2 Cans of Beer (12oz) per week Drug use: No Review of Symptoms REVIEW OF SYSTEMS GENERAL: No weight loss, malaise or fevers HEENT: Negative for frequent or significant headaches, No changes in hearing or vision, no nose bleeds or other nasal problems NECK: Negative for lumps, goiter, pain and significant neck swelling RESPIRATORY: Negative for cough, hemoptysis, wheezing, COPD, dyspnea or shortness of breath CARDIOVASCULAR: Negative for chest pain, leg swelling, hypertension, CHF or palpitations GI: No nausea, vomiting, or diarrhea, No heartburn or reflux symptoms, and no blood : No history of dysuria, fblood MUSCULOSKELETAL: Negative for joint pain or swelling, back pain or muscle pain SKIN: Negative for lesions, rash, and itching PSYCH: Negative for sleep disturbance, mood disorder and recent psychosocial stressors HEMATOLOGY/LYMPHOLOGY: Negative for prolonged bleeding, bruising easily or swollen nodes ENDOCRINE: Negative for cold or heat intolerance, polyuria, polydipsia and goiter.. no symptoms of low BS's NEURO: No history of headaches, syncope, paralysis, seizures or tremors EXAM: BP 126/82 (BP Site: Left Arm, BP Position: Sitting, BP Cuff Size: Large Adult) Pulse 62 Resp 14 Ht 172.1 cm (5' 7.75) Wt 95.3 kg (210 lb) BMI 32.17 kg/m Last 5 Encounter Wt Readings: Date: Wt: 12/10/2022 95.3 kg (210 lb) 10/25/2022 96.2 kg (212 lb) 05/28/2022 90.7 kg (200 lb) 03/08/2022 94.6 kg (208 lb 9.6 oz) 11/25/2021 96.6 kg (213 lb) General Appearance: Well appearing, alert, in no acute distress, well-hydrated, well nourished.. Skin: Skin color, texture, turgor normal, no suspicious rashes or lesions. Head: Normocephalic, no masses, lesions, tenderness or abnormalities. Eyes: Anicteric sclera. Pupils are equally round and reactive to light. Extraocular movements are intact. . Ears: External ears normal, canals clear. Neck: Supple, no adenopathy; thyroid symmetric, normal size, no bruits. Lungs: Lungs clear to auscultation. No wheezing, rhonchi, rales.. Heart: RRR without murmur, gallop, or rubs. No ectopy. Abdomen: Normal abdominal exam, Abdomen soft, non-tender. Bowel sounds normal. No masses, organomegaly. Extremities: No deformities, edema, skin discoloration, Good capillary refill. . Musculoskeletal: Spine range of motion normal. Muscular strength intact, No joint swelling, deformity, or tenderness. Peripheral Pulses: Normal. Genitalia: Normal, Penis normal. No urethral discharge. Scrotum normal to palpation. No hernia.. Rectal: Normal exam. Diabetic Foot Exam: Feet: Shoes and socks removed, no deformities, ulcers, calluses, normal distal pulses, sensitive to10 gm microfilament, vibratory exam within normal limits, and nails notable for Crumbly, Deformed, Hypertrophic, or Yellowish Skin: warm, dry, and no callouses or ulcer Vascular Pulses: Normal SEMMES-KAYLIE MONOFILAMENT TESTING Left Foot Right Foot Dorsal Surface Intact Dorsal Surface Intact Plantar Surface Intact Plantar Surface Intact Health Maintenance List COVID-19 VACCINE(1) Never done COLORECTAL CANCER SCREENING Never done SHINGRIX VACCINE(1 of 2) Never done PNEUMOCOCCAL(2 - PCV) due on 05/16/2016 DILATED RETINAL EXAM due on 02/09/2020 BP CONTROLLED (<130/80) due on 11/14/2021 DEPRESSION ASSESSMENT Never done HBA1C due on 11/29/2022 URINE ALBUMIN:CREATININE RATIO due on 11/25/2022 DIABETIC FOOT EXAM due on 11/25/2022 ANNUAL PCP TEAM CHRONIC DISEASE VISIT due on 05/28/2023 LDL CHOLESTEROL due on 06/01/2023 PROSTATE CANCER SCREENING DISCUSSION due on 11/25/2026 DTAP,TDAP,TD(2 - Td or Tdap) due on 06/10/2027 INFLUENZA Completed HEPATITIS C SCREENING Discontinued HIV SCREENING Discontinued Data reviewed A/P ASSESSMENT/PLAN: 1. Well adult exam - ICD9: V70.0, ICD10: Z00.00 (primary diagnosis) - Counseled on healthy diet and regular exercise - Discussed need for and benefit of weight loss. BMI 32.17 kg/(m^2) - Patient was counseled [id number] by myself (the billing provider) for the following immunizations and vaccine components, including side effects: Pneumococcal . Patient consents for immunization and understands risks and benefits. A VIS sheet on each immunization was given to the patient. - Follow up for annual exam in one year 2. Essential hypertension - ICD9: 401.9, ICD10: I10 - good control - Continue current medication(s) - Recommended regular aerobic exercise. - Recommend home blood pressure monitoring, to bring results in on next visit - Goal of BP <130/80 - METOPROLOL SUCCINATE ER 100 MG TABLET,EXTENDED RELEASE 24 HR - METOPROLOL SUCCINATE ER 200 MG TABLET,EXTENDED RELEASE 24 HR - TRIAMTERENE 37.5 MG-HYDROCHLOROTHIAZIDE 25 MG CAPSULE - LISINOPRIL 40 MG TABLET 3. Type 2 diabetes mellitus without complication, without long-term current use of insulin (HCC) - ICD9: 250.00, ICD10: E11.9 - will await labs - Counseled on healthy diet and regular exercise - Discussed need for and benefit of weight loss. BMI 32.17 kg/(m^2) - managed via diet. 4. Dyslipidemia - ICD9: 272.4, ICD10: E78.5 - to be determined upon return of lab results - Continue current medication. - Encouraged following a low fat, low cholesterol diet. - Discussed the benefits of regular aerobic exercise and weight loss. - Encouraged following a low carbohydrate, healthy oil intake diet. 5. Left ventricular diastolic dysfunction with preserved systolic function - ICD9: 429.9, ICD10: I51.89 - clinically stable no changes. 6. Mild concentric left ventricular hypertrophy (LVH) - ICD9: 429.3, ICD10: I51.7 - as per #5 7. DESIRE (generalized anxiety disorder) - ICD9: 300.02, ICD10: F41.1 - stable on paxil 8. Screening for colon cancer - ICD9: V76.51, ICD10: Z12.11 - check IFOBT 9. Encounter for immunization - ICD9: V03.89, ICD10: Z23 - PNEUMOCOCCAL VACCINE (PREVNAR 20): given Requested Prescriptions Signed Prescriptions Disp Refills metoprolol succinate ER (TOPROL XL) 100 mg 90 tablet 1 Sig: Take one daily with the 200 mg strength for total of 300 mg a day metoprolol succinate ER (TOPROL XL) 200 mg 24 hr tablet 90 tablet 1 Sig: Take one tab a day with 100 mg dose for total of 300 mg a day. amLODIPine (NORVASC) 5 mg tablet 90 tablet 1 Sig: Take 1 tablet by mouth once daily. PARoxetine (PAXIL) 10 mg tablet 90 tablet 1 Sig: Take 1 tablet by mouth once daily. atorvastatin (LIPITOR) 40 mg tablet 90 tablet 1 Sig: Take 1 tablet by mouth once daily. triamterene-hydroCHLOROthiazide (DYAZIDE) 37.5-25 mg per capsule 90 capsule 1 Sig: Take 1 capsule by mouth once daily. lisinopril (ZESTRIL) 40 mg tablet 180 tablet 1 Sig: Take 1 tablet by mouth twice daily. F/u 6 months routine Garrett Andrews MD [facility]03-[facility]23 Miscellaneous Notes* Telephone Encounter - Garrett Andrews MD - 12/10/2022 10:52 AM EDT The following approved medication requests have been transmitted electronically. Requested Prescriptions Signed Prescriptions Disp Refills ibuprofen (MOTRIN) 800 mg tablet 60 tablet 3 Sig: TAKE 1 TABLET BY MOUTH EVERY 8 HOURS NEEDED FOR PAIN Authorizing Provider: GARRETT ANDREWS MD * Telephone Encounter - Lexis Bolden MA - 12/10/2022 10:42 AM EDT Patient has been identified by name and date of : Yes Requested Prescriptions Pending Prescriptions Disp Refills ibuprofen (MOTRIN) 800 mg tablet [Pharmacy Med Name: IBUPROFEN 800 MG TABLET] 60 tablet 3 Sig: TAKE 1 TABLET BY MOUTH EVERY 8 HOURS NEEDED FOR PAIN RX INSTRUCTIONS: Patient aware RX will be sent to pharmacy. No need to notify patient. Lexis Bolden MA Isabella: 05/2022 No appointment scheduled (needs scheduled) Last refill: 01/2022 documented in [facility]Paul[facility]01-30-[facility] Nurse Note* Lula Arriaga MA - 10/25/2022 11:29 AM EST Ambulatory Ear Lavage Pre-treatment: Ear Canal/Tympanic membrane assessed by CHERYL Bolden CNP Treatment: Left ear Equipment and Irrigation solution and Volume used: Single use syringe with single use irrigation tip Return flow appearance: Debris Patient tolerated procedure: yes Post-treatment: Post Irrigation Post-treatment: Ear Canal/Tympanic membrane assessed by CHERYL Bolden CNP documented in this encounterPaul[facility]01-30-[facility]23 History of Present illness Narrative* Shasha Bolden APRN.CNP - 10/25/2022 11:21 AM EST CC: Patient presents with: Ear Pain: Left ear feels plugged or just swollen because he itched inside it with a pen x 1 day Patient says he suffered for years with flaky itchy dry skin on the outside of his years and sometimes it itches years with a pen. Patient does have a history of cerumen impaction is not sure thoughts the cause or if something else is going on. HPI: Breezy Smith is a 61 year old male who presents to the office with complaint of ear symptoms for the past day. Symptoms are staying the same. Associated symptoms includes ear pressure . Denies headache, body aches, fever, cough, nausea, vomiting , and diarrhea. Treatments tried include nothing so far. with no relief of symptoms. Sick contacts: unknown. History of asthma, frequent episodes of bronchitis, chronic bronchitis, bronchiectasis or COPD: No Smoker: No Seasonal/environmental allergies: No The ROS is otherwise negative. The patient's pmh, medications, allergies, and past visits are reviewed. PHYSICAL EXAM: BP 138/80 Pulse 62 Temp 37.1 C (98.7 F) (Tympanic) Resp 16 Wt 96.2 kg (212 lb) SpO2 99% BMI 31.77 kg/m General appearance: alert, cooperative, pleasant, in no acute distress Head: Normocephalic Eyes: EOM's intact, conjunctiva pink and moist, no icterus, sclera white, non-injected Ears: Right ear: External ear/canal- normal and TM WNL and dry flaky skin on external ear canal . Left ear: External ear/canal- cerumen impaction and dry flaky skin on external ear canal, Heart: Negative. RRR without obvious murmur, gallop, or rubs. No ectopy. 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 Mild concentric left ventricular hypertrophy (LVH) 04/16/2014 Senile nuclear sclerosis 04/03/2014 Type 2 diabetes mellitus without complication, without long-term current use of insulin (HCC) 10/16/2017 a1c 6.5% oct 2020 Ulnar neuropathy of left upper extremity 09/10/2019 PAST SURGICAL HISTORY Procedure Laterality Date 2-D ECHO (TTE); COMPLETE 04/15/2014 EF=55%, mild concentric LVH and diastolic dysfunction TONSILLECTOMY HX Bilateral 1968 US CAROTID 03/28/2014 IC WNL, right carotid bulb mod stenosis near origin of Rt EC ALLERGIES Bees, Wasps, and Penicillins MEDICATIONS metoprolol succinate ER (TOPROL XL) 100 mg Take one daily with the 200 mg strength for total of 300mg a day metoprolol succinate ER (TOPROL XL) 200 mg 24 hr tablet Take one tab a day with 100 mg dose for total of 300 mg a day. amLODIPine (NORVASC) 5 mg tablet Take 1 tablet by mouth once daily. PARoxetine (PAXIL) 10 mg tablet Take 1 tablet by mouth once daily. atorvastatin (LIPITOR) 40 mg tablet Take 1 tablet by mouth once daily. triamterene-hydroCHLOROthiazide (DYAZIDE) 37.5-25 mg per capsule Take 1 capsule by mouth once daily. lisinopril (ZESTRIL, PRINIVIL) 40 mg tablet Take 1 tablet by mouth twice daily. sildenafil (REVATIO) 20 mg tablet Take 2-5 tablets by mouth as needed. Take only once in 24 hour period. hydrocortisone 1 % cream Apply to affected area twice daily for 14 days. FAMILY HISTORY Problem Relation Age of Onset No Ocular Disease Father Cancer Father Diabetes Father Hypertension Father No Ocular Disease Mother Cancer Mother Hypertension Mother Cataract Sister Diabetes Sister Hypertension Sister No Ocular Disease Brother Cancer Brother Hypertension Brother No Ocular Disease Maternal Grandmother Hypertension Maternal Grandmother Cataract Maternal Grandfather Cancer Maternal Grandfather Hypertension Maternal Grandfather No Ocular Disease Paternal Grandmother Hypertension Paternal Grandmother No Ocular Disease Paternal Grandfather Hypertension Paternal Grandfather No Ocular Disease Brother Cancer Brother Hypertension Brother Social History Tobacco Use Smoking status: Former Packs/day: 0.50 Years: 15.00 Pack years: 7.50 Types: Cigarettes Quit date: 09/2019 Years since quittin.0 Smokeless tobacco: Never Vaping Use Vaping Use: Never used Substance Use Topics Alcohol use: Yes Alcohol/week: 5.0 standard drinks Types: 2 Cans of Beer (12oz) per week Drug use: No ' ASSESSMENT/PLAN: 1. Dry skin dermatitis - ICD9: 692.89, ICD10: L85.3 (primary diagnosis) - HYDROCORTISONE 1 % TOPICAL CREAM - to use on external ear canal for dry itching skin. Patient will follow up with dermatology for more permament care plan. 2. Impacted cerumen of left ear - ICD9: 380.4, ICD10: H61.22 Cerumen cleared by means of flushing from MA. TM visible and WNL. Prescription instructions reviewed with patient as applicable. Potential red flag symptoms discussed with the patient. Reviewed appropriate action plan to take if red flag symptoms occur. Patient agreeable to treatment plan. Shasha Bolden APRN.METEOROLOGY TEACHER documented in this encounterPaul[facility]01-09-2023 Miscellaneous Notes* Telephone Encounter - Erica Wan - 10/04/2022 9:06 AM ESTSummary: Financial Called PT to let know about note below, LVM, advised PT to call number back and ask for financial counselor. Thanks, TERE Durham * Telephone Encounter - Garrett Andrews MD - 10/01/2022 5:10 PM EST Please advise patient to call the [phone] number and ask to speak with a financial counselor. However let patient know most physicians do not take [facility] * Telephone Encounter - Pily Deutsch RN - 10/01/2022 12:20 PM EST Pt called in and reports he is going to be retiring and will be changing insurance. He would like to know if this provider accepts [facility]. If this provider does not accept it does he know of anyone that does that he would recommend. Please call and advise. documented in this encounterPaul[facility]12-27-2022 Miscellaneous Notes* Telephone Encounter - Lucia Bearden MA - 09/21/2022 1:01 PM EST RX INSTRUCTIONS: Patient aware RX will be sent to pharmacy. No need to notify patient. Last OV: 05/28/22 with PCP Last refill: 02/17/22 With 60 and 3 refills Follow up: 12/10/22-physical with PCP Lucia Bearden MA documented in this encounterPaulding [facility]12-19-2022 Miscellaneous Notes* Telephone Encounter - Garrett Andrews MD - 09/13/2022 11:26 AM EST The following approved medication requests have been transmitted electronically. Requested Prescriptions Signed Prescriptions Disp Refills metoprolol succinate ER (TOPROL XL) 100 mg 90 tablet 1 Sig: Take one daily with the 200 mg strength for total of 300 mg a day Garrett Andrews MD * Telephone Encounter - Lexis Bolden MA - 09/13/2022 11:10 AM EST Patient has been identified by name and date of : Yes Requested Prescriptions Pending Prescriptions Disp Refills metoprolol succinate ER (TOPROL XL) 100 mg 90 tablet 1 Sig: Take one daily with the 200 mg strength for total of 300 mg a day RX INSTRUCTIONS: Patient aware RX will be sent to pharmacy. No need to notify patient. Lexis oBlden MA Isabella; 05/2022 Nov: 11/2022 Last refill: documented in this encounterPaulding [facility]12-12-2022 Miscellaneous Notes* Telephone Encounter - Garrett Andrews MD - 09/06/2022 8:15 AM EST The following approved medication requests have been transmitted electronically. Requested Prescriptions Signed Prescriptions Disp Refills metoprolol succinate ER (TOPROL XL) 200 mg 24 hr tablet 90 tablet 1 Sig: Take one tab a day with 100 mg dose for total of 300 mg a day. Authorizing Provider: GARRETT ANDREWS MD * Telephone Encounter - Lexis Bolden MA - 09/06/2022 7:59 AM EST Patient has been identified by name and date of : Yes Requested Prescriptions Pending Prescriptions Disp Refills metoprolol succinate ER (TOPROL XL) 200 mg 24 hr tablet 90 tablet 1 Sig: Take one tab a day with 100 mg dose for total of 300 mg a day. RX INSTRUCTIONS: Patient aware RX will be sent to pharmacy. No need to notify patient. Lexis Bolden MA Isabella: 05/2022 Nov: 11/2022 Last refill: 04/2022 documented in this encounterPaulding [facility]09-07-2022 Miscellaneous Notes* Telephone Encounter - Viki Peterson LPN - 06/02/2022 11:07 AM EDT Spoke with pt and information listed below given. Pt verbalizes understanding. Viki Peterson LPN * Telephone Encounter - Karin Yeager LPN - 06/02/2022 8:14 AM EDT Left message for pt to contact office. Karin Yeager LPN * Telephone Encounter - Garrett Andrews MD - 06/01/2022 9:13 PM EDT Let patient know A1c was good at 6.3%. Lipid panel showed Trigs good at 142, HDL good at 42 and LDL good at 58 (was 75) documented in this encounterPaulding [facility]09-02-2022 Instructions* Patient Instructions* Garrett Andrews MD - 05/28/2022 1:10 PM EDT Please get labs and urine test done on or after 11/12/2022 prior to your next visit. documented in this encounterPaulding [facility]09-02-2022 History of Present illness Narrative* Garrett Andrews MD - 05/28/2022 12:43 PM EDT Chief Complaint Patient presents with: F/U 6 months HPI Breezy Smith is a 61 year old male who presents here today for 6 month follow up. Patient with Hx of HTN, Hyperlipidemia, elevated A1c, DESIRE, LVH, Hx of central artery occlusion, ED as well as those reviewed and addressed below and in ROS. Patient has been doing well. No new issues or concerns. Past medical history, appointments, medications, allergies reviewed. 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 Mild concentric left ventricular hypertrophy (LVH) 04/16/2014 Senile nuclear sclerosis 04/03/2014 Type 2 diabetes mellitus without complication, without long-term current use of insulin (HCC) 10/16/2017 a1c 6.5% oct 2020 Ulnar neuropathy of left upper extremity 09/10/2019 Previous Surgical History PAST SURGICAL HISTORY Procedure Laterality Date 2-D ECHO (TTE); COMPLETE 04/15/2014 EF=55%, mild concentric LVH and diastolic dysfunction TONSILLECTOMY HX Bilateral 1968 US CAROTID 03/28/2014 IC WNL, right carotid bulb mod stenosis near origin of Rt EC Family History FAMILY HISTORY Problem Relation Age of Onset No Ocular Disease Father Cancer Father Diabetes Father Hypertension Father No Ocular Disease Mother Cancer Mother Hypertension Mother Cataract Sister Diabetes Sister Hypertension Sister No Ocular Disease Brother Cancer Brother Hypertension Brother No Ocular Disease Maternal Grandmother Hypertension Maternal Grandmother Cataract Maternal Grandfather Cancer Maternal Grandfather Hypertension Maternal Grandfather No Ocular Disease Paternal Grandmother Hypertension Paternal Grandmother No Ocular Disease Paternal Grandfather Hypertension Paternal Grandfather No Ocular Disease Brother Cancer Brother Hypertension Brother Patient Allergies ALLERGIES Allergen Reactions Bees Anaphylaxis Wasps Anaphylaxis Penicillins Other: See Comments Pt states took when young just made him real sick Current Medications Current Outpatient Medications on File Prior to Visit Medication Sig metoprolol succinate ER (TOPROL XL) 100 mg Take one daily with the 200 mg strength for total of 300mg a day metoprolol succinate ER (TOPROL XL) 200 mg 24 hr tablet Take one tab a day with 100 mg dose for total of 300 mg a day. amLODIPine (NORVASC) 5 mg tablet Take 1 tablet by mouth once daily. PARoxetine (PAXIL) 10 mg tablet Take 1 tablet by mouth once daily. atorvastatin (LIPITOR) 40 mg tablet Take 1 tablet by mouth once daily. lisinopril (ZESTRIL, PRINIVIL) 40 mg tablet Take 1 tablet by mouth twice daily. triamterene-hydroCHLOROthiazide 37.5-25 mg per capsule Take 1 capsule by mouth once daily. hydrocortisone 2.5 % cream Apply 1 application to affected area twice daily as needed. Location: ears (Patient not taking: Reported on 05/28/2022) fluticasone (FLONASE) 50 mcg/actuation nasal spray SPRAY 1 SPRAY INTO EACH NOSTRIL AT BEDTIME (Patient not taking: Reported on 05/28/2022) sildenafil (REVATIO) 20 mg tablet Take 2-5 tablets by mouth as needed. Take only once in 24 hour period. No current facility-administered medications on file prior to visit. Social History Social History Tobacco Use Smoking status: Former Packs/day: 0.50 Years: 15.00 Pack years: 7.50 Types: Cigarettes Quit date: 09/2019 Years since quittin.6 Smokeless tobacco: Never Vaping Use Vaping Use: Never used Substance Use Topics Alcohol use: Yes Alcohol/week: 5.0 standard drinks Types: 2 Cans of Beer (12oz) per week Drug use: No Review of Symptoms REVIEW OF SYSTEMS GENERAL: No unintentional weight loss, malaise or fevers NECK: Negative for lumps, goiter, pain and significant neck swelling RESPIRATORY: Negative for cough, hemoptysis, wheezing, COPD, dyspnea or shortness of breath CARDIOVASCULAR: Negative for chest pain, leg swelling, hypertension, CHF or palpitations GI: No nausea, vomiting, or diarrhea and No heartburn or reflux symptoms : No history of dysuria, blood PSYCH: Negative for sleep disturbance, mood disorder and recent psychosocial stressors ENDOCRINE: Negative for symptoms of low BS's NEURO: No history of headaches, syncope, vision changes, paralysis, seizures or tremors EXAM: BP 116/76 (BP Site: Right Arm, BP Position: Sitting, BP Cuff Size: Large Adult) Pulse 70 Resp 16 Wt 90.7 kg (200 lb) BMI 29.97 kg/m Last 5 Encounter Wt Readings: Date: Wt: 05/28/2022 90.7 kg (200 lb) 03/08/2022 94.6 kg (208 lb 9.6 oz) 11/25/2021 96.6 kg (213 lb) 10/07/2021 97.5 kg (215 lb) 09/24/2021 98.4 kg (217 lb) General Appearance: Well appearing, alert, in no acute distress, well-hydrated, well nourished. andOverweight. Eyes: Anicteric sclera. Pupils are equally round and reactive to light. Extraocular movements are intact. . Neck: Supple, no adenopathy; thyroid symmetric, normal size, no bruits. Lungs: Lungs clear to auscultation. No wheezing, rhonchi, rales.. Heart: RRR without murmur, gallop, or rubs. No ectopy. Abdomen: Normal abdominal exam, Abdomen soft, non-tender. Bowel sounds normal. No masses, organomegaly. Extremities: No deformities, edema, skin discoloration, Good capillary refill. . Musculoskeletal: Muscular strength intact, No joint swelling, deformity, or tenderness. Peripheral Pulses: Normal. Neurologic: Gait normal. Reflexes normal and symmetric. Sensation to light touch and crainal nerves2-12 intact.. Health Maintenance List PNEUMOCOCCAL(2 - PCV) due on 05/16/2016 DILATED RETINAL EXAM due on 02/09/2020 BP CONTROLLED (<130/80) due on 11/14/2021 HBA1C due on 05/28/2022 INFLUENZA(1) due on 05/27/2022 COLORECTAL CANCER SCREENING due on 11/25/2022 SHINGRIX VACCINE(1 of 2) due on 11/25/2022 COVID-19 VACCINE(1) due on 11/25/2022 URINE ALBUMIN:CREATININE RATIO due on 11/25/2022 LDL CHOLESTEROL due on 11/25/2022 DIABETIC FOOT EXAM due on 11/25/2022 ANNUAL PCP TEAM CHRONIC DISEASE VISIT due on 11/25/2022 PROSTATE CANCER SCREENING DISCUSSION due on 11/25/2026 DTAP,TDAP,TD(2 - Td or Tdap) due on 06/10/2027 HEPATITIS C SCREENING Discontinued HIV SCREENING Discontinued DEPRESSION SCREENING Discontinued Data reviewed Component Latest Ref Rng & Units 11/25/2021 WBC 3.70 - 11.00 k/uL 6.34 RBC 4.20 - 6.00 m/uL 4.77 Hemoglobin 13.0 - 17.0 g/dL 15.0 Hematocrit 39.0 - 51.0 % 44.0 MCV 80.0 - 100.0 fL 92.2 MCH 26.0 - 34.0 pg 31.4 MCHC 30.5 - 36.0 g/dL 34.1 RDW-CV 11.5 - 15.0 % 12.3 Platelet Count 150 - 400 k/uL 229 MPV 9.0 - 12.7 fL 10.1 Neut% % 55.1 Abs Neut (ANC) 1.45 - 7.50 k/uL 3.49 Lymph% % 30.9 Abs Lymph 1.00 - 4.00 k/uL 1.96 [place]% % 9.[address] [place] <0.87 k/uL 0.58 Eosin% % 3.8 Abs Eosin <0.46 k/uL 0.24 Baso% % 0.8 Abs Baso <0.11 k/uL 0.05 Immature Gran % % 0.3 IMMATURE GRANS (ABS) <0.10 k/uL <0.03 NRBC /100 WBC 0.0 Absolute nRBC <0.01 k/uL <0.01 DTYPE Auto Protein, Total 6.3 - 8.0 g/dL 7.4 Albumin 3.9 - 4.9 g/dL 4.5 Calcium 8.5 - 10.2 mg/dL 10.0 Bilirubin, Total 0.2 - 1.3 mg/dL 0.4 Alkaline Phosphatase 38 - 113 U/L 68 AST 14 - 40 U/L 28 ALT 10 - 54 U/L 32 Glucose 74 - 99 mg/dL 97 BUN 9 - 24 mg/dL 20 Creatinine 0.73 - 1.22 mg/dL 0.99 Sodium 136 - 144 mmol/L 139 Potassium 3.7 - 5.1 mmol/L 4.4 Chloride 97 - 105 mmol/L 102 CO2 22 - 30 mmol/L 25 Anion Gap 9 - 18 mmol/L 12 eGFR >=60 mL/min/1.73m 87 Color Yellow Light Yellow Clarity Clear Clear Glucose, Urine Negative Negative Bilirubin, Urine Negative Negative Ketones, Urine Negative Negative Specific [place], Ur 1.005 - 1.030 1.017 Hemoglobin/Blood,Ur Negative Negative pH, Urine 5.0 - 8.0 6.0 Protein, Urine Negative Negative Urobilinogen Negative Negative Nitrites Negative Negative Leukest Negative Negative WBC, Urine 0-5 /HPF 0-5 /HPF RBC, Urine 0-3 /HPF 0-3 /HPF Total Cholesterol, Nonfasting <200 mg/dL 137 Triglycerides, Nonfasting <150 mg/dL 105 HDL Cholesterol, Nonfasting >39 mg/dL 41 LDL Cholesterol, Nonfasting <100 mg/dL 75 Non HDL Cholesterol, Nonfasting <130 mg/dL 96 VLDL Cholesterol, Nonfasting <30 mg/dL 21 Total Chol/HDL Ratio, Nonfasting <5.10 mg/dL 3.34 LDL/HDL Ratio, Nonfasting <2.54 mg/dL 1.83 Creatinine, Ur Random (UCRR) 20.0 - 300.0 mg/dL 82.5 Albumin, Urine Random mg/L <12.0 Albumin/Creat Ratio <30 mg/g <15 Hemoglobin A1C 4.3 - 5.6 % 6.2 (H) Estimated Average Glucose mg/dL 131 A/P ASSESSMENT/PLAN: 1. Type 2 diabetes mellitus without complication, without long-term current use of insulin (HCC) - ICD9: 250.00, ICD10: E11.9 (primary diagnosis) Will await lab to see if any changes needed. - Encouraged regular aerobic exercise and weight loss - BP goal of <130/80 - LDL goal of <100 - cont management per diet control. - HEMOGLOBIN A1C 2. Essential hypertension - ICD9: 401.9, ICD10: I10 - good control - Continue current medication(s) - Recommended regular aerobic exercise. - Recommend home blood pressure monitoring, to bring results in on next visit - Goal of BP <130/80 - TRIAMTERENE 37.5 MG-HYDROCHLOROTHIAZIDE 25 MG CAPSULE - LISINOPRIL 40 MG TABLET 3. Dyslipidemia - ICD9: 272.4, ICD10: E78.5 - good control - Encouraged following a low fat, low cholesterol diet. - Discussed the benefits of regular aerobic exercise and weight loss. - Encouraged following a low carbohydrate, healthy oil intake diet. - Continue current therapy. Check Lipid. 4. DESIRE (generalized anxiety disorder) - ICD9: 300.02, ICD10: F41.1 - stable with Paxil at current dose. 5. Left ventricular diastolic dysfunction with preserved systolic function - ICD9: 429.9, ICD10: I51.89 - clinically stable Requested Prescriptions Signed Prescriptions Disp Refills amLODIPine (NORVASC) 5 mg tablet 90 tablet 1 Sig: Take 1 tablet by mouth once daily. PARoxetine (PAXIL) 10 mg tablet 90 tablet 1 Sig: Take 1 tablet by mouth once daily. atorvastatin (LIPITOR) 40 mg tablet 90 tablet 1 Sig: Take 1 tablet by mouth once daily. triamterene-hydroCHLOROthiazide (DYAZIDE) 37.5-25 mg per capsule 90 capsule 1 Sig: Take 1 capsule by mouth once daily. lisinopril (ZESTRIL, PRINIVIL) 40 mg tablet 180 tablet 1 Sig: Take 1 tablet by mouth twice daily. F/u 6 months WAE check CMP, Lipid, UA, Urine micro albumin, A1c, CBC and PSA prior Garrett Andrews MD documented in this encounterPaul[facility]08-22-2022 Miscellaneous Notes* Telephone Encounter - Garrett Andrews MD - 05/17/2022 5:42 PM EDT The following approved medication requests have been transmitted electronically. Requested Prescriptions Signed Prescriptions Disp Refills metoprolol succinate ER (TOPROL XL) 100 mg 90 tablet 1 Sig: Take one daily with the 200 mg strength for total of 300 mg a day Authorizing Provider: GARRETT ANDREWS MD * Telephone Encounter - Lexis Bolden MA - 05/17/2022 8:45 AM EDT Patient has been identified by name and date of : Yes Requested Prescriptions Pending Prescriptions Disp Refills metoprolol succinate ER (TOPROL XL) 100 mg 90 tablet 1 Sig: Take one daily with the 200 mg strength for total of 300 mg a day RX INSTRUCTIONS: Patient aware RX will be sent to pharmacy. No need to notify patient. Lexis Bolden MA Isabella: 11/2021 Nov: 05/2022 Last refill: 02/2022 documented in this encounterPaul[facility]06-13-2022 Instructions* Patient Instructions* Alison Hu APRN.METEOROLOGY TEACHER - 03/08/2022 11:23 AM EDT RESPIRATORY INFECTION GENERAL INFORMATION: An upper respiratory tract infection, or cold, is a viral infection of the airway passages. It can be caused by any one of almost 200 different viruses. Common symptoms include a runny or stuffy nose, sneezing, watery eyes, sore throat, cough, and slight fever. Colds are contagious, especially during the first 3 or 4 days and cannot be cured by antibiotics. They are spread by coughs, sneezes, anddirect contact, especially [id number]. A respiratory tract infection usually clears up in a few days, but some people may be sick for a week or two. INSTRUCTIONS: 1. Be careful not to blow your nose too hard because this may cause a nosebleed. 2. Use a cool-mist humidifier (vaporizer) to increase air moisture. This will make it easier for you to breathe. Do not use hot steam. 3. Rest as much as possible and get plenty of sleep. 4. Wash your hands often, especially after you blow your nose. Cover your mouth and nose with a tissue when you sneeze or cough. 5. Drink plenty of clear fluids (8 glasses a day) such as water, fruit juice, tea, clear soups, andcarbonated beverages. CONTACT YOUR DOCTOR IF : 1. Your fever lasts more than 3 days. 2. You have a sore throat that gets worse or you see white or yellow spots in your throat. 3. Your cough gets worse or lasts more than 10 days. 4. You develop a rash anywhere on your skin. 5. You have an earache or a headache. 6. You have thick greenish or yellowish discharge from your nose. RETURN IMMEDIATELY IF: 1. You cough up thick yellow, green, velez, or bloody sputum. 2. You have difficulty breathing, pain in your chest, or your skin or nails look velez or blue. 3. You have shaking chills or a temperature over 102 F (39 C). documented in this encounterPaulding [facility]06-13-2022 History of Present illness Narrative* Alison Hu APRN.CNP - 03/08/2022 11:16 AM EDT This note was created using [employer]. Subjective Breezy Smith is a 61 year old male. 61 year old male with PMH presents for complaints of HTN, DM, dyslipidemia, carpal tunnel presents for illness. Acute onset +runny nose +sinus congestion +sinus pressure +nausea +body aches +cough States Tuesday he felt improved. figured it went away States he woke up this morning and his symptoms returned. Denies headache. Denies sore throat Denies abdominal pain. Denies cough or SOB. He called into nurse triage today, and was recommended to come her and be tested for flu/COVID. 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 The history is provided by the patient. No speech language pathologist was used. URI He complains of cough. There is no chest tightness, difficulty breathing, frequent throat clearing,hemoptysis, hoarse voice, shortness of breath, sputum production or wheezing. This is a new problem. The current episode started in the past 7 days. The problem occurs constantly. The problem has been waxing and waning. The cough is productive of sputum. Associated symptoms include headaches, malaise/fatigue, nasal congestion, rhinorrhea and a sore throat. Pertinent negatives include no appetite change, chest pain, dyspnea on exertion, ear congestion, ear pain, fever, heartburn, myalgias, orthopnea, PND, postnasal drip, sneezing, sweats, trouble swallowing or weight loss. His symptoms are aggr avated by nothing. His symptoms are alleviated by nothing. He reports no improvement on treatment. There are no known risk factors for lung disease. There is no history of asthma, bronchiectasis, bronchitis, COPD, emphysema or pneumonia. 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 Mild concentric left ventricular hypertrophy (LVH) 04/16/2014 Senile nuclear sclerosis 04/03/2014 Type 2 diabetes mellitus without complication, without long-term current use of insulin ([facility]) 10/16/2017 a1c 6.5% oct 2020 Ulnar neuropathy of left upper extremity 09/10/2019 PAST SURGICAL HISTORY Procedure Laterality Date 2-D ECHO (TTE); COMPLETE 04/15/2014 EF=55%, mild concentric LVH and diastolic dysfunction TONSILLECTOMY HX Bilateral 1968 US CAROTID 03/28/2014 IC WNL, right carotid bulb mod stenosis near origin of Rt EC ALLERGIES Bees, Wasps, and Penicillins MEDICATIONS ibuprofen (MOTRIN) 800 mg tablet Take 1 tablet by mouth every 8 hours as needed (for pain.). amLODIPine (NORVASC) 5 mg tablet Take 1 tablet by mouth once daily. PARoxetine (PAXIL) 10 mg tablet Take 1 tablet by mouth once daily. atorvastatin (LIPITOR) 40 mg tablet Take 1 tablet by mouth once daily. triamterene-hydroCHLOROthiazide 37.5-25 mg per capsule Take 1 capsule by mouth once daily. metoprolol succinate ER (TOPROL XL) 100 mg Take one daily with the 200 mg strength for total of 300mg a day hydrocortisone 2.5 % cream Apply 1 application to affected area twice daily as needed. Location: ears lisinopril (ZESTRIL, PRINIVIL) 40 mg tablet Take 1 tablet by mouth twice daily. fluticasone (FLONASE) 50 mcg/actuation nasal spray SPRAY 1 SPRAY INTO EACH NOSTRIL AT BEDTIME metoprolol succinate ER (TOPROL XL) 200 mg 24 hr tablet Take one tab a day with 100 mg dose for total of 300 mg a day. sildenafil (REVATIO) 20 mg tablet Take 2-5 tablets by mouth as needed. Take only once in 24 hour period. FAMILY HISTORY Problem Relation Age of Onset No Ocular Disease Father Cancer Father Diabetes Father Hypertension Father No Ocular Disease Mother Cancer Mother Hypertension Mother Cataract Sister Diabetes Sister Hypertension Sister No Ocular Disease Brother Cancer Brother Hypertension Brother No Ocular Disease Maternal Grandmother Hypertension Maternal Grandmother Cataract Maternal Grandfather Cancer Maternal Grandfather Hypertension Maternal Grandfather No Ocular Disease Paternal Grandmother Hypertension Paternal Grandmother No Ocular Disease Paternal Grandfather Hypertension Paternal Grandfather No Ocular Disease Brother Cancer Brother Hypertension Brother Social History Tobacco Use Smoking status: Former Smoker Packs/day: 0.50 Years: 15.00 Pack years: 7.50 Types: Cigarettes Quit date: 09/2019 Years since quittin.4 Smokeless tobacco: Never Used Vaping Use Vaping Use: Never used Substance Use Topics Alcohol use: Yes Alcohol/week: 5.0 standard drinks Types: 2 Cans of Beer (12oz) per week Drug use: No Review of Systems Constitutional: Positive for chills, fatigue and malaise/fatigue. Negative for appetite change, fever and weight loss. HENT: Positive for congestion, rhinorrhea, sinus pressure, sinus pain and sore throat. Negative forear pain, hoarse voice, postnasal drip, sneezing and trouble swallowing. Eyes: Negative for photophobia, pain, discharge, redness, itching and visual disturbance. Respiratory: Positive for cough. Negative for apnea, hemoptysis, sputum production, choking, chest tightness, shortness of breath and wheezing. Cardiovascular: Negative for chest pain, dyspnea on exertion, palpitations, leg swelling and PND. Gastrointestinal: Negative for abdominal pain, diarrhea, heartburn, nausea and vomiting. Musculoskeletal: Negative for arthralgias, back pain, gait problem and myalgias. Skin: Negative for color change, pallor, rash and wound. Allergic/Immunologic: Negative for environmental allergies, food allergies and immunocompromised state. Neurological: Positive for headaches. Negative for dizziness, seizures, facial asymmetry, light-headedness and numbness. Hematological: Negative for adenopathy. Does not bruise/bleed easily. Psychiatric/Behavioral: Negative for agitation and behavioral problems. Objective BP 136/84 Pulse 62 Temp 36.9 C (98.4 F) Resp 22 Wt 94.6 kg (208 lb 9.6 oz) SpO2 98% BMI31.26 kg/m Physical Exam Vitals and nursing note reviewed. Constitutional: General: He is not in acute distress. Appearance: Normal appearance. He is obese. He is not ill-appearing, toxic- appearing or diaphoretic. HENT: Head: Normocephalic and atraumatic. Right Ear: External ear normal. Left Ear: External ear normal. Nose: Nose normal. No congestion or rhinorrhea. Mouth/Throat: Mouth: Mucous membranes are moist. Pharynx: Oropharynx is clear. No oropharyngeal exudate or posterior oropharyngeal erythema. Eyes: General: Right eye: No discharge. Left eye: No discharge. Extraocular Movements: Extraocular movements intact. Conjunctiva/sclera: Conjunctivae normal. Pupils: Pupils are equal, round, and reactive to light. Cardiovascular: Rate and Rhythm: Normal rate and regular rhythm. Pulses: Normal pulses. Heart sounds: Normal heart sounds. No murmur heard. No friction rub. No gallop. Pulmonary: Effort: Pulmonary effort is normal. No respiratory distress. Breath sounds: Normal breath sounds. No stridor. No wheezing, rhonchi or rales. Chest: Chest wall: No tenderness. Abdominal: General: Abdomen is flat. There is no distension. Palpations: Abdomen is soft. There is no mass. Tenderness: There is no abdominal tenderness. There is no guarding or rebound. Hernia: No hernia is present. Musculoskeletal: General: No swelling, tenderness, deformity or signs of injury. Normal range of motion. Cervical back: Normal range of motion and neck supple. No rigidity or tenderness. Right lower leg: No edema. Left lower leg: No edema. Lymphadenopathy: Cervical: No cervical adenopathy. Skin: General: Skin is warm and dry. Capillary Refill: Capillary refill takes less than 2 seconds. Coloration: Skin is not jaundiced or pale. Findings: No bruising, lesion or rash. Neurological: General: No focal deficit present. Mental Status: He is alert and oriented to person, place, and time. Cranial Nerves: No cranial nerve deficit. Sensory: No sensory deficit. Motor: No weakness. Coordination: Coordination normal. Gait: Gait normal. Deep Tendon Reflexes: Reflexes normal. Psychiatric: Mood and Affect: Mood normal. Behavior: Behavior normal. Thought Content: Thought content normal. Assessment and Plan ASSESSMENT/PLAN: 1. URI, acute - ICD9: 465.9, ICD10: J06.9 - Discussed viral etiology and rationale for treatment. - Symptomatic treatment with prn analgesia - Supportive care with fluids and rest - The patient may also use OTC cough and cold meds as needed, warm salt water gargles, throat lozenges and/or OTC throat spray as needed and nasal saline gtts and suction prn. - Follow up in 3-5 days if symptoms persist or sooner if worsening of symptoms - Work note - COVID WITH FLUA+B, ROUTINE-obtained and pending 2. Viral Illness - Discussed viral etiology and rationale for treatment. - Symptomatic treatment with prn analgesia - Supportive care with fluids and rest - The patient may also use OTC cough and cold meds as needed, warm salt water gargles, throat lozenges and/or OTC throat spray as needed and nasal saline gtts and suction prn. - Follow up in 3-5 days if symptoms persist or sooner if worsening of symptoms - Work note - COVID WITH FLUA+B, ROUTINE-obtained and pending Alison Hu APRN.METEOROLOGY TEACHER documented [facility] Miscellaneous Notes* Telephone Encounter - Cheyanne Malhotra RN - 03/08/2022 10:36 AM EDT Protocol Recommended: See provider [id number] hours. Patient agreeable to Express care today for evaluation for further testing. Reason for Disposition [1] Sinus pain (not just congestion) AND [2] fever Answer Assessment - Initial Assessment Questions Patient calling to state he has not been feeling well since 03/03/22. He reports his symptoms startedwith a stuffy nose and fatigue and having hot and cold, then felt better yesterday. He reports he feels worse again today. 1. LOCATION: Nasal congestion/pressure 2. ONSET: 03/03/22 3. SEVERITY: moderate 4. RECURRENT SYMPTOM: yes 5. NASAL CONGESTION: yes 6. NASAL DISCHARGE: at times 7. FEVER: Having hot and cold over last 3 days but has not checked temp 8. OTHER SYMPTOMS: Fatigue for 4 days. Denies sore throat, denies cough, denies earache, denies difficulty breathing Protocols used: SINUS PAIN OR [id number] documented in this encounterPaul[facility]05-25-[facility]22 Miscellaneous Notes* Telephone Encounter - Karin Yeager LPN - 02/17/2022 9:15 AM EDT Pt requests refill. Last refill 11/14/20 Qty: 60 with 3 refills ISABELLA: 11/25/21 NOV: 05/28/22 Karin Yeager LPN documented in this encounterPaul[facility]04-19-2022 Miscellaneous Notes* Telephone Encounter - Cheyanne Malhotra RN - 01/12/2022 10:53 AM EDT Patient calling to verify dates of hospitalization in 2019. Dates verified. Cheyanne Malhotra RN [facility] Diagnosis Pain in left wrist Pain in joint, forearm [facility] Diagnosis Pain in left wrist Pain in joint, forearm [facility]* Diagnosis URI, acute- Primary Acute upper respiratory infections of unspecified site documented in this encounter [facility]* Diagnosis Essential hypertension Unspecified essential hypertension documented in this encounter [facility] note* Diagnosis Type 2 diabetes mellitus without complication, without long-term current use of insulin (HCC)- Primary Essential hypertension Unspecified essential hypertension Dyslipidemia Other and unspecified hyperlipidemia DESIRE (generalized anxiety disorder) Generalized anxiety disorder Left ventricular diastolic dysfunction with preserved systolic function Prostate cancer screening Special screening for malignant neoplasm of prostate [facility] Diagnosis Essential hypertension Unspecified essential hypertension [facility]* Diagnosis Essential hypertension Unspecified essential hypertension [facility]* Diagnosis Pain in left wrist Pain in joint, forearm [facility]* Diagnosis Dry skin dermatitis- Primary Contact dermatitis and other eczema due to other specified agent Impacted cerumen of left ear Impacted cerumen [facility]* Diagnosis Well adult exam- Primary Routine general medical examination at a [facility] Essential hypertension Unspecified essential hypertension Type 2 diabetes mellitus without complication, without long-term current use of insulin (HCC) Dyslipidemia Other and unspecified hyperlipidemia Left ventricular diastolic dysfunction with preserved systolic function Mild concentric left ventricular hypertrophy (LVH) DESIRE (generalized anxiety disorder) Generalized anxiety disorder Screening for colon cancer Special screening for malignant neoplasms, colon Encounter for immunization Need for other specified prophylactic vaccination against single bacterial disease [facility]* Diagnosis Central retinal artery occlusion, left eye- Primary Central artery occlusion of retina Type 2 diabetes mellitus without retinopathy (HCC) Type II or unspecified type diabetes mellitus without mention of complication, not stated as uncontrolled 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 Hypertensive retinopathy, bilateral Nuclear sclerosis of both eyes [facility]* Diagnosis Type 2 diabetes mellitus without complication, without long-term current use of insulin (HCC)- Primary Essential hypertension Unspecified essential hypertension Dyslipidemia Other and unspecified hyperlipidemia Mild concentric left ventricular hypertrophy (LVH) DESIRE (generalized anxiety disorder) Generalized anxiety disorder Encounter for immunization Need for other specified prophylactic vaccination against single bacterial disease Prostate cancer screening Special screening for malignant neoplasm of prostate [facility] noteNo assessment information availableWKindred [facility] Work Phone: Evaluation note* Diagnosis Acute midline low back pain without sciatica- Primary [facility]* Diagnosis Muscle strain of left upper back, subsequent encounter- Primary [facility]* Diagnosis Well adult exam- Primary Routine general medical examination at a health care facility Type 2 diabetes mellitus without complication, without long-term current use of insulin (HCC) Essential hypertension Unspecified essential hypertension Dyslipidemia Other and unspecified hyperlipidemia DESIRE (generalized anxiety disorder) Generalized anxiety disorder ED (erectile dysfunction) of organic origin Impotence of organic origin Ex-smoker Personal history of tobacco use, presenting hazards to health Screening for colon cancer Special screening for malignant neoplasms, colon Seborrheic dermatitis of scalp Other seborrheic dermatitis [facility]* Diagnosis Central retinal artery occlusion, left eye- Primary Central artery occlusion of retina Type 2 diabetes mellitus without complication, without long-term current use of insulin (HCC) 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 Hypertensive retinopathy, bilateral Nuclear sclerosis of both eyes [facility]* Diagnosis Type 2 diabetes mellitus without complication, without long-term current use of insulin (HCC)- Primary Essential hypertension Unspecified essential hypertension Dyslipidemia Other and unspecified hyperlipidemia Mild concentric left ventricular hypertrophy (LVH) Left ventricular diastolic dysfunction with preserved systolic function DESIRE (generalized anxiety disorder) Generalized anxiety disorder Encounter for immunization Need for other specified prophylactic vaccination against single bacterial disease Need for vaccination Need for prophylactic vaccination and inoculation against unspecified single disease Prostate cancer screening Special screening for malignant neoplasm of prostate Medication management Encounter for long-term (current) use of other medications [facility]* Diagnosis Right hand pain- Primary Pain in limb Right hand weakness Muscle weakness (generalized) [facility]* Diagnosis Right hand pain Pain in limb Right hand weakness Muscle weakness (generalized) [facility]* Diagnosis Right hand pain- Primary Pain in limb [facility] Diagnosis Encounter for immunization- Primary Need for other specified prophylactic vaccination against single bacterial disease [facility]* Diagnosis Well adult exam- Primary Routine general medical examination at a health care facility Type 2 diabetes mellitus without complication, without long-term current use of insulin (HCC) Essential hypertension Unspecified essential hypertension Dyslipidemia Other and unspecified hyperlipidemia Mild concentric left ventricular hypertrophy (LVH) Left ventricular diastolic dysfunction with preserved systolic function DESIRE (generalized anxiety disorder) Generalized anxiety disorder Foot callus Corns and callosities Screening for depression Right wrist pain Pain in joint, forearm Numbness and tingling in right hand Disturbance of skin sensation [facility] Additional Instructions 1. Apply ice to your back 6-10 times a day 2. Continue taking the ibuprofen you were prescribed by your doctor 3. Take the hydrocodone as instructed.[facility] Work Phone: Retybr for referral (narrative)* Diagnostic Procedure Only (Routine) - Closed Specialty Diagnoses / Procedures Referred By Contac t Referred To Contact XR IMAGING Diagnoses Right hand pain Right hand weakness Procedures XR WRIST GENERAL 3V PA/LAT/OBL RIGHT RADEX WRIST COMPLETE MINIMUM 3 VIEWS Tip Jones APRN.METEOROLOGY TEACHER [address] [place] [address] [place] [address] Referral ID Status Reason Start Date Expiration Date V isits Requested Visits Authorized [id number] Closed Auto-Generate d Referral OON/Self Pay Override 09/20/2024 10/20/2025 1 1 [facility] for referral (narrative)No reason for referral information availableWKindred Hospital [facility] Work Phone: Reaxyl for visit Narrative* Diagnostic Procedure Only (Routine) - Closed Specialty Diagnoses / Procedures Referred By Contac t Referred To Contact XR IMAGING Diagnoses Right hand pain Right hand weakness Procedures XR WRIST GENERAL 3V PA/LAT/OBL RIGHT RADEX WRIST COMPLETE MINIMUM 3 VIEWS Tip Jones, PRECISION FARMING SPECIALIST.METEOROLOGY TEACHER [address] [place] [address] [place] [address] Referral ID Status Reason Start Date Expiration Date V isits Requested Visits Authorized [id number] Closed Auto-Generate d Referral OON/Self Pay Override 09/20/2024 10/20/2025 1 1 [facility] Concerns Infection Onset Date Last Indicated Resolved Time COVID-19 Rule-Out 03/08/2022 03/08/2022 Reason for Referral Specialty Diagnoses / Procedures Referred By Contac t Referred To Contact Ophthalmology Diagnoses Type 2 diabetes mellitus without complication, without long-term current use of insulin (HCC) Procedures CONSULT TO OPHTHALMOLOGY OFFICE/OUTPATIENT [facility] 60-74 MINUTES Garrett Andrews MD [address] [place] [address] Referral ID Status Reason Start Date Expiration Date Visits Requested Visits Authorized [id number] Pending Review PCP Requested Referral 12/10/2022 12/10/2023 1 1 Specialty Diagnoses / Procedures Referred By Contact Referred To Contact Ophthalmology / OPHTHALMOLOGY Diagnoses Type 2 diabetes mellitus without complication, without long-term current use of insulin (HCC) Procedures CONSULT TO OPHTHALMOLOGY CONSULT TO OPHTHALMOLOGY OFFICE/OUTPATIENT [facility] MDM 60 MINUTES Noemi Dickens PA-C [address] [place] [address] Opht [facility] [address] [place] [address] Referral ID Status Reason Start Date Expiration Date Visits Requested Visits Authorized [id number] Pending Review PCP Requested Referral OON/Self Pay Override 01/25/2024 01/24/2025 1 1 Specialty Diagnoses / Procedures Referred By Contkiley t Referred To Contact [facility] Diagnoses Right hand pain Procedures CONSULT TO PHYSICAL THERAPY PHYSICAL THERAPY EVALUATION HIGH COMPLEX 45 MINS Tip Jones APRN.METEOROLOGY TEACHER [address] [place] [address] [facility] [address] [place] [address] Referral ID Status Reason Start Date Expiration Date Visits Requested Visits Authorized [id number] Pending Review Auto-Generat ed Referral 4 09/24/2025 1 1 Chief Complaint and Reason for Visit Chief Complaint back Chief Complaint Admit Date NON DOT Drug Screen March 01, 2025 11:55 am Advance Directives No Advanced Directives Records Found Advance Directive Response Recorded Date/ Time Living Will No September 01 11:34pm Power of Triple Air Valve Tester No September 01, 2023 11:34pm Summary Purpose Family History No Family History Records Found Additional Source Comments Source Comments (unrecognize d section and content) In the event this informatio n is protected by the Federal Confidentiality of Alcohol and Drug Abuse Patient Records regulations: The Federal rules restrict any use of the information to criminally investigate or prosecute any alcohol or drug abuse patient.[facility] HospitalIn the event this information is protected by the Federal Confidentiality of Alcohol and Drug Abuse Patient Records regulations: The Federal rules restrict any use of the information to criminally investigate or prosecute any alcohol or drug abuse patient.[facility] HospitalIn the event this information is protected by the Federal Confidentiality of Alcohol and Drug Abuse Patient Records regulations: The Federal rules restrict any use of the information to criminally investigate or prosecute any alcohol or drug abuse patient.[facility] HospitalIn the event this information is protected by the Federal Confidentiality of Alcohol and Drug Abuse Patient Records regulations: The Federal rules restrict any use of the information to criminally investigate or prosecute any alcohol or drug abuse patient.[facility] HospitalIn the event this information is protected by the Federal Confidentiality of Alcohol and Drug Abuse Patient Records regulations: The Federal rules restrict any use of the information to criminally investigate or prosecute any alcohol or drug abuse patient.[facility] HospitalIn the event this information is protected by the Federal Confidentiality of Alcohol and Drug Abuse Patient Records regulations: The Federal rules restrict any use of the information to criminally investigate or prosecute any alcohol or drug abuse patient.[facility] HospitalIn the event this information is protected by the Federal Confidentiality of Alcohol and Drug Abuse Patient Records regulations: The Federal rules restrict any use of the information to criminally investigate or prosecute any alcohol or drug abuse patient.[facility] HospitalIn the event this information is protected by the Federal Confidentiality of Alcohol and Drug Abuse Patient Records regulations: The Federal rules restrict any use of the information to criminally investigate or prosecute any alcohol or drug abuse patient.[facility] the event this information is protected by the Federal Confidentiality of Alcohol and Drug Abuse Patient Records regulations: The Federal rules restrict any use of the information to criminally investigate or prosecute any alcohol or drug abuse patient.[facility] HospitalIn the event this information is protected by the Federal Confidentiality of Alcohol and Drug Abuse Patient Records regulations: The Federal rules restrict any use of the information to criminally investigate or prosecute any alcohol or drug abuse patient.[facility] HospitalIn the event this information is protected by the Federal Confidentiality of Alcohol and Drug Abuse Patient Records regulations: The Federal rules restrict any use of the information to criminally investigate or prosecute any alcohol or drug abuse patient.[facility] HospitalIn the event this information is protected by the Federal Confidentiality of Alcohol and Drug Abuse Patient Records regulations: The Federal rules restrict any use of the information to criminally investigate or prosecute any alcohol or drug abuse patient.[facility] HospitalIn the event this information is protected by the Federal Confidentiality of Alcohol and Drug Abuse Patient Records regulations: The Federal rules restrict any use of the information to criminally investigate or prosecute any alcohol or drug abuse patient.[facility] HospitalIn the event this information is protected by the Federal Confidentiality of Alcohol and Drug Abuse Patient Records regulations: The Federal rules restrict any use of the information to criminally investigate or prosecute any alcohol or drug abuse patient.[facility] HospitalIn the event this information is protected by the Federal Confidentiality of Alcohol and Drug Abuse Patient Records regulations: The Federal rules restrict any use of the information to criminally investigate or prosecute any alcohol or drug abuse patient.[facility] HospitalIn the event this information is protected by the Federal Confidentiality of Alcohol and Drug Abuse Patient Records regulations: The Federal rules restrict any use of the information to criminally investigate or prosecute any alcohol or drug abuse patient.[facility] HospitalIn the event this information is protected by the Federal Confidentiality of Alcohol and Drug Abuse Patient Records regulations: The Federal rules restrict any use of the information to criminally investigate or prosecute any alcohol or drug abuse patient.[facility] HospitalIn the event this information is protected by the Federal Confidentiality of Alcohol and Drug Abuse Patient Records regulations: The Federal rules restrict any use of the information to criminally investigate or prosecute any alcohol or drug abuse patient.[facility] HospitalIn the event this information is protected by the Federal Confidentiality of Alcohol and Drug Abuse Patient Records regulations: The Federal rules restrict any use of the information to criminally investigate or prosecute any alcohol or drug abuse patient.[facility] HospitalIn the event this information is protected by the Federal Confidentiality of Alcohol and Drug Abuse Patient Records regulations: The Federal rules restrict any use of the information to criminally investigate or prosecute any alcohol or drug abuse patient.[facility] HospitalIn the event this information is protected by the Federal Confidentiality of Alcohol and Drug Abuse Patient Records regulations: The Federal rules restrict any use of the information to criminally investigate or prosecute any alcohol or drug abuse patient.[facility] HospitalIn the event this information is protected by the Federal Confidentiality of Alcohol and Drug Abuse Patient Records regulations: The Federal rules restrict any use of the information to criminally investigate or prosecute any alcohol or drug abuse patient.[facility] HospitalIn the event this information is protected by the Federal Confidentiality of Alcohol and Drug Abuse Patient Records regulations: The Federal rules restrict any use of the information to criminally investigate or prosecute any alcohol or drug abuse patient.[facility] HospitalIn the event this information is protected by the Federal Confidentiality of Alcohol and Drug Abuse Patient Records regulations: The Federal rules restrict any use of the information to criminally investigate or prosecute any alcohol or drug abuse patient.[facility] HospitalIn the event this information is protected by the Federal Confidentiality of Alcohol and Drug Abuse Patient Records regulations: The Federal rules restrict any use of the information to criminally investigate or prosecute any alcohol or drug abuse patient.[facility] HospitalIn the event this information is protected by the Federal Confidentiality of Alcohol and Drug Abuse Patient Records regulations: The Federal rules restrict any use of the information to criminally investigate or prosecute any alcohol or drug abuse patient.[facility] HospitalIn the event this information is protected by the Federal Confidentiality of Alcohol and Drug Abuse Patient Records regulations: The Federal rules restrict any use of the information to criminally investigate or prosecute any alcohol or drug abuse patient.[facility] HospitalIn the event this information is protected by the Federal Confidentiality of Alcohol and Drug Abuse Patient Records regulations: The Federal rules restrict any use of the information to criminally investigate or prosecute any alcohol or drug abuse patient.[facility] HospitalIn the event this information is protected by the Federal Confidentiality of Alcohol and Drug Abuse Patient Records regulations: The Federal rules restrict any use of the information to criminally investigate or prosecute any alcohol or drug abuse patient.[facility] HospitalIn the event this information is protected by the Federal Confidentiality of Alcohol and Drug Abuse Patient Records regulations: The Federal rules restrict any use of the information to criminally investigate or prosecute any alcohol or drug abuse patient.[facility] HospitalIn the event this information is protected by the Federal Confidentiality of Alcohol and Drug Abuse Patient Records regulations: The Federal rules restrict any use of the information to criminally investigate or prosecute any alcohol or drug abuse patient.[facility] HospitalIn the event this information is protected by the Federal Confidentiality of Alcohol and Drug Abuse Patient Records regulations: The Federal rules restrict any use of the information to criminally investigate or prosecute any alcohol or drug abuse patient.[facility] HospitalIn the event this information is protected by the Federal Confidentiality of Alcohol and Drug Abuse Patient Records regulations: The Federal rules restrict any use of the information to criminally investigate or prosecute any alcohol or drug abuse patient.[facility] HospitalIn the event this information is protected by the Federal Confidentiality of Alcohol and Drug Abuse Patient Records regulations: The Federal rules restrict any use of the information to criminally investigate or prosecute any alcohol or drug abuse patient.[facility] HospitalIn the event this information is protected by the Federal Confidentiality of Alcohol and Drug Abuse Patient Records regulations: The Federal rules restrict any use of the information to criminally investigate or prosecute any alcohol or drug abuse patient.[facility] HospitalIn the event this information is protected by the Federal Confidentiality of Alcohol and Drug Abuse Patient Records regulations: The Federal rules restrict any use of the information to criminally investigate or prosecute any alcohol or drug abuse patient.[facility] HospitalIn the event this information is protected by the Federal Confidentiality of Alcohol and Drug Abuse Patient Records regulations: The Federal rules restrict any use of the information to criminally investigate or prosecute any alcohol or drug abuse patient.[facility] HospitalIn the event this information is protected by the Federal Confidentiality of Alcohol and Drug Abuse Patient Records regulations: The Federal rules restrict any use of the information to criminally investigate or prosecute any alcohol or drug abuse patient.[facility] HospitalIn the event this information is protected by the Federal Confidentiality of Alcohol and Drug Abuse Patient Records regulations: The Federal rules restrict any use of the information to criminally investigate or prosecute any alcohol or drug abuse patient.[facility] HospitalIn the event this information is protected by the Federal Confidentiality of Alcohol and Drug Abuse Patient Records regulations: The Federal rules restrict any use of the information to criminally investigate or prosecute any alcohol or drug abuse patient.[facility] HospitalIn the event this information is protected by the Federal Confidentiality of Alcohol and Drug Abuse Patient Records regulations: The Federal rules restrict any use of the information to criminally investigate or prosecute any alcohol or drug abuse patient.[facility] HospitalIn the event this information is protected by the Federal Confidentiality of Alcohol and Drug Abuse Patient Records regulations: The Federal rules restrict any use of the information to criminally investigate or prosecute any alcohol or drug abuse patient.[facility] HospitalIn the event this information is protected by the Federal Confidentiality of Alcohol and Drug Abuse Patient Records regulations: The Federal rules restrict any use of the information to criminally investigate or prosecute any alcohol or drug abuse patient.[facility] HospitalIn the event this information is protected by the [facility] Confidentiality of Alcohol and Drug Abuse Patient Records regulations: The Federal rules restrict any use of the information to criminally investigate or prosecute any alcohol or drug abuse patient.[facility] HospitalIn the event this information is protected by the Federal Confidentiality of Alcohol and Drug Abuse Patient Records regulations: The Federal rules restrict any use of the information to criminally investigate or prosecute any alcohol or drug abuse patient.[facility] Reason for Visit (unrecogniz ed section and content) Reason Comments Physical Specialty Diagnoses / Procedures Referred By Bren cervantes Referred To Contact INTERNAL MEDICINE Diagnoses 6 mo follow up Procedures office visit Garrett Andrews MD [address] [place] [address] Phone: tel: fax: [address] [place] [address] [address] [place] [address] Referral ID Status Reason Start Date Expiration Date Visits Requested Visits Authorized [id number] Denied OON/Self Pay Override OON Notification Letter Clearance Not Met -Financial Clearance Bypassed 01/25/2024 05/04/2025 1 0 Reason Comments F/U 6 months Specialty Diagnoses / Procedures Referred By Bren cervantes Referred To Contact INTERNAL MEDICINE Diagnoses 6 mo follow up Procedures office visit Garrett Andrews MD [address] [place] [address] [place] [address] [address] [place] [address] Referral ID Status Reason Start Date Expiration Date Visits Requested Visits Authorized [id number] Pending Review OON/Self Pay Override 01/25/2024 05/04/2025 1 1 Specialty Diagnoses / Procedures Referred By Bren t Referred To Contact FAMILY MEDICINE Diagnoses follow up Procedures follow up Garrett Andrews MD [address] [place] [address] [facility] [address] [place] [address] Referral ID Status Reason Start Date Expiration Date V isits Requested Visits Authorized [id number] Closed OON/Self Pay Override Patient Cleared - INN Insurance Found 07/04/2023 12/31/2023 1 1 Reason Comments Patient Question Reason Comments Refill Request Reason Comments Cough chest congestion, si nus pain and pressure, nausea x6 days Reason Comments Nasal Congestion Fatigue questionable fever Reason Onset Date Comments Refill Request 05/16/2022 Reason Comments Results Reason Onset Date Comments Refill Request 09/05/2022 Reason Comments Ear Pain Left ear feels plugg ed or just swollen because he itched inside it with a pen x 1 day Reason Comments Central Retinal Artery Occlusion Follow Up Left eye 2014 Floaters Both Eyes No increase of martinez e. Diabetes Diet controlled no p ills or insulin Specialty Diagnoses / Procedures Referred By Bren t Referred To Contact Ophthalmology Diagnoses Type 2 diabetes mellitus without complication, without long-term current use of insulin ([facility]) Procedures CONSULT TO OPHTHALMOLOGY OFFICE/OUTPATIENT NEW HIGH MDM 60-74 MINUTES Garrett Andrews MD [address] [place] [address] Referral ID Status Reason Start Date Expiration Date Visits Requested Visits Authorized [id number] Pending Review PCP Requested Referral 12/10/2022 12/10/2023 1 1 Reason Comments Orders Reason Onset Date Comments Refill Request 05/15/2023 Reason Onset Date Comments Refill Request 07/08/2023 Reason Comments ext document ER Note Reason Comments Follow Up Pulled muscle - back pain Specialty Diagnoses / Procedures Referred By Bren t Referred To Contact FAMILY MEDICINE Diagnoses Very painful back. Procedures Office visit Self [facility] [address] [place] [address] Referral ID Status Reason Start Date Expiration Date Visits Requested Visits Authorized [id number] Outside PCP OON/Self Pay Override 3 03/02/2024 1 1 Reason Onset Date Comments Refill Request 01/08/2024 Reason Comments Yearly Exam Specialty Diagnoses / Procedures Referred By Bren t Referred To Contact FAMILY MEDICINE Diagnoses physical Procedures FOLLOW-UP E-ASSESSMENT Garrett Andrews MD [address] [place] [address] [facility] [address] [place] [address] Referral ID Status Reason Start Date Expiration Date Visits Requested Visits Authorized [id number] Pending Review OON/Self Pay Override 3 02/05/2024 1 1 Reason Comments Central Retinal Artery Occlusion Follow Up Diabetic Eye Exam Type 2 NIDDM Specialty Diagnoses / Procedures Referred By Contact Referred To Contact Ophthalmology / OPHTHALMOLOGY Diagnoses Type 2 diabetes mellitus without complication, without long-term current use of insulin ([facility]) Procedures CONSULT TO OPHTHALMOLOGY CONSULT TO OPHTHALMOLOGY OFFICE/OUTPATIENT [facility] 60 MINUTES Noemi Dickens PA-C [address] [place] [address] Opht [facility] [address] [place] [address] Referral ID Status Reason Start Date Expiration Date V isits Requested Visits Authorized [id number] Closed PCP Requested Referral OON/Self Pay Override 04/10/2024 09/25/2024 1 1 Reason Comments Wrist Pain Right wrist X 6 malik hs Specialty Diagnoses / Procedures Referred By Bren t Referred To Contact INTERNAL MEDICINE Diagnoses 6 mo follow up Procedures office visit Garrett Andrews MD [address] [place] [address] [place] [address] [address] [facility] [place] [address] Reason Comments Results Reason Comments Imm/Inj Reason Onset Date Comments Refill Request 01/06/2025 Reason Onset Date Comments Refill Request 02/03/2025 Care Teams (unrecognized sec tion and content) Civil Design Specialist Relationship Specialty Start Date End Date Garrett Andrews MD [address] [facility] [place] [place] [address] PCP - General Family Practice 03/26/14 Civil Design Specialist Relationship Specialty Start Date End Date Garrett Andrews MD [facility] [place] [address] PCP - General Family Practice 03/26/14 Civil Design Specialist Relationship Specialty Start Date End Date Garrett Andrews MD [facility] [place] [address] PCP - General Family Practice 03/26/14 Civil Design Specialist Relationship Specialty Start Date End Date Garrett Andrews MD [address] [place] [address], [place] [address] PCP - General Family Practice 03/26/14 Civil Design Specialist Relationship Specialty Start Date End Date Garrett Andrews MD [address] [place] [address], [place] [address] PCP - General Family Practice 03/26/14 Civil Design Specialist Relationship Specialty Start Date End Date Garrett Andrews MD [address] [place] [address], [place] [address] PCP - General Family Practice 03/26/14 Civil Design Specialist Relationship Specialty Start Date End Date Garrett Andrews MD [address] [place] [address], [place] [address] PCP - General Family Practice 03/26/14 Civil Design Specialist Relationship Specialty Start Date End Date Garrett Andrews MD [address] [place] [address], [place] [address] PCP - General Family Medicine 03/26/14 Civil Design Specialist Relationship Specialty Start Date End Date Garrett Andrews MD [address] [facility] [place] [address] PCP - General Family Medicine 03/26/14 Civil Design Specialist Relationship Specialty Start Date End Date Garrett Andrews MD [address] [facility] [place] [address] PCP - General Family Medicine 03/26/14 Civil Design Specialist Relationship Specialty Start Date End Date Garrett Andrews MD [address] [facility] [place] [address] PCP - General Family Medicine 03/26/14 Civil Design Specialist Relationship Specialty Start Date End Date Garrett Andrews MD [address] [facility] [place] [address] PCP - General Family Medicine 03/26/14 Civil Design Specialist Relationship Specialty Start Date End Date Garrett Andrews MD [address] [facility] [place] [address] PCP - General Family Medicine 03/26/14 Civil Design Specialist Relationship Specialty Start Date End Date Garrett Andrews MD [address] [facility] [place] [address] PCP - General Family Medicine 03/26/14 Civil Design Specialist Relationship Specialty Start Date End Date Garrett Andrews MD [address] [facility] [place] [address] PCP - General Family Medicine 03/26/14 Civil Design Specialist Relationship Specialty Start Date End Date Garrett Andrews MD [address] [facility] [place] [address] PCP - General Family Medicine 03/26/14 Civil Design Specialist Relationship Specialty Start Date End Date Garrett Andrews MD [address] [facility] [place] [address] PCP - General Family Medicine 03/26/14 Civil Design Specialist Relationship Specialty Start Date End Date Garrett Andrews MD [address] [place] [address] PCP - General Family Medicine 03/26/14 Civil Design Specialist Relationship Specialty Start Date End Date Garrett Andrews MD [address] [place] [address] PCP - General Family Medicine 03/26/14 Civil Design Specialist Relationship Specialty Start Date End Date Garrett Andrews MD [address] [place] [address] PCP - General Family Medicine 03/26/14 Team Status: Active Member Role Status Dates Dr. Garrett Andrews MD Family Provider Active Dr. Garrett Andrews MD Primary Care Provider Active Team Status: Inactive Member Role Status Dates Dr. Garrett Andrews MD Primary Care Provider Active Dr. Chris Gorman MD Emergency Provider Active Civil Design Specialist Relationship Specialty Start Date End Date Garrett Andrews MD [address] [place] [address] PCP - General Family Medicine 03/26/14 Civil Design Specialist Relationship Specialty Start Date End Date Garrett Andrews MD [address] [place] [address] PCP - General Family Medicine 03/26/14 Civil Design Specialist Relationship Specialty Start Date End Date Garrett Andrews MD [address] [place] [address] PCP - General Family Medicine 03/26/14 Civil Design Specialist Relationship Specialty Start Date End Date Garrett Andrews MD [address] [place] [address] PCP - General Family Medicine 03/26/14 Civil Design Specialist Relationship Specialty Start Date End Date Garrett Andrews MD [address] [place] [address] PCP - General Family Medicine 03/26/14 Civil Design Specialist Relationship Specialty Start Date End Date Garrett Andrews MD [address] [place] [address] PCP - General Family Medicine 03/26/14 Civil Design Specialist Relationship Specialty Start Date End Date Garrett Andrews MD [address] [place] [address] PCP - General Family Medicine 03/26/14 Civil Design Specialist Relationship Specialty Start Date End Date Garrett Andrews MD [address] [place] [address] PCP - General Family Medicine 03/26/14 Tip Jones APRN.METEOROLOGY TEACHER [address] [place] [address] [employer] [facility] 09/01/24 Noemi Dickens PA-C [address] [place] [address] [employer] [facility] 09/01/24 Civil Design Specialist Relationship Specialty Start Date End Date Garrett Andrews MD [address] [place] [address] PCP - General Family Medicine 03/26/14 Tip Jones APRN.METEOROLOGY TEACHER [address] [place] [address] Machine Tool Rebuilder Family [facility] 09/01/24 Noemi Dickens PA-C [address] [facility] [place] [address] [facility] 09/01/24 Civil Design Specialist Relationship Specialty Start Date End Date Garrett Andrews MD [address] [facility] [place] [address] PCP - General Family Medicine 03/26/14 Tip Jones APRN.METEOROLOGY TEACHER [address] [place] [address] [facility] 09/01/24 Noemi Dickens PA-C [address] [place] [address] [facility] 09/01/24 Civil Design Specialist Relationship Specialty Start Date End Date Garrett Andrews MD [address] [place] [address] PCP - General Family Medicine 03/26/14 Tip Jones APRN.METEOROLOGY TEACHER [address] [place] [address] [facility] 09/01/24 Noemi Dickens PA-C [address] [facility] [place] [address] [facility] 09/01/24 Civil Design Specialist Relationship Specialty Start Date End Date Garrett Andrews MD [address] [facility] [place] [address] PCP - General Family Medicine 03/26/14 Tip Jones APRN.METEOROLOGY TEACHER [address] [place] [address] [employer] 09/01/24 Noemi Dickens PA-C [address] [place] [address] [employer] [facility] 09/01/24 Civil Design Specialist Relationship Specialty Start Date End Date Garrett Andrews MD [address] [place] [address] PCP - General Family Medicine 03/26/14 Tip Jones, SEEMA.METEOROLOGY TEACHER [address] [place] [address] [employer] [facility] 09/01/24 Noemi Dickens PA-C [address] [place] [address] [employer] [facility] 09/01/24 Civil Design Specialist Relationship Specialty Start Date End Date Garrett Andrews MD [address] [place] [address] PCP - General Family Medicine 03/26/14 Tip Jones, PRECISION FARMING SPECIALIST.METEOROLOGY TEACHER [address] [place] [address] [employer] 09/01/24 Noemi Dickens PA-C [address] [place] [address] [employer] 09/01/24 Civil Design Specialist Relationship Specialty Start Date End Date Garrett Andrews MD [address] [place] [address] PCP - General Family Medicine 03/26/14 Tip Jones APRN.METEOROLOGY TEACHER [address] [place], [place] [address] [facility] 09/01/24 Noemi Dickens PA-C [address] [place], [place] [address] [facility] 09/01/24 Civil Design Specialist Relationship Specialty Start Date End Date Garrett Andrews MD [address] [place], [place] [address] PCP - General [facility] 03/26/14 Tip Jones APRN.METEOROLOGY TEACHER [address] [place], [place] [address] [facility] 09/01/24 Noemi Dickens PA-C [address] [place], [place] [address] [facility] 09/01/24 Team Status: Inactive Member Role Status Dates Dr. Garrett Andrews MD Primary Care Provider Active Start: February 07, 2025 End: February 07, 2025 Dr. Garrett Andrews MD Attending Provider Active Start: February 07, 2025 End: February 07, 2025 Dr. Garrett Andrews MD Referring Provider Active Start: February 07, 2025 End: February 07, 2025 Team Status: Inactive Member Role Status Dates Dr. Garrett Andrews MD Primary Care Provider Active Start: March 01, 2025 End: March 01, 2025 Dr. Garrett Andrews MD Referring Provider Active Start: March 01, 2025 End: March 01, 2025 Indio SCALES, PA Attending Provider Active Sta rt: March 01, 2025 End: March 01, 2025 Goals (unrecognized section and content) Goals may be documented in a n alternate sectionGoals may be documented in an alternate sectionGoals may be documented in an alternate section (unrecognized sect ion and content) No Status Records FoundNo Status Records Found INFORMATION SOURCE (unrecogn ized section and content) DATE CREATED AUTHOR 02/09/2025 [facility] DATE CREATED AUTHOR AUTHOR'S CASIMIRO JEAN 03/17/2025 [facility] FOR RECORDS PERTAINING TO PATIENTS WHO ARE OR HAVE BEEN ENROLLED IN A CHEMICAL DEPENDENCY/SUBSTANCEABUSE PROGRAM, SOME INFORMATION MAY BE OMITTED. This clinical summary was aggregated from multiple sources. Caution should be exercised in using it in the provision of clinical care. This summary normalizes information from multiple sources, and as a consequence, information in this document may materially change the coding, format and clinical context of patient data. In addition, data may be omitted in some cases. CLINICAL DECISIONS SHOULD BE BASED ON THE PRIMARY CLINICAL RECORDS. [facility] [employer] [facility]. provides no warranty or guarantee of the accuracy or completeness of information in this document.
--- NOTE | 2025-04-12 19:48 | EX.ED.DYSGE1 ---
HPI History of Present Illness Chief Complaint: Cellulitis Informant: patient Narrative Narrative: Patient is a [id number] 64-year-old male who denies any past medical history but chart view shows he does have a history of hypertension and who continues smoke cigarettes presenting with swelling and pain to his right index finger over the first metacarpal. Notes the past 2 days he said that decreased energy. Did have some chills last night. Initially did not recall wounds/injury as the cause of this but then recalls that he spilt hot wax on his finger 3 days ago. The next morning he has had notes a small blister on his finger and then every day its gotten larger. Denies any fevers. Took ibuprofen 800 mg at 5 PM. Has been putting Neosporin on it. [facility] Medical History Chronic neck and back pain Stroke Shoulder pain Arthritis HTN (hypertension) Home Medications ?Medication ?Instructions ?Recorded ?Last Taken ?Type Lisinopril 40 mg PO BID 05/11/17 Unknown History Metoprolol Tartrate 200 mg PO BREAKFAST 05/11/17 Unknown History hydrochlorothiazide 25 mg tablet 25 mg PO DAILY 05/11/17 Unknown History paroxetine HCl 10 mg tablet (Paxil) 10 mg PO DAILY 05/11/17 Unknown History amlodipine 5 mg tablet 5 mg PO DAILY 04/12/25 Unknown History atorvastatin 40 mg tablet 40 mg PO DAILY 04/12/25 Unknown History doxycycline hyclate 100 mg capsule 100 mg PO BID #14 caps 04/12/25 Unknown Rx Allergy/AdvReac Type Severity Reaction Status Date / Time Penicillins Allergy Unknown Verified 04/12/25 17:55 Family History Other Hypertension Social History household members: none Smoking Status: Current every day smoker tobacco type: cigarettes alcohol intake: never ROS ROS ED Constitutional Constitutional ED: Reports chills; Denies fever(s) Gastrointestinal Gastrointestinal: Denies nausea or vomiting Musculoskeletal Musculoskeletal: Reports other Details: right index finger pain , swelling to right hand ; Denies arthralgias or myalgias Integumentary Reports other Details: wound to right index finger Neurologic Neurologic: Denies paresthesias or weakness Hematologic/Lymphatic Hematologic/Lymphatic: Denies easy bleeding or easy bruising EXAM Physical Exam Const Vital Signs: 04/12/25 17:55 Temperature 99.2 F H Temperature Source Oral Pulse Rate 78 Respiratory Rate 16 Blood Pressure 154/78 H Blood Pressure Mean 103 Pulse Ox 94 Oxygen Delivery Method Room Air Positive well nourished and well developed General Appearance ED: well developed and NAD HEENT Reports moist mucous membranes Neck supple Chest Wall inspection of chest normal Resp normal respiratory effort and clear to auscultation bilaterally Cardio regular rate and regular rhythm Extremity Extremity Narrative: Swelling of the right hand with large blister type wounds on the dorsal aspect of the right index finger over the first metacarpal. No pain with passive flexion and extension of the finger. No Knievel signs present. No bony tenderness present. No pain with short arc range of motion of the finger. Neuro oriented x3 Sensorium / Orientation: alert Motor Exam: Negative for general weakness Psych mental status grossly normal Skin Skin Narrative: Patient has 4 cm x 2.5 cm blister with some mild surrounding erythema to the dorsal aspect of the right index finger along the first metacarpal. No active drainage appreciated. No associated lymphangitic streaking however there are some mild erythema at the proximal aspect of this blister. Negative Nikolsky sign. No lesions noted in the mouth. MDM MDM MDM Narrative Medical decision making narrative: Patient evaluated for pain and swelling to his right hand with a wound to his right index finger. Appears to have a blister there. Does report a burn that started this about 3 days ago. Concern for possibly developing secondary infection given increased pain and associated chills. Is overall quite well-appearing right now. He is not immunocompromise. Feel that he would be a good candidate for outpatient antibiotic treatment at this time. Does report some slight drainage from the wound out in triage and states that it was serous and denies any associated purulence. Patient will be treated with doxycycline and given first dose in the emergency room. Counseled on sun precautions associated with doxycycline. Counseled on return precautions including worsening chills, developing fever or worsening of wound/red streaking especially over the next 48 hours. He verbalized agreement understand this plan. Discharged home in stable condition. Is counseled to stop using triple antibiotic ointment as it is possible this to be causing localized reaction as well. Encouraged use bacitracin send. Given outpatient hand follow-up Discharge Plan Triage Chief Complaint: Cellulitis ED Provider: Natalia Elena Dx/Rx/DC Orders Clinical Impression: Cellulitis of right index finger, Burn of right index finger Prescriptions: New doxycycline hyclate 100 mg capsule 100 mg PO BID Qty: 14 0RF No Action hydrochlorothiazide 25 MG tablet 25 mg PO DAILY Lisinopril 40 mg PO BID Metoprolol Tartrate 200 mg PO BREAKFAST paroxetine HCl [Paxil] 10 MG tablet 10 mg PO DAILY atorvastatin 40 mg tablet 40 mg PO DAILY amlodipine 5 mg tablet 5 mg PO DAILY Primary Care Provider: Garrett Arora Referrals: Garrett Arora MD [Primary Care Provider] - Pravin Devine MD [Med Staff - Active Staff] - Activity Restrictions/Additional Instructions: Please stop putting triple antibiotic ointment on the wound. It is possible could be making the wound worse (some people have skin reaction to it). I would recommend using [id number] bacitracin ointment instead. If the redness swelling worsens especially over the next 48 hours please return to the emergency room. You develop fever please return the emergency room. I suspect you have a burn and it is possible there could be a secondary infection versus localized inflammation. We have started you on antibiotics for this. You may continue to take your ibuprofen for pain and swelling Print Language: Cambodian Disposition Disposition: Home, Self Care
[2025-04-12 20:15] VITALS: BP 140/90; PULSE 66; RESP 16; TEMP 36.7; O2SAT 97
== END 2025-04-12 20:18 | disposition home or self-care (01) ==
PROVIDERS: Emergency Provider Emergency Medicine; PCP Family Medicine; Visit Provider Emergency Medicine
DX: L03.011 Cellulitis of right finger (principal); T23.221A Burn of second degree of single right finger (nail) except thumb, initial encounter; X19.XXXA Contact with other heat and hot substances, initial encounter; I10 Essential (primary) hypertension; F17.210 Nicotine dependence, cigarettes, uncomplicated; Z79.899 Other long term (current) drug therapy
CPT/HCPCS: 99282

== ENCOUNTER → 2025-08-15 | Outpatient (CLI) | payer BC, SELFPAY ==
[2025-08-15 13:26] LABS: Hematocrit 40.6 % (40-54); Hemoglobin 14.1 g/dL (13.0-16.5); Immature Granulocytes Count 0.040 X10^3/uL (0.0-0.0); Mean Corp Hgb Conc 34.7 g/dL (32-36); Mean Corpuscular Volume 91.0 fL (80-94); Mean Platelet Vol. 10.0 fl (6.2-12.0); NRBC Flagged by Analyzer 0 % (0-5); Platelet Count 247 K/mm3 (150-450); RBC Distribution Width CV 12.2 % (11.6-14.6); RBC Distribution Width SD 40.6 fl (35.1-43.9); Red Blood Count 4.46 M/mm3 (4.6-6.2); White Blood Count 7.9 K/mm3 (4.4-11.0)
[2025-08-15 13:39] LABS: AST(SGOT) 28 U/L (<=37); Alanine Aminotransfer ALT/SGPT 34 U/L (<=46); Albumin, Serum 4.3 g/dL (3.4-4.8); Alkaline Phosphatase 86 U/L (40-129); Anion Gap 13 (5-15); BUN 22 mg/dL (4-19); BUN/Creat Ratio 18.9 RATIO (10-20); Calcium,Total 9.5 mg/dL (7.6-11.0); Carbon Dioxide 23.2 mmol/L (21.0-32.0); Chloride 102 mmol/L (98-108); Cholesterol 161 mg/dL (<=200); Globulin 3.2 g/dL (2.2-4.2); Glucose 130 mg/dL (70-99); Low Density Lipoprotein Calc. 72 mg/dL; Potassium 3.6 mmol/L (3.3-5.1); Triglycerides 325 mg/dL; Very Low Density Lipoprotein 65 mg/dL (5-40); cholesterol:hdl ratio screen 4.39
== END | disposition home or self-care (01) ==
LOC: LAB 12:31
PROVIDERS: PCP Family Medicine; Referring Provider Physician Assistant; Visit Provider Physician Assistant
DX: I10 Essential (primary) hypertension (principal); E11.9 Type 2 diabetes mellitus without complications; E78.5 Hyperlipidemia, unspecified
CPT/HCPCS: 36415; 80053; 80061; 83036; 85025